=== PATIENT | female | born 1955 | race Caucasian/White ===

== ENCOUNTER 2017-12-02 00:24 | Day surgery (SDC) | payer MEDICARE, OTHER ==
[~2017-12-02 00:24] MED LIST: ALPR.5 PO; AMIT25 PO; AMIT50 PO; ASPI81CH PO; ATOR80 PO; AZIT250 PO; Acidophilus La100 GM PO; Amitriptyline H50 MG PO; Bactrim Ds Tab1 EACH PO; CEFD300 PO; CEFP200 PO; CEPH500 PO; CITA20 PO; CLOP75 PO; Cleocin HCl300 MG PO; Clindamycin HC300 MG PO; Diflucan100 MG PO; ESCI20 PO; FURO40 PO; FURO80 PO; GABA300 PO; GEMF600 PO; HYDACE5 PO; HYDR1TAB94 PO; Hydrocodone-Ap1 EA23 PO; INS70/30PN SC; INSLI100I SC; INSULANI SC; INSULANPEN; INSULANPEN SC; Keflex500 MG PO; LASIX PO; LEVAQUIN PO; LEVE500 PO; LORA.5 PO; METO2.5 PO; Mucinex600 MG PO; OMEP20ER PO; OMEPRAZOLE MAGN20 MG PO; OXYACE5T PO; Omeprazole20 M1 PO; POTCHL20ER PO; PRAV20 PO; PROM25 PO; Percocet 5-3251 EACH PO; RANI150; RANI150 PO; RANO500T PO; ROSU10TA PO; SULTRIDS PO; TRIHYD5075 PO; Ultram50 MG PO; ZESTORETIC 20-121 EA
[2017-12-05] MEDS ORDERED: LEVO750 PO (17:59)
[2018-03-14] MEDS ORDERED: ATOR40TA PO (11:02)
[2018-10-24] MEDS ORDERED: BUPR150ER PO (22:43)
[2018-10-27] MEDS ORDERED: CEPH500 PO (08:46)
[2018-10-27] MEDS ORDERED: Nystop60 GM TOP (08:49)
[2018-10-27] MEDS ORDERED: LAMISIL (08:58)
== END 2017-12-02 23:11 | disposition home or self-care (01) ==
LOC: WOUND 00:24
DX: Z48.00 Encounter for change or removal of nonsurgical wound dressing (principal); E11.21 Type 2 diabetes mellitus with diabetic nephropathy; E11.22 Type 2 diabetes mellitus with diabetic chronic kidney disease; E11.51 Type 2 diabetes mellitus with diabetic peripheral angiopathy without gangrene; I70.245 Atherosclerosis of native arteries of left leg with ulceration of other part of foot; I87.2 Venous insufficiency (chronic) (peripheral); R60.0 Localized edema; J44.9 Chronic obstructive pulmonary disease, unspecified; F17.210 Nicotine dependence, cigarettes, uncomplicated
CPT/HCPCS: 87070; 87077; 87147; 87186; 87205; G0463

== ENCOUNTER 2017-12-06 21:17 | Inpatient (IN) | payer MEDICARE, OTHER ==
[~2017-12-06] VITALS: Ht 165.1 cm; Wt 104.1 kg
[~2017-12-06 21:17] MED LIST changes: +LEVO750 PO
[2017-12-06] MEDS ORDERED: Bactrim Ds Tab1 EACH PO (22:19)
[2017-12-06 23:03] LABS: BASOPHILS ABSOLUTE AUTO 0.05 K/mm3 (0.00-0.23); BASOPHILS PERCENT AUTO 0 % (0-2); EOSINOPHILS ABSOLUTE AUTO 0.38 K/mm3 (0.00-0.68); EOSINOPHILS PERCENT AUTO 3 % (0-6); Hematocrit 39.2 % (33.0-51.0); Hemoglobin 13.1 g/dL (11.5-16.0); IMMATURE GRAN ABSOLUTE AUTO 0.12 K/mm3 (0.00-0.10); IMMATURE GRAN PERCENT AUTO 1 % (0-1); LYMPHOCYTES ABSOLUTE AUTO 3.14 K/mm3 (0.84-5.20); LYMPHOCYTES PERCENT AUTO 22 % (21-46); MONOCYTES ABSOLUTE AUTO 0.85 K/mm3 (0.16-1.47); MONOCYTES PERCENT AUTO 6 % (4-13); Mean Corpuscular HGB 30.8 pg (26.0-34.0); Mean Corpuscular HGB Conc 33.4 g/dL (31.5-36.5); Mean Corpuscular Volume 92 fL (80-100); Mean Platelet Volume 10.6 fL (9.1-12.4); NEUTROPHILS ABSOLUTE AUTO 9.95 K/mm3 (1.96-9.15); NEUTROPHILS PERCENT AUTO 69 % (41-73); Platelet Count 335 K/mm3 (150-400); RDW Coefficient Variation 14.7 % (11.7-14.2); RDW Standard Deviation 49.6 fL (35.1-46.3); Red Blood Cell Count 4.25 M/mm3 (3.80-5.20); White Blood Cell Count 14.49 K/mm3 (4.00-11.30)
[2017-12-06 23:19] LABS: Albumin, Blood 2.3 g/dL (3.4-5.0); Albumin/Globulin Ratio 0.5 (0.8-1.8); Bilirubin, Total 0.2 mg/dL (0.1-1.0); Bun/Creatinine Ratio 34.2 (12.0-20.0); Calcium, Blood 8.7 mg/dL (8.5-10.1); Creatinine, Blood 1.17 mg/dL (0.40-1.00); Globulin, Blood 4.9 g/dL (2.2-4.0); Potassium, Blood 5.1 mmol/L (3.5-5.5); Total Protein, Blood 7.2 g/dL (6.4-8.2)
[2017-12-07 06:52] LABS: BASOPHILS ABSOLUTE AUTO 0.05 K/mm3 (0.00-0.23); BASOPHILS PERCENT AUTO 0 % (0-2); EOSINOPHILS ABSOLUTE AUTO 0.38 K/mm3 (0.00-0.68); EOSINOPHILS PERCENT AUTO 3 % (0-6); Hematocrit 36.3 % (33.0-51.0); Hemoglobin 12.1 g/dL (11.5-16.0); IMMATURE GRAN ABSOLUTE AUTO 0.09 K/mm3 (0.00-0.10); IMMATURE GRAN PERCENT AUTO 1 % (0-1); LYMPHOCYTES ABSOLUTE AUTO 3.69 K/mm3 (0.84-5.20); LYMPHOCYTES PERCENT AUTO 30 % (21-46); MONOCYTES ABSOLUTE AUTO 0.66 K/mm3 (0.16-1.47); MONOCYTES PERCENT AUTO 5 % (4-13); Mean Corpuscular HGB 30.7 pg (26.0-34.0); Mean Corpuscular HGB Conc 33.3 g/dL (31.5-36.5); Mean Corpuscular Volume 92 fL (80-100); Mean Platelet Volume 10.7 fL (9.1-12.4); NEUTROPHILS ABSOLUTE AUTO 7.33 K/mm3 (1.96-9.15); NEUTROPHILS PERCENT AUTO 60 % (41-73); Platelet Count 310 K/mm3 (150-400); RDW Coefficient Variation 14.8 % (11.7-14.2); RDW Standard Deviation 50.5 fL (35.1-46.3); Red Blood Cell Count 3.94 M/mm3 (3.80-5.20)
[2017-12-07 07:07] LABS: Anion Gap 5 mmol/L (6-16); Blood Urea Nitrogen 41 mg/dL (8-24); Bun/Creatinine Ratio 32.8 (12.0-20.0); CO2, Blood 29 mmol/L (21-32); Calcium, Blood 8.3 mg/dL (8.5-10.1); Chloride, Blood 97 mmol/L (98-108); Creatinine, Blood 1.25 mg/dL (0.40-1.00); Glomerular Filtration Rate 46 (60-); Glucose, Blood 325 mg/dL (70-99); Phosphorus, Blood 4.3 mg/dL (2.5-4.9); Potassium, Blood 5.1 mmol/L (3.5-5.5); Sodium, Blood 131 mmol/L (136-145)
[2017-12-08 04:53] LABS: BASOPHILS ABSOLUTE AUTO 0.03 K/mm3 (0.00-0.23); BASOPHILS PERCENT AUTO 0 % (0-2); EOSINOPHILS ABSOLUTE AUTO 0.44 K/mm3 (0.00-0.68); EOSINOPHILS PERCENT AUTO 4 % (0-6); Hematocrit 37.8 % (33.0-51.0); Hemoglobin 12.4 g/dL (11.5-16.0); IMMATURE GRAN ABSOLUTE AUTO 0.06 K/mm3 (0.00-0.10); IMMATURE GRAN PERCENT AUTO 1 % (0-1); LYMPHOCYTES ABSOLUTE AUTO 2.53 K/mm3 (0.84-5.20); LYMPHOCYTES PERCENT AUTO 24 % (21-46); MONOCYTES ABSOLUTE AUTO 0.58 K/mm3 (0.16-1.47); MONOCYTES PERCENT AUTO 6 % (4-13); Mean Corpuscular HGB 30.5 pg (26.0-34.0); Mean Corpuscular HGB Conc 32.8 g/dL (31.5-36.5); Mean Corpuscular Volume 93 fL (80-100); Mean Platelet Volume 10.1 fL (9.1-12.4); NEUTROPHILS ABSOLUTE AUTO 6.73 K/mm3 (1.96-9.15); NEUTROPHILS PERCENT AUTO 65 % (41-73); Platelet Count 285 K/mm3 (150-400); RDW Coefficient Variation 14.6 % (11.7-14.2); RDW Standard Deviation 49.7 fL (35.1-46.3); Red Blood Cell Count 4.07 M/mm3 (3.80-5.20); White Blood Cell Count 10.37 K/mm3 (4.00-11.30)
[2017-12-08 05:13] LABS: Bun/Creatinine Ratio 31.7 (12.0-20.0); Calcium, Blood 8.6 mg/dL (8.5-10.1); Creatinine, Blood 1.01 mg/dL (0.40-1.00); Potassium, Blood 4.5 mmol/L (3.5-5.5)
[2017-12-08 10:52] LABS: Vancomycin, Trough 21.8 ug/mL (5.0-10.0)
[2017-12-09 11:48] LABS: Vancomycin, Trough 14.4 ug/mL (5.0-10.0)
[2017-12-10 05:44] LABS: BASOPHILS ABSOLUTE AUTO 0.02 K/mm3 (0.00-0.23); BASOPHILS PERCENT AUTO 0 % (0-2); EOSINOPHILS ABSOLUTE AUTO 0.41 K/mm3 (0.00-0.68); EOSINOPHILS PERCENT AUTO 5 % (0-6); Hematocrit 36.1 % (33.0-51.0); Hemoglobin 12.2 g/dL (11.5-16.0); IMMATURE GRAN ABSOLUTE AUTO 0.09 K/mm3 (0.00-0.10); IMMATURE GRAN PERCENT AUTO 1 % (0-1); LYMPHOCYTES ABSOLUTE AUTO 2.83 K/mm3 (0.84-5.20); LYMPHOCYTES PERCENT AUTO 34 % (21-46); MONOCYTES ABSOLUTE AUTO 0.66 K/mm3 (0.16-1.47); MONOCYTES PERCENT AUTO 8 % (4-13); Mean Corpuscular HGB 30.8 pg (26.0-34.0); Mean Corpuscular HGB Conc 33.8 g/dL (31.5-36.5); Mean Corpuscular Volume 91 fL (80-100); Mean Platelet Volume 10.4 fL (9.1-12.4); NEUTROPHILS ABSOLUTE AUTO 4.34 K/mm3 (1.96-9.15); NEUTROPHILS PERCENT AUTO 52 % (41-73); Platelet Count 289 K/mm3 (150-400); RDW Coefficient Variation 14.3 % (11.7-14.2); RDW Standard Deviation 48.2 fL (35.1-46.3); Red Blood Cell Count 3.96 M/mm3 (3.80-5.20); White Blood Cell Count 8.35 K/mm3 (4.00-11.30)
[2017-12-10 06:12] LABS: Anion Gap 6 mmol/L (6-16); Blood Urea Nitrogen 19 mg/dL (8-24); Bun/Creatinine Ratio 25.5 (12.0-20.0); CO2, Blood 29 mmol/L (21-32); Calcium, Blood 8.5 mg/dL (8.5-10.1); Chloride, Blood 103 mmol/L (98-108); Creatinine, Blood 0.75 mg/dL (0.40-1.00); Glomerular Filtration Rate >60 (60-); Glucose, Blood 220 mg/dL (70-99); Magnesium, Blood 2.1 mg/dL (1.6-2.4); Potassium, Blood 3.9 mmol/L (3.5-5.5); Sodium, Blood 138 mmol/L (136-145)
[2017-12-10] MEDS ORDERED: ACET325 PO (11:59)
[2017-12-10] MEDS ORDERED: LEVO750 PO (12:00)
[2017-12-10] MEDS ORDERED: ACIDOPHILUS LA1 EACH PO (12:00)
[2017-12-10] MEDS ORDERED: Silvadene20 GM TOP (12:01)
[2017-12-10] MEDS ORDERED: Vibramycin100 MG PO (12:02)
[2018-03-14] MEDS ORDERED: ATOR40TA PO (11:02)
[2018-10-24] MEDS ORDERED: BUPR150ER PO (22:43)
[2018-10-27] MEDS ORDERED: CEPH500 PO (08:46)
[2018-10-27] MEDS ORDERED: Nystop60 GM TOP (08:49)
[2018-10-27] MEDS ORDERED: LAMISIL (08:58)
== END 2017-12-10 14:49 | disposition home or self-care (01) | DRG 638 ==
LOC: ER 21:17 → ERHOLD 22:37 → MEDS 22:37
PROVIDERS: Emergency Medicine; Family Medicine; Internal Medicine
PROC: 3E0234Z Introduction of Serum, Toxoid and Vaccine into Muscle, Percutaneous Approach (ICD-10-PCS; principal; 2017-12-07)
DX: E11.621 Type 2 diabetes mellitus with foot ulcer (principal); B69.89 Cysticercosis of other sites; N17.9 Acute kidney failure, unspecified; N18.3 Chronic kidney disease, stage 3 (moderate); L03.116 Cellulitis of left lower limb; E87.1 Hypo-osmolality and hyponatremia; E11.65 Type 2 diabetes mellitus with hyperglycemia; D72.829 Elevated white blood cell count, unspecified; F17.210 Nicotine dependence, cigarettes, uncomplicated; H26.9 Unspecified cataract; I73.9 Peripheral vascular disease, unspecified; J44.9 Chronic obstructive pulmonary disease, unspecified; L53.9 Erythematous condition, unspecified; M79.605 Pain in left leg; Z23 Encounter for immunization; Z16.30 Resistance to unspecified antimicrobial drugs; Z79.4 Long term (current) use of insulin; Z79.82 Long term (current) use of aspirin; Z86.73 Personal history of transient ischemic attack (TIA), and cerebral infarction without residual deficits
CPT/HCPCS: 36415; 73590; 73620; 80048; 80053; 80069; 80202; 82947; 83605; 83735; 85025; 85651; 87040; 87070; 87075; 87077; 87147; 87186; 87205; 93922; 96365; 96366; 96367; 96372; 96375; 99283; 99285; G0008; J1170; J1650; J1815; J1956; J2405; J3010; J3370; J7030; J7050; Q2038

== ENCOUNTER 2017-12-14 14:19 | Emergency (ER) | payer MEDICARE, OTHER ==
[~2017-12-14] VITALS: Ht 165.1 cm; Wt 108.9 kg
[~2017-12-14 14:19] MED LIST changes: +ACET325 PO; +ACIDOPHILUS LA1 EACH PO; +Silvadene20 GM TOP; +Vibramycin100 MG PO
[2017-12-14 16:08] LABS: BASOPHILS ABSOLUTE AUTO 0.08 K/mm3 (0.00-0.23); BASOPHILS PERCENT AUTO 1 % (0-2); EOSINOPHILS ABSOLUTE AUTO 0.44 K/mm3 (0.00-0.68); EOSINOPHILS PERCENT AUTO 3 % (0-6); Hematocrit 43.3 % (33.0-51.0); Mean Corpuscular HGB 29.9 pg (26.0-34.0); Mean Corpuscular HGB Conc 32.3 g/dL (31.5-36.5); Mean Corpuscular Volume 93 fL (80-100); Mean Platelet Volume 10.4 fL (9.1-12.4); Platelet Count 299 K/mm3 (150-400); RDW Coefficient Variation 14.2 % (11.7-14.2); RDW Standard Deviation 47.5 fL (35.1-46.3); Red Blood Cell Count 4.68 M/mm3 (3.80-5.20); White Blood Cell Count 13.97 K/mm3 (4.00-11.30)
[2017-12-14 16:17] LABS: IMMATURE GRAN ABSOLUTE AUTO 0.14 K/mm3 (0.00-0.10); IMMATURE GRAN PERCENT AUTO 1 % (0-1); LYMPHOCYTES PERCENT AUTO 34 % (21-46); MONOCYTES PERCENT AUTO 6 % (4-13); NEUTROPHILS ABSOLUTE AUTO 7.71 K/mm3 (1.96-9.15); NEUTROPHILS PERCENT AUTO 55 % (41-73)
[2017-12-14 16:30] LABS: Alanine Aminotransfer (ALT/SGP 22 U/L (12-78); Albumin, Blood 2.5 g/dL (3.4-5.0); Albumin/Globulin Ratio 0.5 (0.8-1.8); Alk Phos 132 U/L (50-136); Anion Gap 5 mmol/L (6-16); Aspartate Aminotrans (AST/SGOT 17 U/L (12-37); Bilirubin, Total 0.3 mg/dL (0.1-1.0); Blood Urea Nitrogen 12 mg/dL (8-24); Bun/Creatinine Ratio 20.7 (12.0-20.0); CO2, Blood 26 mmol/L (21-32); Calcium, Blood 8.8 mg/dL (8.5-10.1); Chloride, Blood 105 mmol/L (98-108); Creatinine, Blood 0.58 mg/dL (0.40-1.00); Globulin, Blood 4.8 g/dL (2.2-4.0); Glomerular Filtration Rate >60 (60-); Glucose, Blood 113 mg/dL (70-99); Potassium, Blood 4.8 mmol/L (3.5-5.5); Sodium, Blood 136 mmol/L (136-145); Total Protein, Blood 7.3 g/dL (6.4-8.2)
[2018-03-14] MEDS ORDERED: ATOR40TA PO (11:02)
[2018-10-24] MEDS ORDERED: BUPR150ER PO (22:43)
[2018-10-27] MEDS ORDERED: CEPH500 PO (08:46)
[2018-10-27] MEDS ORDERED: Nystop60 GM TOP (08:49)
[2018-10-27] MEDS ORDERED: LAMISIL (08:58)
== END 2017-12-14 16:57 | disposition left against medical advice (07) ==
LOC: ER 14:19
PROVIDERS: Emergency Medicine
DX: Z53.21 Procedure and treatment not carried out due to patient leaving prior to being seen by health care provider (principal)
CPT/HCPCS: 36415; 80053; 85025; 99283

== ENCOUNTER 2017-12-15 15:23 | Emergency (ER) | payer MEDICARE, OTHER ==
[~2017-12-15] VITALS: Ht 165.1 cm; Wt 108.9 kg
[2018-03-14] MEDS ORDERED: ATOR40TA PO (11:02)
[2018-10-24] MEDS ORDERED: BUPR150ER PO (22:43)
[2018-10-27] MEDS ORDERED: CEPH500 PO (08:46)
[2018-10-27] MEDS ORDERED: Nystop60 GM TOP (08:49)
[2018-10-27] MEDS ORDERED: LAMISIL (08:58)
== END 2017-12-15 20:40 | disposition home or self-care (01) ==
LOC: ER 15:23
DX: E11.621 Type 2 diabetes mellitus with foot ulcer (principal); L97.529 Non-pressure chronic ulcer of other part of left foot with unspecified severity; L97.929 Non-pressure chronic ulcer of unspecified part of left lower leg with unspecified severity; Z88.5 Allergy status to narcotic agent; Z88.6 Allergy status to analgesic agent; Z88.0 Allergy status to penicillin; Z88.8 Allergy status to other drugs, medicaments and biological substances; Z79.899 Other long term (current) drug therapy; Z79.82 Long term (current) use of aspirin; Z79.4 Long term (current) use of insulin; Z79.2 Long term (current) use of antibiotics; J44.9 Chronic obstructive pulmonary disease, unspecified; Z86.73 Personal history of transient ischemic attack (TIA), and cerebral infarction without residual deficits; F17.200 Nicotine dependence, unspecified, uncomplicated
CPT/HCPCS: 99283

== ENCOUNTER 2017-12-16 10:20 | Day surgery (SDC) | payer MEDICARE, OTHER ==
[2018-03-14] MEDS ORDERED: ATOR40TA PO (11:02)
[2018-10-24] MEDS ORDERED: BUPR150ER PO (22:43)
[2018-10-27] MEDS ORDERED: CEPH500 PO (08:46)
[2018-10-27] MEDS ORDERED: Nystop60 GM TOP (08:49)
[2018-10-27] MEDS ORDERED: LAMISIL (08:58)
== END 2017-12-16 11:29 | disposition home or self-care (01) ==
LOC: WOUND 10:20
PROC: 0HBLXZZ Excision of Left Lower Leg Skin, External Approach (ICD-10-PCS; principal; 2017-12-16)
DX: Z48.00 Encounter for change or removal of nonsurgical wound dressing (principal); E11.21 Type 2 diabetes mellitus with diabetic nephropathy; E11.22 Type 2 diabetes mellitus with diabetic chronic kidney disease; I70.209 Unspecified atherosclerosis of native arteries of extremities, unspecified extremity; I87.2 Venous insufficiency (chronic) (peripheral); R60.0 Localized edema; E11.621 Type 2 diabetes mellitus with foot ulcer; J44.9 Chronic obstructive pulmonary disease, unspecified; F17.210 Nicotine dependence, cigarettes, uncomplicated; E11.51 Type 2 diabetes mellitus with diabetic peripheral angiopathy without gangrene
CPT/HCPCS: G0463

== ENCOUNTER 2017-12-26 09:17 | Emergency (ER) | payer MEDICARE, OTHER ==
[~2017-12-26] VITALS: Ht 165.1 cm; Wt 108.9 kg
[2017-12-26] MEDS ORDERED: BUME2 PO (09:42)
[2018-03-14] MEDS ORDERED: ATOR40TA PO (11:02)
[2018-10-24] MEDS ORDERED: BUPR150ER PO (22:43)
[2018-10-27] MEDS ORDERED: CEPH500 PO (08:46)
[2018-10-27] MEDS ORDERED: Nystop60 GM TOP (08:49)
[2018-10-27] MEDS ORDERED: LAMISIL (08:58)
== END 2017-12-26 11:05 | disposition home or self-care (01) ==
LOC: ER 09:17
DX: S01.81XA Laceration without foreign body of other part of head, initial encounter (principal); J44.9 Chronic obstructive pulmonary disease, unspecified; E11.9 Type 2 diabetes mellitus without complications; F17.210 Nicotine dependence, cigarettes, uncomplicated; Z79.82 Long term (current) use of aspirin; Z90.49 Acquired absence of other specified parts of digestive tract; Z90.710 Acquired absence of both cervix and uterus; Z86.73 Personal history of transient ischemic attack (TIA), and cerebral infarction without residual deficits; Z88.6 Allergy status to analgesic agent; Z88.0 Allergy status to penicillin; Z91.09 Other allergy status, other than to drugs and biological substances; Z88.5 Allergy status to narcotic agent; Z88.8 Allergy status to other drugs, medicaments and biological substances; Z79.899 Other long term (current) drug therapy; Z79.4 Long term (current) use of insulin; W05.0XXA Fall from non-moving wheelchair, initial encounter
CPT/HCPCS: 99283

== ENCOUNTER 2018-01-06 10:20 | Day surgery (SDC) | payer MEDICARE, OTHER ==
[~2018-01-06 10:20] MED LIST changes: +BUME2 PO
[2018-03-14] MEDS ORDERED: ATOR40TA PO (11:02)
[2018-10-24] MEDS ORDERED: BUPR150ER PO (22:43)
[2018-10-27] MEDS ORDERED: CEPH500 PO (08:46)
[2018-10-27] MEDS ORDERED: Nystop60 GM TOP (08:49)
[2018-10-27] MEDS ORDERED: LAMISIL (08:58)
== END 2018-01-06 14:20 | disposition home or self-care (01) ==
LOC: WOUND
DX: Z48.00 Encounter for change or removal of nonsurgical wound dressing (principal); E11.621 Type 2 diabetes mellitus with foot ulcer; E11.21 Type 2 diabetes mellitus with diabetic nephropathy; E11.622 Type 2 diabetes mellitus with other skin ulcer; I70.209 Unspecified atherosclerosis of native arteries of extremities, unspecified extremity; E11.22 Type 2 diabetes mellitus with diabetic chronic kidney disease; I87.2 Venous insufficiency (chronic) (peripheral); R60.0 Localized edema; J44.9 Chronic obstructive pulmonary disease, unspecified; F17.210 Nicotine dependence, cigarettes, uncomplicated
CPT/HCPCS: G0463

== ENCOUNTER 2018-02-25 19:08 | Emergency (ER) | payer MEDICARE, OTHER ==
[~2018-02-25] VITALS: Ht 165.1 cm; Wt 108.9 kg
[~2018-02-25 19:08] MED LIST changes: +BUME1; -BUME2 PO
[2018-02-25] MEDS ORDERED: Bactrim Ds Tab1 EACH PO (20:03)
[2018-02-25] MEDS ORDERED: LEVFLO500 PO (20:03)
== END 2018-02-25 20:24 | disposition home or self-care (01) ==
LOC: ER 19:08
DX: L97.529 Non-pressure chronic ulcer of other part of left foot with unspecified severity (principal); E11.9 Type 2 diabetes mellitus without complications; J44.9 Chronic obstructive pulmonary disease, unspecified; F17.210 Nicotine dependence, cigarettes, uncomplicated; Z88.5 Allergy status to narcotic agent; Z88.0 Allergy status to penicillin; Z88.8 Allergy status to other drugs, medicaments and biological substances; Z79.82 Long term (current) use of aspirin; Z79.4 Long term (current) use of insulin
CPT/HCPCS: 87070; 87077; 87205; 99283

== ENCOUNTER 2018-03-08 07:57 | Day surgery (SDC) | payer MEDICARE, OTHER ==
[~2018-03-08 07:57] MED LIST changes: -BUME1; +BUME2 PO; +LEVFLO500 PO
[2018-03-14] MEDS ORDERED: ATOR40TA PO (11:02)
== END 2018-03-08 09:31 | disposition home or self-care (01) ==
LOC: WOUND
DX: Z48.00 Encounter for change or removal of nonsurgical wound dressing (principal); E11.51 Type 2 diabetes mellitus with diabetic peripheral angiopathy without gangrene; I70.202 Unspecified atherosclerosis of native arteries of extremities, left leg; F17.210 Nicotine dependence, cigarettes, uncomplicated; Z22.322 Carrier or suspected carrier of Methicillin resistant Staphylococcus aureus; S80.829A Blister (nonthermal), unspecified lower leg, initial encounter; E66.9 Obesity, unspecified; Z79.4 Long term (current) use of insulin; L97.822 Non-pressure chronic ulcer of other part of left lower leg with fat layer exposed
CPT/HCPCS: 99406; G0463

== ENCOUNTER 2018-05-25 12:17 | Day surgery (SDC) | payer MEDICARE, OTHER ==
[~2018-05-25 12:17] MED LIST changes: +ATOR40TA PO
== END 2018-05-25 14:43 | disposition home or self-care (01) ==
LOC: WOUND
PROC: 0HBNXZZ Excision of Left Foot Skin, External Approach (ICD-10-PCS; principal; 2018-05-25)
PROC: 0HBLXZZ Excision of Left Lower Leg Skin, External Approach (ICD-10-PCS; principal; 2018-05-25)
DX: E11.621 Type 2 diabetes mellitus with foot ulcer (principal); E11.622 Type 2 diabetes mellitus with other skin ulcer; I70.249 Atherosclerosis of native arteries of left leg with ulceration of unspecified site; L97.922 Non-pressure chronic ulcer of unspecified part of left lower leg with fat layer exposed; L97.509 Non-pressure chronic ulcer of other part of unspecified foot with unspecified severity; Z79.4 Long term (current) use of insulin
CPT/HCPCS: G0463

== ENCOUNTER → 2018-07-11 | Outpatient (CLI) | payer MEDICARE, OTHER | LOC: LAB 18:10 → LAB SHORT 18:10 | DX: L08.9 Local infection of the skin and subcutaneous tissue, unspecified (principal); I87.2 Venous insufficiency (chronic) (peripheral); L97.829 Non-pressure chronic ulcer of other part of left lower leg with unspecified severity | CPT/HCPCS: 87070; 87205 ==

== ENCOUNTER 2018-08-13 22:24 | Emergency (ER) | payer MEDICARE, OTHER ==
[~2018-08-13] VITALS: Ht 165.1 cm; Wt 108.9 kg
[2018-08-13 23:13] LABS: BASOPHILS ABSOLUTE AUTO 0.04 K/mm3 (0.00-0.23); BASOPHILS PERCENT AUTO 0 % (0-2); EOSINOPHILS ABSOLUTE AUTO 0.33 K/mm3 (0.00-0.68); EOSINOPHILS PERCENT AUTO 3 % (0-6); Hematocrit 43.6 % (33.0-51.0); Hemoglobin 14.4 g/dL (11.5-16.0); IMMATURE GRAN ABSOLUTE AUTO 0.08 K/mm3 (0.00-0.10); IMMATURE GRAN PERCENT AUTO 1 % (0-1); LYMPHOCYTES ABSOLUTE AUTO 3.41 K/mm3 (0.84-5.20); LYMPHOCYTES PERCENT AUTO 27 % (21-46); MONOCYTES ABSOLUTE AUTO 0.76 K/mm3 (0.16-1.47); MONOCYTES PERCENT AUTO 6 % (4-13); Mean Corpuscular HGB 29.6 pg (26.0-34.0); Mean Corpuscular Volume 90 fL (80-100); Mean Platelet Volume 11.3 fL (9.1-12.4); NEUTROPHILS ABSOLUTE AUTO 8.26 K/mm3 (1.96-9.15); NEUTROPHILS PERCENT AUTO 64 % (41-73); Platelet Count 300 K/mm3 (150-400); RDW Coefficient Variation 14.6 % (11.7-14.2); RDW Standard Deviation 47.7 fL (35.1-46.3); Red Blood Cell Count 4.86 M/mm3 (3.80-5.20); White Blood Cell Count 12.88 K/mm3 (4.00-11.30)
[2018-08-13 23:32] LABS: Albumin, Blood 2.8 g/dL (3.4-5.0); Albumin/Globulin Ratio 0.5 (0.8-1.8); Bilirubin, Total 0.2 mg/dL (0.1-1.0); Bun/Creatinine Ratio 52.6 (12.0-20.0); Calcium, Blood 8.7 mg/dL (8.5-10.1); Creatinine, Blood 1.16 mg/dL (0.40-1.00); Globulin, Blood 5.7 g/dL (2.2-4.0); Potassium, Blood 3.9 mmol/L (3.5-5.5); Total Protein, Blood 8.5 g/dL (6.4-8.2)
[2018-08-14 02:56] LABS: Source, Urine Clean Catch
[2018-08-14 03:11] LABS: Bilirubin, Urine Neg (Neg); Blood, Urine Neg (Neg); Glucose Qualitative, Urine 2+ (Neg); Ketones, Urine Neg (Neg); Leukocyte Esterase, Urine 3+ (Neg); Nitrite, Urine Neg (Neg); Protein, Urine 3+ (Neg); Urobilinogen, Urine NORM (Normal)
[2018-08-14 03:31] LABS: Appearance, Urine Hazy (Clear); Color, Urine Yellow (P-Yellow)
[2018-08-14 03:33] LABS: Bacteria Mod /hpf; Red Blood Cells, Urine Not Seen /hpf (0-2); Squamous Epithelial Cells Many /hpf (Few)
== END 2018-08-14 03:35 | disposition home or self-care (01) ==
LOC: ER 22:24
PROVIDERS: Emergency Medicine
DX: S13.9XXA Sprain of joints and ligaments of unspecified parts of neck, initial encounter (principal); X58.XXXA Exposure to other specified factors, initial encounter; Z88.5 Allergy status to narcotic agent; Z88.8 Allergy status to other drugs, medicaments and biological substances; Z88.6 Allergy status to analgesic agent; Z88.0 Allergy status to penicillin; Z79.899 Other long term (current) drug therapy; Z79.4 Long term (current) use of insulin; Z79.82 Long term (current) use of aspirin; E11.9 Type 2 diabetes mellitus without complications; J44.9 Chronic obstructive pulmonary disease, unspecified; Z86.73 Personal history of transient ischemic attack (TIA), and cerebral infarction without residual deficits; F17.200 Nicotine dependence, unspecified, uncomplicated
CPT/HCPCS: 36415; 70450; 71046; 80053; 81001; 85025; 93005; 93010; 96360; 96361; 99285-25; J7030

== ENCOUNTER 2018-12-01 14:35 | Day surgery (SDC) | payer MEDICARE, OTHER ==
[~2018-12-01 14:35] MED LIST changes: +BUPR150ER PO; +LAMISIL; +Nystop60 GM TOP
== END 2018-12-01 22:46 | disposition home or self-care (01) ==
LOC: WOUND 14:35
DX: L97.322 Non-pressure chronic ulcer of left ankle with fat layer exposed (principal); L97.822 Non-pressure chronic ulcer of other part of left lower leg with fat layer exposed; L97.512 Non-pressure chronic ulcer of other part of right foot with fat layer exposed; L97.811 Non-pressure chronic ulcer of other part of right lower leg limited to breakdown of skin; L97.821 Non-pressure chronic ulcer of other part of left lower leg limited to breakdown of skin; I87.2 Venous insufficiency (chronic) (peripheral); I73.9 Peripheral vascular disease, unspecified; E11.65 Type 2 diabetes mellitus with hyperglycemia; E11.40 Type 2 diabetes mellitus with diabetic neuropathy, unspecified; I69.959 Hemiplegia and hemiparesis following unspecified cerebrovascular disease affecting unspecified side; I11.0 Hypertensive heart disease with heart failure; I25.10 Atherosclerotic heart disease of native coronary artery without angina pectoris; Z89.511 Acquired absence of right leg below knee

== ENCOUNTER 2018-12-13 08:45 | Day surgery (SDC) | payer MEDICARE, OTHER | END 2018-12-13 22:35 | disposition home or self-care (01) | LOC: WOUND 08:45 | DX: L97.322 Non-pressure chronic ulcer of left ankle with fat layer exposed (principal); L97.822 Non-pressure chronic ulcer of other part of left lower leg with fat layer exposed; L97.821 Non-pressure chronic ulcer of other part of left lower leg limited to breakdown of skin; L97.828 Non-pressure chronic ulcer of other part of left lower leg with other specified severity; L97.812 Non-pressure chronic ulcer of other part of right lower leg with fat layer exposed; I87.2 Venous insufficiency (chronic) (peripheral); Z89.511 Acquired absence of right leg below knee; I73.9 Peripheral vascular disease, unspecified; E11.65 Type 2 diabetes mellitus with hyperglycemia; E11.40 Type 2 diabetes mellitus with diabetic neuropathy, unspecified; I69.959 Hemiplegia and hemiparesis following unspecified cerebrovascular disease affecting unspecified side; I11.0 Hypertensive heart disease with heart failure; I25.10 Atherosclerotic heart disease of native coronary artery without angina pectoris; Z72.0 Tobacco use; E11.622 Type 2 diabetes mellitus with other skin ulcer; I50.9 Heart failure, unspecified; R60.0 Localized edema; M62.562 Muscle wasting and atrophy, not elsewhere classified, left lower leg | CPT/HCPCS: 36415; 73720; 80048; 82374; 82565; 84132; 84295; 85025; 87070; 87075; 87147; 87184; 87205; A9579 ==

== ENCOUNTER 2018-12-19 10:45 | Day surgery (SDC) | payer MEDICARE, OTHER | END 2018-12-19 22:36 | disposition home or self-care (01) | LOC: WOUND 10:45 | PROC: 0HBLXZZ Excision of Left Lower Leg Skin, External Approach (ICD-10-PCS; principal; 2018-12-19) | PROC: 0HBKXZZ Excision of Right Lower Leg Skin, External Approach (ICD-10-PCS; principal; 2018-12-19) | DX: E11.622 Type 2 diabetes mellitus with other skin ulcer (principal); L97.322 Non-pressure chronic ulcer of left ankle with fat layer exposed; L97.822 Non-pressure chronic ulcer of other part of left lower leg with fat layer exposed; L97.821 Non-pressure chronic ulcer of other part of left lower leg limited to breakdown of skin; L97.828 Non-pressure chronic ulcer of other part of left lower leg with other specified severity; L97.812 Non-pressure chronic ulcer of other part of right lower leg with fat layer exposed; I87.2 Venous insufficiency (chronic) (peripheral); Z89.511 Acquired absence of right leg below knee ==

== ENCOUNTER 2018-12-29 13:33 | Day surgery (SDC) | payer MEDICARE, OTHER ==
[2018-12-29] MEDS ORDERED: LEVFLO500 PO (18:25)
== END 2018-12-29 23:04 | disposition home or self-care (01) ==
LOC: WOUND 13:33
DX: L97.322 Non-pressure chronic ulcer of left ankle with fat layer exposed (principal); L97.822 Non-pressure chronic ulcer of other part of left lower leg with fat layer exposed; L97.821 Non-pressure chronic ulcer of other part of left lower leg limited to breakdown of skin; L97.812 Non-pressure chronic ulcer of other part of right lower leg with fat layer exposed; I87.2 Venous insufficiency (chronic) (peripheral); I73.9 Peripheral vascular disease, unspecified; E11.65 Type 2 diabetes mellitus with hyperglycemia; E11.40 Type 2 diabetes mellitus with diabetic neuropathy, unspecified; I69.959 Hemiplegia and hemiparesis following unspecified cerebrovascular disease affecting unspecified side; I11.0 Hypertensive heart disease with heart failure; I25.10 Atherosclerotic heart disease of native coronary artery without angina pectoris; Z89.511 Acquired absence of right leg below knee; Z79.4 Long term (current) use of insulin; Z79.01 Long term (current) use of anticoagulants

== ENCOUNTER 2018-12-29 17:38 | Observation (INO) | payer MEDICARE, OTHER ==
[~2018-12-29] VITALS: Ht 165.1 cm; Wt 112.4 kg
[2018-12-29] MEDS ORDERED: LEVFLO500 PO (18:25)
[2018-12-29 18:26] LABS: BASOPHILS ABSOLUTE AUTO 0.04 K/mm3 (0.00-0.23); BASOPHILS PERCENT AUTO 0 % (0-2); EOSINOPHILS ABSOLUTE AUTO 0.31 K/mm3 (0.00-0.68); EOSINOPHILS PERCENT AUTO 2 % (0-6); Hematocrit 39.3 % (33.0-51.0); Hemoglobin 12.4 g/dL (11.5-16.0); IMMATURE GRAN ABSOLUTE AUTO 0.12 K/mm3 (0.00-0.10); IMMATURE GRAN PERCENT AUTO 1 % (0-1); LYMPHOCYTES ABSOLUTE AUTO 3.69 K/mm3 (0.84-5.20); LYMPHOCYTES PERCENT AUTO 28 % (21-46); MONOCYTES ABSOLUTE AUTO 0.78 K/mm3 (0.16-1.47); MONOCYTES PERCENT AUTO 6 % (4-13); Mean Corpuscular HGB 30.2 pg (26.0-34.0); Mean Corpuscular HGB Conc 31.6 g/dL (31.5-36.5); Mean Corpuscular Volume 96 fL (80-100); Mean Platelet Volume 10.1 fL (9.1-12.4); NEUTROPHILS PERCENT AUTO 63 % (41-73); Platelet Count 337 K/mm3 (150-400); RDW Coefficient Variation 14.6 % (11.7-14.2); RDW Standard Deviation 51.3 fL (35.1-46.3); White Blood Cell Count 13.24 K/mm3 (4.00-11.30)
[2018-12-29 18:51] LABS: Albumin, Blood 2.6 g/dL (3.4-5.0); Albumin/Globulin Ratio 0.4 (0.8-1.8); Bilirubin, Total 0.2 mg/dL (0.1-1.0); Bun/Creatinine Ratio 17.2 (12.0-20.0); Calcium, Blood 8.9 mg/dL (8.5-10.1); Creatinine, Blood 1.16 mg/dL (0.40-1.00); Globulin, Blood 5.9 g/dL (2.2-4.0); Potassium, Blood 4.1 mmol/L (3.5-5.5); Total Protein, Blood 8.5 g/dL (6.4-8.2)
--- NOTE | 2018-12-30 00:10 | NUR ---
PATIENT IS A NEW ADMIT FROM THE ED. FOUR PERSON TRANSFER FROM [facility] TO BED. RIGHT BKA. W/C BOUND AT HOME. AXOX 3. NS INFUSING AT 20OO mL/HR. PATIENT ORIENTED TO ROOM AND CALL LIGHT SYSTEM. CONTACT PRECAUTIONS. PATIENT DENIES PAIN, SOB, AND N/V. CALL LIGHT IN REACH. WILL CONTINUE TO MONITOR.
--- NOTE | 2018-12-30 00:15 | NUR ---
PROVIDER CONSULT FOR PODIATRY NOT AVAILABLE UNTIL December- PER CHARGE NURSE. OFFICE [phone].
--- NOTE | 2018-12-30 02:19 | NUR ---
IV ABXS INFUSING FOLLOWED BY NORMAL SALINE. PATIENT RESTING IN BED. ON 2L O2 NC. CALL LIGHT IN REACH. WILL CONTINUE TO MONITOR.
--- NOTE | 2018-12-30 03:40 | NUR ---
SHIFT SUMMARY PATIENT IS A NEW ADMIT FROM THE ED. AXO X3 AND W/C BOUND WITH R BKA. DENIES PAIN, SOB, AND N/V. PIV REMAINS INTACT. NS INFUSING AT 200 mL/HR. IV ABXS INFUSED. CBG 125. ON 2L O2 NC BASELINE. WATCHING TV. COOPERATIVE WITH CARE. PODIATRY CONSULT NOT AVAILABLE UNTIL December-[place]. CONTACT PRECAUTIONS. CONSENT TO PHOTOGRAPH SIGNED AND WOUND PICTURES IN CHART. PATIENT REPORTS SHE CAME FROM WOUND CLINIC. CALL LIGHT IN REACH. BED IN LOWEST POSITION. WILL CONTINUE TO MONITOR UNTIL DAY SHIFT NURSE ASSUMES CARE.
[2018-12-30 04:31] LABS: Hemoglobin 10.5 g/dL (11.5-16.0); Mean Corpuscular HGB 30.9 pg (26.0-34.0); Mean Corpuscular HGB Conc 31.8 g/dL (31.5-36.5); Mean Corpuscular Volume 97 fL (80-100); Mean Platelet Volume 10.2 fL (9.1-12.4); Platelet Count 271 K/mm3 (150-400); RDW Coefficient Variation 14.6 % (11.7-14.2); RDW Standard Deviation 52.1 fL (35.1-46.3); White Blood Cell Count 12.58 K/mm3 (4.00-11.30)
[2018-12-30 04:47] LABS: Albumin, Blood 2.1 g/dL (3.4-5.0); Albumin/Globulin Ratio 0.4 (0.8-1.8); Bilirubin, Total 0.2 mg/dL (0.1-1.0); Bun/Creatinine Ratio 18.7 (12.0-20.0); Calcium, Blood 7.9 mg/dL (8.5-10.1); Creatinine, Blood 1.23 mg/dL (0.40-1.00); Globulin, Blood 4.7 g/dL (2.2-4.0); Potassium, Blood 3.9 mmol/L (3.5-5.5); Total Protein, Blood 6.8 g/dL (6.4-8.2)
--- NOTE | 2018-12-30 05:19 | NUR ---
WOUND CLINIC CONSULT CALLED IN TO ANSWERING SERIVCE FOR DR KU.
--- NOTE | 2018-12-30 06:41 | NUR ---
NS AT 200 mL/HR DC'D AND BAG ONE OF ONE NS INFUSING AT 75mL/HR. CALL LIGHT IN REACH. WILL CONTINUE TO MONITOR.
--- NOTE | 2018-12-30 16:24 | NUR ---
PATIENT DISCHARGE: PATIENT DISCHARGED TO HOME THIS SHIFT. MEDICATION RECONCILIATION COMPLETED; NO NEW MEDS TO REPORT. DISCHARGE EDUCATION COMPLETED WITH PATIENT AND FAMILY. PATIENT TRANSPORTED TO EXIT BY [facility] STAFF WITH WHEELCHAIR AT 1605. PATIENT DEPARTED [facility] VIA PRIVATE AUTO.
== END 2018-12-30 16:01 | disposition home or self-care (01) ==
LOC: ER 17:38 → MEDS 17:39 → ER 21:25 → MEDS 22:13 → ER 22:14 → MEDS 22:31
PROVIDERS: Physician Assistant; ADMIT Internal Medicine
DX: E11.621 Type 2 diabetes mellitus with foot ulcer (principal); L97.529 Non-pressure chronic ulcer of other part of left foot with unspecified severity; L97.829 Non-pressure chronic ulcer of other part of left lower leg with unspecified severity; E11.51 Type 2 diabetes mellitus with diabetic peripheral angiopathy without gangrene; E11.40 Type 2 diabetes mellitus with diabetic neuropathy, unspecified; J44.9 Chronic obstructive pulmonary disease, unspecified; R21 Rash and other nonspecific skin eruption; E66.9 Obesity, unspecified; Z86.73 Personal history of transient ischemic attack (TIA), and cerebral infarction without residual deficits; K21.9 Gastro-esophageal reflux disease without esophagitis; F17.210 Nicotine dependence, cigarettes, uncomplicated; Z79.899 Other long term (current) drug therapy; Z79.82 Long term (current) use of aspirin; Z79.4 Long term (current) use of insulin; Z88.6 Allergy status to analgesic agent; Z88.8 Allergy status to other drugs, medicaments and biological substances; Z88.5 Allergy status to narcotic agent; Z88.0 Allergy status to penicillin; Z91.09 Other allergy status, other than to drugs and biological substances; Z89.511 Acquired absence of right leg below knee; Z68.41 Body mass index [BMI] 40.0-44.9, adult
CPT/HCPCS: 36415; 73630; 80053; 82947; 83605; 85025; 85027; 87040; 96361; 96365; 96372; 96375; 96376; 99285-25; G0378; J0692; J0696; J1650; J2270; J3370; J7030; J7050

== ENCOUNTER 2019-01-05 12:35 | Day surgery (SDC) | payer MEDICARE, OTHER | END 2019-01-05 22:55 | disposition home or self-care (01) | LOC: WOUND 12:35 | DX: E11.622 Type 2 diabetes mellitus with other skin ulcer (principal); L97.322 Non-pressure chronic ulcer of left ankle with fat layer exposed; L97.822 Non-pressure chronic ulcer of other part of left lower leg with fat layer exposed; L97.821 Non-pressure chronic ulcer of other part of left lower leg limited to breakdown of skin; L97.828 Non-pressure chronic ulcer of other part of left lower leg with other specified severity; L97.812 Non-pressure chronic ulcer of other part of right lower leg with fat layer exposed; I87.2 Venous insufficiency (chronic) (peripheral); Z89.511 Acquired absence of right leg below knee; I73.9 Peripheral vascular disease, unspecified; E11.65 Type 2 diabetes mellitus with hyperglycemia; E11.40 Type 2 diabetes mellitus with diabetic neuropathy, unspecified; I69.959 Hemiplegia and hemiparesis following unspecified cerebrovascular disease affecting unspecified side; I11.0 Hypertensive heart disease with heart failure; I50.9 Heart failure, unspecified; Z79.01 Long term (current) use of anticoagulants; E11.42 Type 2 diabetes mellitus with diabetic polyneuropathy; J44.9 Chronic obstructive pulmonary disease, unspecified ==

== ENCOUNTER 2019-02-09 12:11 | Inpatient (IN) | payer MEDICARE, OTHER ==
[~2019-02-09] VITALS: Ht 162.6 cm; Wt 109.8 kg
[~2019-02-09 12:11] MED LIST changes: -AMIT50 PO; -ATOR40TA PO; +Amitriptyline100 MG PO; +Aspirin EC81 MG PO
[2019-02-09 12:40] LABS: BASOPHILS ABSOLUTE AUTO 0.06 K/mm3 (0.00-0.23); BASOPHILS PERCENT AUTO 0 % (0-2); EOSINOPHILS ABSOLUTE AUTO 0.26 K/mm3 (0.00-0.68); EOSINOPHILS PERCENT AUTO 2 % (0-6); Hemoglobin 12.4 g/dL (11.5-16.0); IMMATURE GRAN PERCENT AUTO 1 % (0-1); LYMPHOCYTES ABSOLUTE AUTO 3.36 K/mm3 (0.84-5.20); LYMPHOCYTES PERCENT AUTO 25 % (21-46); MONOCYTES ABSOLUTE AUTO 0.69 K/mm3 (0.16-1.47); MONOCYTES PERCENT AUTO 5 % (4-13); Mean Corpuscular HGB 30.2 pg (26.0-34.0); Mean Corpuscular HGB Conc 31.8 g/dL (31.5-36.5); Mean Corpuscular Volume 95 fL (80-100); Mean Platelet Volume 10.7 fL (9.1-12.4); NEUTROPHILS ABSOLUTE AUTO 9.07 K/mm3 (1.96-9.15); NEUTROPHILS PERCENT AUTO 67 % (41-73); Platelet Count 412 K/mm3 (150-400); RDW Coefficient Variation 14.5 % (11.7-14.2); RDW Standard Deviation 50.7 fL (35.1-46.3); White Blood Cell Count 13.54 K/mm3 (4.00-11.30)
[2019-02-09 13:03] LABS: Bun/Creatinine Ratio 34.4 (12.0-20.0); Calcium, Blood 9.7 mg/dL (8.5-10.1); Creatinine, Blood 1.22 mg/dL (0.40-1.00); Potassium, Blood 4.2 mmol/L (3.5-5.5)
[2019-02-09] MEDS ORDERED: LEVE500 PO (20:52)
[2019-02-09] MEDS ORDERED: SPIR25 PO (20:57)
[2019-02-09] MEDS ORDERED: CARV3.125 PO (20:57)
[2019-02-09] MEDS ORDERED: METO2.5 PO (20:58)
[2019-02-09] MEDS ORDERED: CLOP75 PO (20:58)
[2019-02-09] MEDS ORDERED: CITA20 PO (20:59)
--- NOTE | 2019-02-10 04:04 | NUR ---
NOC SHIFT SUMMARY PT ADMITTED 02/09 FOR CELLULITIS OF L FOOT AND DIABETIC FOOT ULCERS. SHE IS PLEASANT AND COOPERATIVE WITH CARE. AAOX4, RESP EVEN AND UNLABORED. CURRENLY SLEEPING. APPEARS IN NO ACUTE DISTRESS. NO CHANGES NOTED THIS SHIFT. VSS. WILL CONTINUE TO MONITOR.
[2019-02-10 04:45] LABS: BASOPHILS ABSOLUTE AUTO 0.05 K/mm3 (0.00-0.23); BASOPHILS PERCENT AUTO 0 % (0-2); EOSINOPHILS ABSOLUTE AUTO 0.31 K/mm3 (0.00-0.68); EOSINOPHILS PERCENT AUTO 3 % (0-6); Hematocrit 33.6 % (33.0-51.0); Hemoglobin 10.6 g/dL (11.5-16.0); IMMATURE GRAN ABSOLUTE AUTO 0.08 K/mm3 (0.00-0.10); IMMATURE GRAN PERCENT AUTO 1 % (0-1); LYMPHOCYTES ABSOLUTE AUTO 2.93 K/mm3 (0.84-5.20); LYMPHOCYTES PERCENT AUTO 23 % (21-46); MONOCYTES ABSOLUTE AUTO 0.97 K/mm3 (0.16-1.47); MONOCYTES PERCENT AUTO 8 % (4-13); Mean Corpuscular HGB 30.2 pg (26.0-34.0); Mean Corpuscular HGB Conc 31.5 g/dL (31.5-36.5); Mean Corpuscular Volume 96 fL (80-100); Mean Platelet Volume 10.4 fL (9.1-12.4); NEUTROPHILS ABSOLUTE AUTO 8.18 K/mm3 (1.96-9.15); NEUTROPHILS PERCENT AUTO 65 % (41-73); Platelet Count 341 K/mm3 (150-400); RDW Coefficient Variation 14.4 % (11.7-14.2); RDW Standard Deviation 50.8 fL (35.1-46.3); Red Blood Cell Count 3.51 M/mm3 (3.80-5.20); White Blood Cell Count 12.52 K/mm3 (4.00-11.30)
[2019-02-10 05:02] LABS: Bun/Creatinine Ratio 33.3 (12.0-20.0); Calcium, Blood 8.9 mg/dL (8.5-10.1); Creatinine, Blood 1.26 mg/dL (0.40-1.00); Potassium, Blood 3.7 mmol/L (3.5-5.5)
--- NOTE | 2019-02-10 18:37 | NUR ---
SHIFT SUMMARY PT OOB WITH 2 PERSON ASSIST TO BSC. RIGHT BKA, LEFT GREAT TOE ULCERATIONS. DR. BRUNNER IN TO SEE PATIENT THIS EVENING ORDERED VASCULAR SURGEON CONSULT. PLEASANT A AND OX3. MEDICATED ONCE EARLY THIS A.M. FOR PAIN. APPEARS IN NO DISTRESS; TALKED WITH FAMILY AND NAPPED TODAY. EATING AND DRINKING WELL.
[2019-02-10 18:59] LABS: Vancomycin, Trough 23.6 ug/mL (5.0-10.0)
[2019-02-11 05:14] LABS: Hematocrit 33.8 % (33.0-51.0); Mean Corpuscular HGB 30.5 pg (26.0-34.0); Mean Corpuscular HGB Conc 32.5 g/dL (31.5-36.5); Mean Corpuscular Volume 94 fL (80-100); Mean Platelet Volume 10.4 fL (9.1-12.4); Platelet Count 362 K/mm3 (150-400); RDW Coefficient Variation 14.3 % (11.7-14.2); RDW Standard Deviation 49.2 fL (35.1-46.3); Red Blood Cell Count 3.61 M/mm3 (3.80-5.20); White Blood Cell Count 10.86 K/mm3 (4.00-11.30)
[2019-02-11 05:39] LABS: Anion Gap 10 mmol/L (6-16); Blood Urea Nitrogen 32 mg/dL (8-24); Bun/Creatinine Ratio 33.3 (12.0-20.0); CO2, Blood 30 mmol/L (21-32); Calcium, Blood 8.8 mg/dL (8.5-10.1); Chloride, Blood 99 mmol/L (98-108); Creatinine, Blood 0.96 mg/dL (0.40-1.00); Glomerular Filtration Rate >60 (60-); Glucose, Blood 141 mg/dL (70-99); Potassium, Blood 4.1 mmol/L (3.5-5.5); Sodium, Blood 139 mmol/L (136-145); Vancomycin, Random 15.7 ug/mL
--- NOTE | 2019-02-11 06:17 | NUR ---
Rn summary: Patient is alert and oriented. Patient is sleepy on and off. Lungs were Clear, dim in bases. Left foot is open to air. Dr. Dumont had asked that a sponge drsg be applied. Mepiex drsg to left big toe and outer side of foot. Pt has a Rt BKA. Pt has a yeast rash under abdominal fold and groin, area cleaned and nystatin powder applied. IV is painful so restarted by Sheela RN to LAC. Pt is receiving IV ABX as ordered. Pt has rested well especially the 2nd half of shift. Pt has been using the bedpan, voids large amounts. Call light is in reach. Plan is for Dr. John to evaluate, he stated to day shift RN he would see her on Wednesday. IV antibiotics as ordered.
--- NOTE | 2019-02-11 18:14 | NUR ---
SUMMARY PT SITTING UP IN BED EATING DINNER, HAS BEEN PLEASANT AND COOPERATIVE WITH CARE, MED ONCE PER EMAR FOR PAIN, DRESSING TO HER R FOOT CHANGED, WOUND BED HAS PURULENT AND BLACK DRAINAGE, COVERED IT WITH CALCIUM ALGINATE, THEN A FOAM DRESSING, KERLIX AND THEN COBAN, PT MAYRA WELL, VSS, NO ACUTE CHANGES, WILL CONT TO MONITOR
--- NOTE | 2019-02-12 04:30 | NUR ---
SHIFT SUMMARY PT HAS DENIED NEEDS T/O THE NIGHT. SHE HAS USED THE BEDPAN A FEW TIMES THIS SHIFT. VITALS STABLE. NEW IV ESTABLISHED TO LEFT FOREARM THIS SHIFT USING ULTRASOUND. PT STILL PENDING CONSULT FROM VASCULAR SURGEON AT THIS TIME, WILL BE SEEN BY HIM ON WEDNESDAY. PT AWARE OF CURRENT POC. NO CHANGES WILL CONTINUE TO MONITOR AND REPORT TO ONCOMING RN.
--- NOTE | 2019-02-12 18:04 | NUR ---
SUMMARY PT AWAKE WATCHING TV AND EATING HER DINNER, PT HAS BEEN MED ONCE PER EMAR FOR PAIN, HAS BEEN PLEASANT AND COOPERATIVE WITH CARE, FAMILY HAS BEEN IN TO VISIT, VSS, NO ACUTE CHANGES, WILL CONT TO MONITOR
--- NOTE | 2019-02-13 05:12 | NUR ---
SHIFT SUMMARY PT HAS RESTED OFF AND ON T/O THE NIGHT. SHE HAS HAD MORE PAIN THIS SHIFT. MEDICATED PER ORDERS. IV ABX INFUSED. PT A/OX4, CALLS APPROPRIATELY. MAKES NEEDS KNOWN. USES BED [place] WITH THE HELP OF 1 PA, ABLE TO TURN AND ROLL IN BED INDEPNDENTLY. DRESSING REMAINS INTACT TO LEFT FOOT. PLAN IS FOR CONSULT WITH VASCULAR SURGEON TODAY. NO CHANGES TO REPORT. WILL CONTINUE TO MONITOR AND REPORT TO ONCOMING RN.
--- NOTE | 2019-02-13 19:14 | NUR ---
SHIFT SUMMARY: NO ACUTE CHANGES TO REPORT THIS SHIFT. PT A&O; CALM AND COOPERATIVE WITH CARE. PT HX R BKA; PVD; WHEELCHAIR BOUND AT BASELINE. ULCER TO L FOOT; DRESSING C/D/I; AWAITING CONSULT FROM DR ZEPEDA R/T POSSIBLE REVASCULARIZATION. IV ABX CONTINUING. REPORT GIVEN TO ONCOMING RN.
--- NOTE | 2019-02-14 04:39 | NUR ---
SHIFT SUMMARY NO ACUTE CHANGES TO PRESENT. PT PLEASANT AND CO-OP. ADMITTED FOR DIABETIC FOOT ULCER. IN CONTACT ISO FOR MRSA IN THE WOUND. R BKA, W/C BOUND AT BASELINE. CONSULT FOR DR ZEPEDA TO ASSESS REVASCULARIZATION OF L FOOT. IV ABX ADMIN. PT REQUESTED PAIN MED X1 ONLY FOR L KNEE PAIN. ABLE TO USE BEDPAN IN BED. CALL LT IN REACH.
--- NOTE | 2019-02-14 17:14 | NUR ---
TRANSFER NOTE;POST PERPHERAL ANGIO: Pt arrived [facility] from [facility]. Pt dozing. VSS. Pt laying flat with R groin site with Mynx closure and Chary patch. Small amount of bloody drainage on chary patch. L Pedal site with chary patch intact. Pulses palp. Other VSS. CBG 195. Will treat per orders. Call light in reach.
--- NOTE | 2019-02-14 18:38 | NUR ---
SHIFT SUMMARY: Pt arrived to room PCU 9 at around 1700. Pt was very drowsy and was dozing at the time of arrival to unit. Opened eyes and noded when told she was in PCU. Pt dozed for an hour then started to wake up. Pt very confused, trying to roll over. States she is at home, yelling for family memebers. Pt has no recollection of coming into hospital or of aggreeing to a procedure. Pt very difficult to reorient. Continues to argue and attempt to move around even after being told not to and why. RN to stay in room while pt is very confused. Pt saying that she is in a lot of pain. Medicated with percocet. VSS. Will report to night RN.
--- NOTE | 2019-02-14 19:43 | NUR ---
REPORT FROM RN . REVIEWED RT GROIN TOGETHER. BENEATH SEEP OF SEROSANGUINOUS 2X2 AT RT GROIN. OCCLUSIVE DSG INTACT AND NO DRAINAGE LEAKING OUT. A SLIGHT FIRMNESS AT MODERATE PALPATION. NO EVIDENCE OF HEMATOMA AND MADE AWARE OF TYPE OF CLOSURE.BKA COVER OVER STUMP , FOR NOW. MILD SNORE AND NO SLEEP APNEA NOTED,.SAT 95% 2L . MOAN WITH VERBAL STIMULUS. VS WNL.2X2 DSG ON LT POST TIBIAL AREA W/ SM AMT RESIDUAL DRAINAGE. NO SEEPING FRESH DRAINAGE. OCCLUSIVE DSG INTACT. FAINT PULSE NOTED THRU LIGHT DSG. FAINT DP PULSE. DSG OVER LT GREAT TOE. HOB FLAT. NO VOID IN ATTENDS. LT LEG WARM AND WNL COLOR.WIGGLES TOES AND PLANTAR FLEXION AND EXTENTION TO COMMAND.
--- NOTE | 2019-02-15 01:00 | NUR ---
AFTER BEING COMPLETELY AWAKE / ORIENTED AND FEEDING SELF/ WATCHING TV. TALING ON PHONE W/ FAMILY ALL EVENING SINCE VERY AWAKE AT 2100, SHE NOW IS VERY LETHARGIC AND DIFFICULT TO AROUSE. CIRC CHECK PER INTERVENTION SITES WNL. VOIDING INCONTINENT IN BED. NOT ASSISTING IN TURNING. YELLING AT STAFF WHEN ANNOYED AT CONSTANT AROUSAL. REFUSES TO GIVE NAME AND . AND SWINGS ARMS AT STAFF. ALL ROUTINE NOC MEDS HAVE BEEN GIVEN AT ABOUT 2200 . AND THIS IS HER PRESENTATION SINCE. NO PAIN MEDS WERE GIVEN SINCE 1744. NEURO CHECK WNL BOY 01/29.
--- NOTE | 2019-02-15 06:35 | NUR ---
JUST STARTING TO WAKE UP A LITTLE MORE NOW. HALLUCINATING AND TALKING TO PEOPLE NOT THERE. GERENAL ACHES AND PAINS REPORTED AND NOTHING SPECIFIC. DOES NOT KNOW SHE HAS HAS A PROCEDURE AND NO REPORT OF PAIN AT GROIN . TRIED TO GET OUT OF BED AND BED ALARM ALERT. ASKED FOR BED WASHINGTON BY 0400 AFTER TRYING TO GET OUT OF BED FIRST. CONT TO BE REORIENTED. AND CLEARING A LITTLE W/ MANY REMINDERS. HELD AM PO MED W/ LETHARGY. NO CHANGE IN CIRC CHECK.
[2019-02-15 08:35] LABS: BASOPHILS ABSOLUTE AUTO 0.05 K/mm3 (0.00-0.23); BASOPHILS PERCENT AUTO 0 % (0-2); EOSINOPHILS ABSOLUTE AUTO 0.22 K/mm3 (0.00-0.68); EOSINOPHILS PERCENT AUTO 2 % (0-6); Hematocrit 32.4 % (33.0-51.0); Hemoglobin 10.2 g/dL (11.5-16.0); IMMATURE GRAN ABSOLUTE AUTO 0.11 K/mm3 (0.00-0.10); IMMATURE GRAN PERCENT AUTO 1 % (0-1); LYMPHOCYTES ABSOLUTE AUTO 2.28 K/mm3 (0.84-5.20); LYMPHOCYTES PERCENT AUTO 18 % (21-46); MONOCYTES ABSOLUTE AUTO 0.87 K/mm3 (0.16-1.47); MONOCYTES PERCENT AUTO 7 % (4-13); Mean Corpuscular HGB 30.2 pg (26.0-34.0); Mean Corpuscular HGB Conc 31.5 g/dL (31.5-36.5); Mean Corpuscular Volume 96 fL (80-100); NEUTROPHILS ABSOLUTE AUTO 9.39 K/mm3 (1.96-9.15); NEUTROPHILS PERCENT AUTO 73 % (41-73); Platelet Count 306 K/mm3 (150-400); RDW Coefficient Variation 14.2 % (11.7-14.2); RDW Standard Deviation 49.9 fL (35.1-46.3); Red Blood Cell Count 3.38 M/mm3 (3.80-5.20); White Blood Cell Count 12.92 K/mm3 (4.00-11.30)
[2019-02-15 08:49] LABS: Albumin, Blood 2.2 g/dL (3.4-5.0); Anion Gap 6 mmol/L (6-16); Blood Urea Nitrogen 33 mg/dL (8-24); Bun/Creatinine Ratio 38.4 (12.0-20.0); CO2, Blood 29 mmol/L (21-32); Calcium, Blood 8.8 mg/dL (8.5-10.1); Chloride, Blood 104 mmol/L (98-108); Creatinine, Blood 0.86 mg/dL (0.40-1.00); Glomerular Filtration Rate >60 (60-); Glucose, Blood 191 mg/dL (70-99); Phosphorus, Blood 2.8 mg/dL (2.5-4.9); Potassium, Blood 4.4 mmol/L (3.5-5.5); Sodium, Blood 139 mmol/L (136-145)
--- NOTE | 2019-02-15 13:14 | NUR ---
SHIFT SUMMARY ASSUMED CARE AT 0700. AT SHIFT CHANGE, PT PRESENTED CONFUSION AND LETHARGY. AT PRESENT 1326 PT IS ORIENTED TO PERSON, PLACE, TIME, EVENT AND IS ALERT. FAMILY AT BEDSIDE. VSS THIS SHIFT. ULCER TO L FOOT; DRESSING C/D/I. L PEDAL PULSE PRESENT. R GROIN SITE SOFT AND TAGADERM DRESSING C/D/I WITH NOTED GAUZE UNDER DRESSING CONTAINING OLD BLOODY OOZE. NO HEMATOMA PRESENT. LANTUS DOSE INCREASED FROM 45 UNITS BID TO [address] WONG CONSULTED FOR FOOT ULCER EVAL. THIS RN LEFT MESSAGE ON DR. WONG CELL AT 1300 INFORMING HIM OF CONSULT. AWAITING CALL BACK. ABX CONTINUING. NO ACUTE CHANGES THIS SHIFT. PT CALM AND COOPERATIVE.
--- NOTE | 2019-02-15 18:04 | NUR ---
CLOSING NOTE: PT REMAINS ALERT AND ORIENTED THROUGHOUT THE AFTERNOON. VSS. PT COMPLAINT OF RLE PAIN AT STUMP, ULTRAM 50 MG ORDERED, AWAITING PHARM VERIFICATION. L FOOT ULCER DRESSING C/D/I, SCATTERED SCABS ON LLE REMAINED INTACT THROUGHOUT SHIFT. NO HEMATOMA PRESENT ON R GROIN SITE. DR. WONG CONSULTED FOR L FOOT ULCER EVALUATION. WILL SEE PT TONIGHT 02/15. ABX TX CONTINUED. FAMILY VISITED THIS AFTERNOON, UPDATE GIVEN. GAVE PRN DOCUSATE AT 1600 FOR BOWEL CARE. LAST DOCUMENTED BM WAS 02/07 - BOWELS ARE ACTIVE IN ALL 4 QUADRANTS, NO PT REPORT OF STOMACH PAIN, NO RIGIDITY UPON ASSESSMENT, PT PASSING GAS THROUGHOUT THE DAY.
[2019-02-16 04:05] LABS: BASOPHILS ABSOLUTE AUTO 0.05 K/mm3 (0.00-0.23); BASOPHILS PERCENT AUTO 0 % (0-2); EOSINOPHILS ABSOLUTE AUTO 0.35 K/mm3 (0.00-0.68); EOSINOPHILS PERCENT AUTO 3 % (0-6); Hematocrit 32.3 % (33.0-51.0); Hemoglobin 10.1 g/dL (11.5-16.0); IMMATURE GRAN ABSOLUTE AUTO 0.13 K/mm3 (0.00-0.10); IMMATURE GRAN PERCENT AUTO 1 % (0-1); LYMPHOCYTES ABSOLUTE AUTO 3.05 K/mm3 (0.84-5.20); LYMPHOCYTES PERCENT AUTO 22 % (21-46); MONOCYTES ABSOLUTE AUTO 1.15 K/mm3 (0.16-1.47); MONOCYTES PERCENT AUTO 8 % (4-13); Mean Corpuscular HGB 30.1 pg (26.0-34.0); Mean Corpuscular HGB Conc 31.3 g/dL (31.5-36.5); Mean Corpuscular Volume 96 fL (80-100); Mean Platelet Volume 10.3 fL (9.1-12.4); NEUTROPHILS ABSOLUTE AUTO 8.94 K/mm3 (1.96-9.15); NEUTROPHILS PERCENT AUTO 65 % (41-73); Platelet Count 280 K/mm3 (150-400); RDW Coefficient Variation 14.3 % (11.7-14.2); RDW Standard Deviation 50.4 fL (35.1-46.3); Red Blood Cell Count 3.35 M/mm3 (3.80-5.20); White Blood Cell Count 13.67 K/mm3 (4.00-11.30)
[2019-02-16 04:19] LABS: Albumin, Blood 2.2 g/dL (3.4-5.0); Anion Gap 7 mmol/L (6-16); Blood Urea Nitrogen 27 mg/dL (8-24); Bun/Creatinine Ratio 33.9 (12.0-20.0); CO2, Blood 27 mmol/L (21-32); Calcium, Blood 8.8 mg/dL (8.5-10.1); Chloride, Blood 104 mmol/L (98-108); Glomerular Filtration Rate >60 (60-); Glucose, Blood 116 mg/dL (70-99); Phosphorus, Blood 2.8 mg/dL (2.5-4.9); Potassium, Blood 4.5 mmol/L (3.5-5.5); Sodium, Blood 138 mmol/L (136-145)
--- NOTE | 2019-02-16 06:44 | NUR ---
SHIFT SUMMARY: PATIENT REMAINED ORIENTED THIS SHIFT, USING THE BEDPAN AND ABLE TO TURN HERSELF. PATEINT DRESSINGS CHANGED PER MD ORDER, DUE AGAIN IN 2-3 DAYS. PATIENT COOPERATIVE AND VSS, CALL LIGHT WITHIN REACH, BED LOW AND LOCKED WITH ALARM ON.
--- NOTE | 2019-02-16 19:19 | NUR ---
SHIFT SUMMARY PT ALERT AND ORIENTED. VS STABLE THROUGHOUT SHIFT. PT DENIES ANY PAIN. PT ABLE TO REPOSITION SELF IN BED WITH MINIMAL ASSISTANCE. PT ABLE TO USE BED W[place] TO VOID. DRESSINGS TO LLE INTACT. NO CHANGES SINCE INITIAL ASSESSMENT. REPORT GIVEN TO NICOLAS GASPAR.
[2019-02-17 06:12] LABS: BASOPHILS ABSOLUTE AUTO 0.05 K/mm3 (0.00-0.23); BASOPHILS PERCENT AUTO 0 % (0-2); EOSINOPHILS ABSOLUTE AUTO 0.43 K/mm3 (0.00-0.68); EOSINOPHILS PERCENT AUTO 3 % (0-6); Hematocrit 31.2 % (33.0-51.0); Hemoglobin 9.8 g/dL (11.5-16.0); IMMATURE GRAN ABSOLUTE AUTO 0.16 K/mm3 (0.00-0.10); IMMATURE GRAN PERCENT AUTO 1 % (0-1); LYMPHOCYTES ABSOLUTE AUTO 3.07 K/mm3 (0.84-5.20); LYMPHOCYTES PERCENT AUTO 24 % (21-46); MONOCYTES PERCENT AUTO 8 % (4-13); Mean Corpuscular HGB 29.4 pg (26.0-34.0); Mean Corpuscular HGB Conc 31.4 g/dL (31.5-36.5); Mean Corpuscular Volume 94 fL (80-100); Mean Platelet Volume 10.5 fL (9.1-12.4); NEUTROPHILS ABSOLUTE AUTO 8.28 K/mm3 (1.96-9.15); NEUTROPHILS PERCENT AUTO 64 % (41-73); Platelet Count 271 K/mm3 (150-400); RDW Coefficient Variation 14.5 % (11.7-14.2); RDW Standard Deviation 49.3 fL (35.1-46.3); Red Blood Cell Count 3.33 M/mm3 (3.80-5.20); White Blood Cell Count 12.99 K/mm3 (4.00-11.30)
[2019-02-17 06:35] LABS: Albumin, Blood 2.1 g/dL (3.4-5.0); Anion Gap 5 mmol/L (6-16); Blood Urea Nitrogen 33 mg/dL (8-24); Bun/Creatinine Ratio 28.9 (12.0-20.0); CO2, Blood 30 mmol/L (21-32); Calcium, Blood 8.7 mg/dL (8.5-10.1); Chloride, Blood 102 mmol/L (98-108); Creatinine, Blood 1.14 mg/dL (0.40-1.00); Glomerular Filtration Rate 51 (60-); Glucose, Blood 162 mg/dL (70-99); Phosphorus, Blood 3.6 mg/dL (2.5-4.9); Potassium, Blood 4.3 mmol/L (3.5-5.5); Sodium, Blood 137 mmol/L (136-145)
--- NOTE | 2019-02-17 08:00 | NUR ---
pt laying in bed a bit disoriented this am, was easy to reorient. she knew she was confused. lungs are clear in upper, dim in bases, resp even and unlabored, currently on 2 liters 02 via n/c, no cough noted, hrr, tele in place running sr per monitor, see strip, has rbka, stump has a dressing in place, left foot has dressings that were changed last night, has red rash to periarea, moves upper ext well, useing bedpan to void, call light in reach.
--- NOTE | 2019-02-17 14:03 | NUR ---
report has been given to Julian GASPAR, pt was transferedt to medical via bed with nurse in attendence. pt has all belongings.
--- NOTE | 2019-02-17 19:44 | NUR ---
PT ARRIVED TO THE MEDICAL FLOOR FROM THE PCU TODAY AROUND 1400,A/OX3 PLEASANT AND COOPERATIVE, THE PT WAS ORIENTED TO THE ROOM LAYOUT AND CALL SYSTEM , THE PTS LEFT FOOT DRESSING WAS CHANGED USEING A CLEAN TECHNIQUE, THE PT TOLERATED IT WELL, THE PT APPEARED TO BE BREATHING EASILY AT REST ON O2 @ 2L/MIN, THE CALL LIGHT IS IN REACH, WILL CONTINUE TO MONITOR AND ASSESS FOR CHANGES
--- NOTE | 2019-02-18 03:44 | NUR ---
SHIFT SUMMARY PATIENT HAD NO ACUTE CHANGES OBSERVED THIS SHIFT. AXOX 3 AND BEDFAST, W/C BOUND AT HOME PER PATIENT. RIGHT AKA. PATIENT REPORTED RLL STUMP PAIN AND RECEIVED ULTRAM 50 MG PER EMAR. VSS/AFEBRILE. ON 2L O2 NC BASELINE. CBG 298. POWERGLIDE YONY INTACT. WATCHED TV FOR HALF THE SHIFT. LEFT FOOT DRESSING C/D/I. CALL LIGHT IN REACH. BED IN LOWEST POSITION. WILL CONTINUE TO MONITOR UNTIL DAY SHIFT NURSE ASSUMES CARE.
[2019-02-18 05:49] LABS: BASOPHILS ABSOLUTE AUTO 0.06 K/mm3 (0.00-0.23); BASOPHILS PERCENT AUTO 1 % (0-2); EOSINOPHILS ABSOLUTE AUTO 0.37 K/mm3 (0.00-0.68); EOSINOPHILS PERCENT AUTO 3 % (0-6); Hematocrit 30.2 % (33.0-51.0); Hemoglobin 9.6 g/dL (11.5-16.0); IMMATURE GRAN ABSOLUTE AUTO 0.19 K/mm3 (0.00-0.10); IMMATURE GRAN PERCENT AUTO 2 % (0-1); LYMPHOCYTES ABSOLUTE AUTO 2.61 K/mm3 (0.84-5.20); LYMPHOCYTES PERCENT AUTO 21 % (21-46); MONOCYTES ABSOLUTE AUTO 0.99 K/mm3 (0.16-1.47); MONOCYTES PERCENT AUTO 8 % (4-13); Mean Corpuscular HGB 29.9 pg (26.0-34.0); Mean Corpuscular HGB Conc 31.8 g/dL (31.5-36.5); Mean Corpuscular Volume 94 fL (80-100); Mean Platelet Volume 10.7 fL (9.1-12.4); NEUTROPHILS ABSOLUTE AUTO 8.17 K/mm3 (1.96-9.15); NEUTROPHILS PERCENT AUTO 66 % (41-73); Platelet Count 263 K/mm3 (150-400); RDW Coefficient Variation 14.4 % (11.7-14.2); RDW Standard Deviation 49.6 fL (35.1-46.3); Red Blood Cell Count 3.21 M/mm3 (3.80-5.20); White Blood Cell Count 12.39 K/mm3 (4.00-11.30)
--- NOTE | 2019-02-18 19:27 | NUR ---
SHIFT SUMMARY NO ACUTE CHANGES. PATIENT DENIED PAIN, NAUSEA, AND SHORTNESS OF BREATH. FAMILY AT BEDSIDE. PATIENT BANDAGES CLEAN, DRY, AND INTACT. REPORT GIVEN TO MARIE GASPAR.
--- NOTE | 2019-02-19 03:51 | NUR ---
SHIFT SUMMARY PATIENT HAD NO ACUTE CHANGES OBSERVED THIS SHIFT. AXO X4 AND BEDFAST. R AKA. LEFT FOOT DRESSING C/D/I. W/C BOUND AT HOME PATIENT REPORTS. DENIES PAIN, SOB, AND N/V. VSS/AFEBRILE. POWERGLIDE YONY INTACT. CBG 244. ON 2L O2 NC BASELINE. IV ABX INFUSED. CALL LIGHT IN REACH. BED IN LOWEST POSITION. WILL CONITINUE TO MONITOR UNTIL DAY SHIFT NURSE ASSUMES CARE.
[2019-02-19 05:59] LABS: BASOPHILS ABSOLUTE AUTO 0.06 K/mm3 (0.00-0.23); BASOPHILS PERCENT AUTO 0 % (0-2); EOSINOPHILS ABSOLUTE AUTO 0.44 K/mm3 (0.00-0.68); EOSINOPHILS PERCENT AUTO 3 % (0-6); Hematocrit 32.6 % (33.0-51.0); Hemoglobin 10.1 g/dL (11.5-16.0); IMMATURE GRAN ABSOLUTE AUTO 0.16 K/mm3 (0.00-0.10); IMMATURE GRAN PERCENT AUTO 1 % (0-1); LYMPHOCYTES ABSOLUTE AUTO 3.24 K/mm3 (0.84-5.20); LYMPHOCYTES PERCENT AUTO 23 % (21-46); MONOCYTES ABSOLUTE AUTO 1.09 K/mm3 (0.16-1.47); MONOCYTES PERCENT AUTO 8 % (4-13); Mean Corpuscular HGB 29.7 pg (26.0-34.0); Mean Corpuscular Volume 96 fL (80-100); Mean Platelet Volume 10.8 fL (9.1-12.4); NEUTROPHILS ABSOLUTE AUTO 9.03 K/mm3 (1.96-9.15); NEUTROPHILS PERCENT AUTO 65 % (41-73); Platelet Count 267 K/mm3 (150-400); RDW Coefficient Variation 14.3 % (11.7-14.2); RDW Standard Deviation 50.2 fL (35.1-46.3); White Blood Cell Count 14.02 K/mm3 (4.00-11.30)
--- NOTE | 2019-02-19 18:32 | NUR ---
PT DISCHARGE HELD BY DR OCONNELL DUE TO ELEVATED WBC LEVEL AND TACHYCARDIA. NO ACUTE CHANGES NOTED THIS SHIFT. WILL CONTINUE TO MONITOR AND REPORT TO ONCOMING RN
--- NOTE | 2019-02-20 03:37 | NUR ---
SHIFT SUMMARY PATIENT HAD NO ACUTE CHANGES OBSERVED THIS SHIFT. AXOX 3 AND BEDFAST. W/C BOUND BASELINE. R AKA AND L FOOT DRESSING C/D/I. DENIES PAIN, SOB, AND N/V. PIV REMAINS INTACT. CBG 196. ON 2L O2 NC BASELINE. USES BARIATRIC BEDPAN. VSS/FEBRILE. IV ABX INFUSED. CALL LIGHT IN REACH. BED IN LOWEST POSITION. WILL CONTINUE TO MONITOR UNTIL DAY SHIFT NURSE ASSUMES CARE.
[2019-02-20 04:59] LABS: BASOPHILS ABSOLUTE AUTO 0.06 K/mm3 (0.00-0.23); BASOPHILS PERCENT AUTO 1 % (0-2); EOSINOPHILS ABSOLUTE AUTO 0.46 K/mm3 (0.00-0.68); EOSINOPHILS PERCENT AUTO 4 % (0-6); Hematocrit 32.3 % (33.0-51.0); Hemoglobin 10.2 g/dL (11.5-16.0); IMMATURE GRAN ABSOLUTE AUTO 0.11 K/mm3 (0.00-0.10); IMMATURE GRAN PERCENT AUTO 1 % (0-1); LYMPHOCYTES ABSOLUTE AUTO 2.68 K/mm3 (0.84-5.20); LYMPHOCYTES PERCENT AUTO 23 % (21-46); MONOCYTES PERCENT AUTO 8 % (4-13); Mean Corpuscular HGB 29.6 pg (26.0-34.0); Mean Corpuscular HGB Conc 31.6 g/dL (31.5-36.5); Mean Corpuscular Volume 94 fL (80-100); Mean Platelet Volume 10.6 fL (9.1-12.4); NEUTROPHILS ABSOLUTE AUTO 7.67 K/mm3 (1.96-9.15); NEUTROPHILS PERCENT AUTO 65 % (41-73); Platelet Count 256 K/mm3 (150-400); RDW Coefficient Variation 14.2 % (11.7-14.2); RDW Standard Deviation 48.3 fL (35.1-46.3); Red Blood Cell Count 3.45 M/mm3 (3.80-5.20); White Blood Cell Count 11.88 K/mm3 (4.00-11.30)
[2019-02-20] MEDS ORDERED: SANTYL30 GM TOP (15:34)
[2019-02-20] MEDS ORDERED: CEPH500 PO (15:35)
[2019-02-20] MEDS ORDERED: TRAM50 PO (15:35)
--- NOTE | 2019-02-20 16:16 | NUR ---
PATIENT D/C'D TO HOME WITH FAMILY. D/C INSTRUCTIONS AND EDUCATION DISCUSSED WITH PATIENT AND COPY PROVIDED. RX MEDICATIONS FAXED TO [facility] AND HARD SCRIPT FOR TRAMADOL GIVEN TO PATIENT. PATIENT DENIES ANY FURTHER QUESTIONS OR CONCERNS.
== END 2019-02-20 16:15 | disposition home or self-care (01) | DRG 628 ==
LOC: ER 12:11 → MEDS 15:18 → PCU 02-14 16:14 → MEDS 02-17 14:10
PROVIDERS: Family Medicine; Internal Medicine; Physician Assistant; ADMIT Internal Medicine
PROC: 04CL3ZZ Extirpation of Matter from Left Femoral Artery, Percutaneous Approach (ICD-10-PCS; principal; 2019-02-14)
PROC: 047N3ZZ Dilation of Left Popliteal Artery, Percutaneous Approach (ICD-10-PCS; 2019-02-14)
PROC: 047L3ZZ Dilation of Left Femoral Artery, Percutaneous Approach (ICD-10-PCS; 2019-02-14)
DX: E11.621 Type 2 diabetes mellitus with foot ulcer (principal); A41.9 Sepsis, unspecified organism; E11.52 Type 2 diabetes mellitus with diabetic peripheral angiopathy with gangrene; I96 Gangrene, not elsewhere classified; I70.262 Atherosclerosis of native arteries of extremities with gangrene, left leg; L03.116 Cellulitis of left lower limb; L97.529 Non-pressure chronic ulcer of other part of left foot with unspecified severity; E11.65 Type 2 diabetes mellitus with hyperglycemia; Z79.4 Long term (current) use of insulin; E11.43 Type 2 diabetes mellitus with diabetic autonomic (poly)neuropathy; K21.9 Gastro-esophageal reflux disease without esophagitis; E11.22 Type 2 diabetes mellitus with diabetic chronic kidney disease; I12.9 Hypertensive chronic kidney disease with stage 1 through stage 4 chronic kidney disease, or unspecified chronic kidney disease; N18.3 Chronic kidney disease, stage 3 (moderate); D63.1 Anemia in chronic kidney disease; F17.210 Nicotine dependence, cigarettes, uncomplicated; Z86.73 Personal history of transient ischemic attack (TIA), and cerebral infarction without residual deficits; Z89.511 Acquired absence of right leg below knee; E78.5 Hyperlipidemia, unspecified; I25.10 Atherosclerotic heart disease of native coronary artery without angina pectoris; J44.9 Chronic obstructive pulmonary disease, unspecified; L97.524 Non-pressure chronic ulcer of other part of left foot with necrosis of bone
CPT/HCPCS: 36415; 37184; 37185; 37186; 37224; 37228; 37232; 73620; 75625; 75716; 75774; 80048; 80069; 80202; 82947; 83605; 85025; 85027; 87040; 87070; 87077; 87205; 94762; 99152; 99153; 99284; C1725; C1751; C1757; C1760; C1769; C1887; C1894; C2623; J0692; J1200; J1644; J1650; J1720; J2250; J3010; J3370; J7030; J7050; J7120; Q9967

== ENCOUNTER 2019-03-24 22:01 | Emergency (ER) | payer MEDICARE, OTHER ==
[~2019-03-24] VITALS: Ht 165.1 cm; Wt 111.6 kg
[~2019-03-24 22:01] MED LIST changes: +CARV3.125 PO; +SANTYL30 GM TOP; +SPIR25 PO; +TRAM50 PO
== END 2019-03-25 00:45 | disposition left against medical advice (07) ==
LOC: ER 22:01
DX: Z53.21 Procedure and treatment not carried out due to patient leaving prior to being seen by health care provider (principal)
CPT/HCPCS: 73630; 99281-25

== ENCOUNTER 2019-04-05 12:00 | Day surgery (SDC) | payer MEDICARE, OTHER | END 2019-04-06 22:42 | disposition home or self-care (01) | LOC: WOUND 12:00 | DX: E11.621 Type 2 diabetes mellitus with foot ulcer (principal); E11.622 Type 2 diabetes mellitus with other skin ulcer; L97.322 Non-pressure chronic ulcer of left ankle with fat layer exposed; L97.522 Non-pressure chronic ulcer of other part of left foot with fat layer exposed; E11.51 Type 2 diabetes mellitus with diabetic peripheral angiopathy without gangrene; E11.40 Type 2 diabetes mellitus with diabetic neuropathy, unspecified; I87.2 Venous insufficiency (chronic) (peripheral); E11.22 Type 2 diabetes mellitus with diabetic chronic kidney disease; I13.2 Hypertensive heart and chronic kidney disease with heart failure and with stage 5 chronic kidney disease, or end stage renal disease; N18.6 End stage renal disease; I50.9 Heart failure, unspecified; I25.10 Atherosclerotic heart disease of native coronary artery without angina pectoris; I25.2 Old myocardial infarction; J44.9 Chronic obstructive pulmonary disease, unspecified; E78.5 Hyperlipidemia, unspecified; G47.30 Sleep apnea, unspecified; Z79.01 Long term (current) use of anticoagulants; Z86.73 Personal history of transient ischemic attack (TIA), and cerebral infarction without residual deficits | CPT/HCPCS: 87070; 87077; 87147; 87186; 87205; G0463 ==

== ENCOUNTER 2019-04-12 00:09 | Day surgery (SDC) | payer MEDICARE, OTHER | END 2019-04-12 22:41 | disposition home or self-care (01) | LOC: WOUND 00:09 | DX: E11.621 Type 2 diabetes mellitus with foot ulcer (principal); E11.622 Type 2 diabetes mellitus with other skin ulcer; L97.523 Non-pressure chronic ulcer of other part of left foot with necrosis of muscle; L97.323 Non-pressure chronic ulcer of left ankle with necrosis of muscle; L97.822 Non-pressure chronic ulcer of other part of left lower leg with fat layer exposed; I87.2 Venous insufficiency (chronic) (peripheral); E11.51 Type 2 diabetes mellitus with diabetic peripheral angiopathy without gangrene; E11.42 Type 2 diabetes mellitus with diabetic polyneuropathy; I13.2 Hypertensive heart and chronic kidney disease with heart failure and with stage 5 chronic kidney disease, or end stage renal disease; E11.22 Type 2 diabetes mellitus with diabetic chronic kidney disease; I50.9 Heart failure, unspecified; N18.6 End stage renal disease; I25.10 Atherosclerotic heart disease of native coronary artery without angina pectoris; E78.5 Hyperlipidemia, unspecified; J44.9 Chronic obstructive pulmonary disease, unspecified; G47.30 Sleep apnea, unspecified; Z86.73 Personal history of transient ischemic attack (TIA), and cerebral infarction without residual deficits ==

== ENCOUNTER 2019-04-19 13:31 | Day surgery (SDC) | payer MEDICARE, OTHER | END 2019-04-19 22:47 | disposition home or self-care (01) | LOC: WOUND 13:31 | DX: E11.622 Type 2 diabetes mellitus with other skin ulcer (principal); L97.322 Non-pressure chronic ulcer of left ankle with fat layer exposed; L97.829 Non-pressure chronic ulcer of other part of left lower leg with unspecified severity; E11.621 Type 2 diabetes mellitus with foot ulcer; L97.522 Non-pressure chronic ulcer of other part of left foot with fat layer exposed; E11.51 Type 2 diabetes mellitus with diabetic peripheral angiopathy without gangrene; E11.22 Type 2 diabetes mellitus with diabetic chronic kidney disease; I13.2 Hypertensive heart and chronic kidney disease with heart failure and with stage 5 chronic kidney disease, or end stage renal disease; I50.9 Heart failure, unspecified; N18.6 End stage renal disease; I87.2 Venous insufficiency (chronic) (peripheral); E11.42 Type 2 diabetes mellitus with diabetic polyneuropathy; E11.65 Type 2 diabetes mellitus with hyperglycemia; E78.5 Hyperlipidemia, unspecified; J44.9 Chronic obstructive pulmonary disease, unspecified ==

== ENCOUNTER 2019-04-26 13:30 | Day surgery (SDC) | payer MEDICARE, OTHER ==
[~2019-04-26 13:30] MED LIST changes: -Aspirin EC81 MG PO; +Humalog100 UNIT/1 SC; -INSLI100I SC; +LO-DOSE ASPIRIN81 MG PO
[2019-04-26] MEDS ORDERED: METO2.5 PO (17:17)
[2019-04-26] MEDS ORDERED: POTASSIUM CHLO20 MEQ PO (17:18)
[2019-04-26] MEDS ORDERED: FURO80 PO ×2 (17:19→18:37)
[2019-04-26] MEDS ORDERED: GABA600 PO (17:20)
[2019-04-26] MEDS ORDERED: KETOROLAC TROMET5 ML RIGHTEYE (18:46)
[2019-04-27] MEDS ORDERED: FURO80 PO (18:51)
[2019-05-03] MEDS ORDERED: GABA100 PO (12:47)
== END 2019-04-26 22:49 | disposition home or self-care (01) ==
LOC: WOUND 13:30
DX: E11.622 Type 2 diabetes mellitus with other skin ulcer (principal); E11.621 Type 2 diabetes mellitus with foot ulcer; L97.322 Non-pressure chronic ulcer of left ankle with fat layer exposed; L97.522 Non-pressure chronic ulcer of other part of left foot with fat layer exposed; L97.822 Non-pressure chronic ulcer of other part of left lower leg with fat layer exposed; E11.42 Type 2 diabetes mellitus with diabetic polyneuropathy; E11.51 Type 2 diabetes mellitus with diabetic peripheral angiopathy without gangrene; I87.2 Venous insufficiency (chronic) (peripheral); I13.2 Hypertensive heart and chronic kidney disease with heart failure and with stage 5 chronic kidney disease, or end stage renal disease; E11.22 Type 2 diabetes mellitus with diabetic chronic kidney disease; N18.6 End stage renal disease; I50.9 Heart failure, unspecified; I25.10 Atherosclerotic heart disease of native coronary artery without angina pectoris; I25.2 Old myocardial infarction; E78.5 Hyperlipidemia, unspecified; J44.9 Chronic obstructive pulmonary disease, unspecified; G47.30 Sleep apnea, unspecified; Z86.73 Personal history of transient ischemic attack (TIA), and cerebral infarction without residual deficits
CPT/HCPCS: G0463

== ENCOUNTER 2019-04-26 14:20 | Inpatient (IN) | payer MEDICARE, OTHER ==
[~2019-04-26] VITALS: Ht 162.6 cm; Wt 104.2 kg
[~2019-04-26 14:20] MED LIST changes: -GABA300 PO; -Humalog100 UNIT/1 SC; +Humalog100 UNIT/3 SC; -OMEPRAZOLE MAGN20 MG PO; +OMEPRAZOLE20 MG PO
[2019-04-26 15:39] LABS: BASOPHILS ABSOLUTE AUTO 0.05 K/mm3 (0.00-0.23); BASOPHILS PERCENT AUTO 0 % (0-2); EOSINOPHILS ABSOLUTE AUTO 0.19 K/mm3 (0.00-0.68); EOSINOPHILS PERCENT AUTO 1 % (0-6); Hematocrit 39.4 % (33.0-51.0); Hemoglobin 12.7 g/dL (11.5-16.0); IMMATURE GRAN ABSOLUTE AUTO 0.19 K/mm3 (0.00-0.10); IMMATURE GRAN PERCENT AUTO 1 % (0-1); LYMPHOCYTES ABSOLUTE AUTO 5.27 K/mm3 (0.84-5.20); LYMPHOCYTES PERCENT AUTO 27 % (21-46); MONOCYTES ABSOLUTE AUTO 0.99 K/mm3 (0.16-1.47); MONOCYTES PERCENT AUTO 5 % (4-13); Mean Corpuscular HGB 29.3 pg (26.0-34.0); Mean Corpuscular HGB Conc 32.2 g/dL (31.5-36.5); Mean Corpuscular Volume 91 fL (80-100); Mean Platelet Volume 10.5 fL (9.1-12.4); NEUTROPHILS ABSOLUTE AUTO 12.93 K/mm3 (1.96-9.15); NEUTROPHILS PERCENT AUTO 66 % (41-73); Platelet Count 426 K/mm3 (150-400); RDW Coefficient Variation 15.3 % (11.7-14.2); RDW Standard Deviation 50.4 fL (35.1-46.3); Red Blood Cell Count 4.34 M/mm3 (3.80-5.20); White Blood Cell Count 19.62 K/mm3 (4.00-11.30)
[2019-04-26 16:18] LABS: Alanine Aminotransfer (ALT/SGP 28 U/L (12-78); Albumin, Blood 2.4 g/dL (3.4-5.0); Albumin/Globulin Ratio 0.4 (0.8-1.8); Alk Phos 233 U/L (50-136); Anion Gap 9 mmol/L (6-16); Aspartate Aminotrans (AST/SGOT 42 U/L (12-37); Bilirubin, Total 0.4 mg/dL (0.1-1.0); Blood Urea Nitrogen 75 mg/dL (8-24); Bun/Creatinine Ratio 52.4 (12.0-20.0); CO2, Blood 35 mmol/L (21-32); Chloride, Blood 90 mmol/L (98-108); Creatinine, Blood 1.43 mg/dL (0.40-1.00); Globulin, Blood 6.6 g/dL (2.2-4.0); Glomerular Filtration Rate 40 (60-); Glucose, Blood 69 mg/dL (70-99); Potassium, Blood 3.1 mmol/L (3.5-5.5); Sodium, Blood 134 mmol/L (136-145); Troponin I <0.015 ng/mL (0.000-0.040)
[2019-04-26] MEDS ORDERED: METO2.5 PO (17:17)
[2019-04-26] MEDS ORDERED: POTASSIUM CHLO20 MEQ PO (17:18)
[2019-04-26] MEDS ORDERED: FURO80 PO (18:37)
[2019-04-26] MEDS ORDERED: KETOROLAC TROMET5 ML RIGHTEYE (18:46)
[2019-04-26 18:58] LABS: C-REACTIVE PROTEIN, EXT RANGE 8.73 mg/dL (0.000-0.300)
[2019-04-27 04:27] LABS: BASOPHILS ABSOLUTE AUTO 0.06 K/mm3 (0.00-0.23); BASOPHILS PERCENT AUTO 0 % (0-2); EOSINOPHILS ABSOLUTE AUTO 0.14 K/mm3 (0.00-0.68); EOSINOPHILS PERCENT AUTO 1 % (0-6); Hematocrit 34.3 % (33.0-51.0); Hemoglobin 10.9 g/dL (11.5-16.0); IMMATURE GRAN ABSOLUTE AUTO 0.13 K/mm3 (0.00-0.10); IMMATURE GRAN PERCENT AUTO 1 % (0-1); LYMPHOCYTES ABSOLUTE AUTO 3.95 K/mm3 (0.84-5.20); LYMPHOCYTES PERCENT AUTO 22 % (21-46); MONOCYTES ABSOLUTE AUTO 1.15 K/mm3 (0.16-1.47); MONOCYTES PERCENT AUTO 7 % (4-13); Mean Corpuscular HGB 29.3 pg (26.0-34.0); Mean Corpuscular HGB Conc 31.8 g/dL (31.5-36.5); Mean Corpuscular Volume 92 fL (80-100); Mean Platelet Volume 10.4 fL (9.1-12.4); NEUTROPHILS ABSOLUTE AUTO 12.31 K/mm3 (1.96-9.15); NEUTROPHILS PERCENT AUTO 69 % (41-73); Platelet Count 367 K/mm3 (150-400); RDW Coefficient Variation 15.3 % (11.7-14.2); RDW Standard Deviation 52.2 fL (35.1-46.3); Red Blood Cell Count 3.72 M/mm3 (3.80-5.20); White Blood Cell Count 17.74 K/mm3 (4.00-11.30)
--- NOTE | 2019-04-27 04:38 | NUR ---
SHIFT SUMMARY: PATIENT ARRIVED TO [facility] AT APPROX 2030 VIA GURNEY FROM ED, ALERT AND ORIENTED BUT UNABLE TO AMBULATE. PATIENT HAS R BKA AND ULCERATIONS OF LEFT LEG. PATIENT ADMITTED, ORIENTED TO ROOM, CALL LIGHT AND HOSPITAL POLICIES. WOUND CARE REECORDED AND COMPLETED, NEURO CHECKS REMAIN UNCHANGED (SEE CHART)...LEFT EYE PUPIL LARGER THAN LEFT AND APPEARS TO BE FIXED, WEAKNESS APPEARS TO BE EQUAL ON BOTH SIDES AT THIS TIME. VSS, CALL LIGHT WITHIN REACH, BED LOW AND LOCKED WITH EXIT ALARM ON.
[2019-04-27 04:48] LABS: Alanine Aminotransfer (ALT/SGP 20 U/L (12-78); Albumin, Blood 1.9 g/dL (3.4-5.0); Albumin/Globulin Ratio 0.4 (0.8-1.8); Alk Phos 200 U/L (50-136); Anion Gap 7 mmol/L (6-16); Aspartate Aminotrans (AST/SGOT 31 U/L (12-37); Bilirubin, Direct <0.1 mg/dL (0.0-0.3); Bilirubin, Indirect Unable to Calculate mg/dL (0.1-0.7); Bilirubin, Total 0.3 mg/dL (0.1-1.0); Blood Urea Nitrogen 71 mg/dL (8-24); Bun/Creatinine Ratio 54.6 (12.0-20.0); CO2, Blood 35 mmol/L (21-32); Calcium, Blood 8.8 mg/dL (8.5-10.1); Chloride, Blood 97 mmol/L (98-108); Globulin, Blood 5.2 g/dL (2.2-4.0); Glomerular Filtration Rate 44 (60-); Glucose, Blood 51 mg/dL (70-99); Potassium, Blood 3.4 mmol/L (3.5-5.5); Sodium, Blood 139 mmol/L (136-145); Total Protein, Blood 7.1 g/dL (6.4-8.2)
--- NOTE | 2019-04-27 07:44 | NUR ---
DAY SHIFT NOTE: PT SITTING ON THE SIDE OF THE BED. RT IN ROOM EDUCATING PT ON RESPIRATORY CARE AT HOME. PT ALERT AND ORIENTED. PT HAS SHALLOW, RAPID BREATHING W/O DYSPNEA, LUNG SOUNDS CRACKLES THROUGHOUT, PT RECEIVING BREATHING TREATMENT PER RT. HEART SOUNDS REGULAR, SR BBB, BP ELEVATED; PT STATES THEY ARE ANXIOUS. LOWER PERIPHERAL PULSES WEAK, R LOWER EXTREMITY COOL, BANDAGE ON SECOND TOE. BOWEL TONES HYPERACTIVE. PT STATES READINESS FOR DISCHARGE. WILL CONTINUE TO MONITOR, CALL LIGHT IN REACH, BED IN LOWEST POSITION.
--- NOTE | 2019-04-27 10:49 | NUR ---
DAYSHIFT NOTE: ASSUMED CARE OF PT AT 0700. PT LYING IN BED AWAKE. PT ALERT AND ORIENTED, COMPLAINS OF FEELING HYPOGLYCEMIC, BS EVALUATED AND BREAKFAST GIVEN. PT STATES FEELING BETTER. LUNG SOUNDS CRACKLES AT BASES, ON 3L O2, DENIES DYSPNEA/SOB. HEART SOUNDS REGULAR, NSR W/ OCCASIONAL PVC PER CONCRETE MIXER, PERIPHERAL PULSES WEAK. NS AND ABX INFUSING IN L ARM. R BKA. L LEG COVERED IN WOUNDS, OPEN TO AIR, PT DENIES FEELING IN L FOOT AND PAIN BELOW THE KNEE, L FOOT AND STUMP DISCOLORED AND WARM TO TOUCH. PT WORKED WITH THERAPY ON STANDING AND TRANSFERING. SEEN BY PMD. WILL CONTINUE TO MONITOR, CALL LIGHT IN REACH, BED IN LOWEST POSTION.
--- NOTE | 2019-04-27 17:57 | NUR ---
END OF DAYSHIFT NOTE: NO ACUTE CHANGES NOTED THOUGHOUT THE SHIFT. PT RECEIVED LAST DOSE OF ABX. BLOOD CULTURES CAME BACK POSTIVE. WILL NEED TO STAY FOR FURTHER ASSESSMENT AND ABX PER PMD. WOUNDS DRESSED WITH CALCUIM ALGINATE, AND NON STICK PADS PER WOUND CLINIC. NEW OPEN AREA ON FOOT WOUND.SEEN BY POLICE SERVICE TECHNICIAN ABOUT FUTURE ANGIO 05/02. WILL CONTINUE TO MONITOR UNTIL NEXT SHIFT. CALL LIGHT IN REACH, BED IN LOWEST POSTION,
[2019-04-27] MEDS ORDERED: FURO80 PO (18:51)
[2019-04-28 04:20] LABS: BASOPHILS ABSOLUTE AUTO 0.06 K/mm3 (0.00-0.23); BASOPHILS PERCENT AUTO 0 % (0-2); EOSINOPHILS ABSOLUTE AUTO 0.27 K/mm3 (0.00-0.68); EOSINOPHILS PERCENT AUTO 2 % (0-6); Hematocrit 35.5 % (33.0-51.0); Hemoglobin 11.3 g/dL (11.5-16.0); IMMATURE GRAN ABSOLUTE AUTO 0.14 K/mm3 (0.00-0.10); IMMATURE GRAN PERCENT AUTO 1 % (0-1); LYMPHOCYTES ABSOLUTE AUTO 3.78 K/mm3 (0.84-5.20); LYMPHOCYTES PERCENT AUTO 25 % (21-46); MONOCYTES ABSOLUTE AUTO 0.82 K/mm3 (0.16-1.47); MONOCYTES PERCENT AUTO 6 % (4-13); Mean Corpuscular HGB 29.1 pg (26.0-34.0); Mean Corpuscular HGB Conc 31.8 g/dL (31.5-36.5); Mean Corpuscular Volume 92 fL (80-100); Mean Platelet Volume 10.3 fL (9.1-12.4); NEUTROPHILS ABSOLUTE AUTO 9.94 K/mm3 (1.96-9.15); NEUTROPHILS PERCENT AUTO 66 % (41-73); Platelet Count 365 K/mm3 (150-400); RDW Coefficient Variation 15.1 % (11.7-14.2); RDW Standard Deviation 50.4 fL (35.1-46.3); Red Blood Cell Count 3.88 M/mm3 (3.80-5.20); White Blood Cell Count 15.01 K/mm3 (4.00-11.30)
[2019-04-28 04:42] LABS: Anion Gap 7 mmol/L (6-16); Blood Urea Nitrogen 69 mg/dL (8-24); Bun/Creatinine Ratio 53.5 (12.0-20.0); CO2, Blood 35 mmol/L (21-32); Calcium, Blood 9.2 mg/dL (8.5-10.1); Chloride, Blood 95 mmol/L (98-108); Creatinine, Blood 1.29 mg/dL (0.40-1.00); Glomerular Filtration Rate 45 (60-); Glucose, Blood 73 mg/dL (70-99); Phosphorus, Blood 3.5 mg/dL (2.5-4.9); Potassium, Blood 3.3 mmol/L (3.5-5.5); Sodium, Blood 137 mmol/L (136-145)
--- NOTE | 2019-04-28 05:17 | NUR ---
SHIFT SUMMARY: PATIENT DRESSING CHANGED 04/27/19, NEXT DUE 04/29/19 PER MD/WOUND CARE ORDERS. PATIENT REMAINS ALERT AND ORIENTED, ABLE TO ASSIST WITH TURNS, VSS, NO OTHER ISSUES NOTED. CALL LIGHT WITHIN REACH, BED LOW AND LOCKED.
--- NOTE | 2019-04-28 18:34 | NUR ---
PATIENT HAD ORTHO CONSULT THIS SHIFT. DRESSING CHANGES QDAY NOW. DRESSING WAS CHANGED PER EMAR, PATIENT TOLERATED WELL. NO ACUTE CHAGNES TODAY.
[2019-04-28 21:20] LABS: Vancomycin, Trough 20.2 ug/mL (5.0-10.0)
[2019-04-29 04:51] LABS: BASOPHILS ABSOLUTE AUTO 0.05 K/mm3 (0.00-0.23); BASOPHILS PERCENT AUTO 0 % (0-2); EOSINOPHILS ABSOLUTE AUTO 0.27 K/mm3 (0.00-0.68); EOSINOPHILS PERCENT AUTO 2 % (0-6); Hematocrit 34.3 % (33.0-51.0); Hemoglobin 11.1 g/dL (11.5-16.0); IMMATURE GRAN ABSOLUTE AUTO 0.13 K/mm3 (0.00-0.10); IMMATURE GRAN PERCENT AUTO 1 % (0-1); LYMPHOCYTES ABSOLUTE AUTO 3.29 K/mm3 (0.84-5.20); LYMPHOCYTES PERCENT AUTO 28 % (21-46); MONOCYTES ABSOLUTE AUTO 0.88 K/mm3 (0.16-1.47); MONOCYTES PERCENT AUTO 8 % (4-13); Mean Corpuscular HGB 29.1 pg (26.0-34.0); Mean Corpuscular HGB Conc 32.4 g/dL (31.5-36.5); Mean Corpuscular Volume 90 fL (80-100); NEUTROPHILS ABSOLUTE AUTO 7.05 K/mm3 (1.96-9.15); NEUTROPHILS PERCENT AUTO 61 % (41-73); Platelet Count 348 K/mm3 (150-400); RDW Coefficient Variation 15.2 % (11.7-14.2); RDW Standard Deviation 49.7 fL (35.1-46.3); Red Blood Cell Count 3.81 M/mm3 (3.80-5.20); White Blood Cell Count 11.67 K/mm3 (4.00-11.30)
[2019-04-29 05:14] LABS: Anion Gap 5 mmol/L (6-16); Blood Urea Nitrogen 73 mg/dL (8-24); CO2, Blood 37 mmol/L (21-32); Calcium, Blood 9.1 mg/dL (8.5-10.1); Chloride, Blood 93 mmol/L (98-108); Creatinine, Blood 1.43 mg/dL (0.40-1.00); Glomerular Filtration Rate 40 (60-); Glucose, Blood 220 mg/dL (70-99); Phosphorus, Blood 3.9 mg/dL (2.5-4.9); Potassium, Blood 3.4 mmol/L (3.5-5.5); Sodium, Blood 135 mmol/L (136-145)
--- NOTE | 2019-04-29 07:30 | NUR ---
ASSUMED CARE: PT RESTING QUIETLY IN BED. DENIES NEEDS OR CONCERNS AT THIS TIME.
--- NOTE | 2019-04-29 07:31 | NUR ---
SHIFT SUMMARY PATIENT PLEASENT AND COOPERATIVE THROUGHOUT THE NIGHT. PATIENT APPEARED TO SLEEP WELL THROUGHOUT MOST OF THE NIGHT. PATIENT TURNED Q2H. PATIENT RECEIVED IV ABX PER ORDERS. VITAL SIGNS CHARTED. PATIENT CURRENTLY RESTING IN BED WATCHING TV AND DENIES ANY NEEDS. REPORT GIVEN TO ONCOMING RN.
--- NOTE | 2019-04-29 18:25 | NUR ---
SHIFT SUMMARY: PT RECEIVED DRESSING CHANGE THIS SHIFT PER ORDERS. PLAN IS FOR ORTHO AND PODIATRY TO HAVE MEETING WITH FAMILY TO DETERMINE PLAN. PT MOVES SELF IN BED WELL. DENIES FURTHER NEEDS OR CONCERNS AT THIS TIME.
--- NOTE | 2019-04-30 06:54 | NUR ---
SHIFT SUMMARY PATIENT PLEASENT AND COOPERATIVE THROUGHOUT THE NIGHT. PATIENT APPEARED TO SLEEP WELL LAST NIGHT. IV ABX GIVEN PER ORDERS. PATIENT APPEARED TO BE ABLE TO MOVE SELF ABOUT IN BED MUCH BETTER TONIGHT THAN LAST NIGHT, ASSISTANCE PROVIDED NEEDED. VITAL SIGNS CHARTED. WILL CONTINUE TO MONITOR PATIENT AND REPORT TO ONCOMING RN.
--- NOTE | 2019-04-30 10:25 | NUR ---
AMPUTATION LEFT LE PT STATED, DURING WOUND CARE, THAT SHE WANTS THE LEFT LE REMOVED. SHE HAS TALKED WITH HER FAMILY YESTERDAY AND THEY SUPPORT HER CHOICE. CONTINUE POT.
--- NOTE | 2019-04-30 11:36 | NUR ---
LEFT BKA MESSAGE LEFT ON SURGICAL WITH CHARGE FOR DR GARCIA WHO IS IN SURGERY CURRENTLY. CONTINUE POT.
[2019-04-30 11:37] LABS: BASOPHILS ABSOLUTE AUTO 0.04 K/mm3 (0.00-0.23); BASOPHILS PERCENT AUTO 0 % (0-2); EOSINOPHILS PERCENT AUTO 2 % (0-6); Hematocrit 34.7 % (33.0-51.0); IMMATURE GRAN ABSOLUTE AUTO 0.15 K/mm3 (0.00-0.10); IMMATURE GRAN PERCENT AUTO 1 % (0-1); LYMPHOCYTES ABSOLUTE AUTO 2.88 K/mm3 (0.84-5.20); LYMPHOCYTES PERCENT AUTO 22 % (21-46); MONOCYTES ABSOLUTE AUTO 0.76 K/mm3 (0.16-1.47); MONOCYTES PERCENT AUTO 6 % (4-13); Mean Corpuscular HGB 28.4 pg (26.0-34.0); Mean Corpuscular HGB Conc 31.7 g/dL (31.5-36.5); Mean Corpuscular Volume 90 fL (80-100); Mean Platelet Volume 10.4 fL (9.1-12.4); NEUTROPHILS ABSOLUTE AUTO 9.16 K/mm3 (1.96-9.15); NEUTROPHILS PERCENT AUTO 70 % (41-73); Platelet Count 338 K/mm3 (150-400); RDW Standard Deviation 49.1 fL (35.1-46.3); Red Blood Cell Count 3.87 M/mm3 (3.80-5.20); White Blood Cell Count 13.19 K/mm3 (4.00-11.30)
[2019-04-30 11:51] LABS: Albumin, Blood 2.1 g/dL (3.4-5.0); Anion Gap 6 mmol/L (6-16); Blood Urea Nitrogen 76 mg/dL (8-24); Bun/Creatinine Ratio 46.1 (12.0-20.0); CO2, Blood 35 mmol/L (21-32); Chloride, Blood 90 mmol/L (98-108); Creatinine, Blood 1.65 mg/dL (0.40-1.00); Glomerular Filtration Rate 34 (60-); Glucose, Blood 457 mg/dL (70-99); Potassium, Blood 3.9 mmol/L (3.5-5.5); Sodium, Blood 131 mmol/L (136-145)
--- NOTE | 2019-04-30 11:57 | NUR ---
CBG 445 PT EELVATED CBG CALLED TO DR STEPHENSON PER PROTOCOL. NO NEW ORDERS. DR STEPHENSON HAD JUST INCREASED PT TO HIGH SLIDING SCALE AND INCREASED HER LANTUS COVERAGE. CONTINUE POT.
--- NOTE | 2019-04-30 14:28 | NUR ---
TED GARCIA CALLED AND LEFT A MESSAGE AT ANSWERING SERVICE FOR DR GORDON. CONTINUE POT.
[2019-04-30 21:00] LABS: Creatinine, Blood 1.79 mg/dL (0.40-1.00); Vancomycin, Trough 26.9 ug/mL (5.0-10.0)
[2019-05-01 04:05] LABS: BASOPHILS ABSOLUTE AUTO 0.05 K/mm3 (0.00-0.23); BASOPHILS PERCENT AUTO 0 % (0-2); EOSINOPHILS ABSOLUTE AUTO 0.32 K/mm3 (0.00-0.68); EOSINOPHILS PERCENT AUTO 3 % (0-6); Hematocrit 34.9 % (33.0-51.0); Hemoglobin 11.2 g/dL (11.5-16.0); IMMATURE GRAN ABSOLUTE AUTO 0.12 K/mm3 (0.00-0.10); IMMATURE GRAN PERCENT AUTO 1 % (0-1); LYMPHOCYTES ABSOLUTE AUTO 3.71 K/mm3 (0.84-5.20); LYMPHOCYTES PERCENT AUTO 29 % (21-46); MONOCYTES ABSOLUTE AUTO 0.82 K/mm3 (0.16-1.47); MONOCYTES PERCENT AUTO 6 % (4-13); Mean Corpuscular HGB 28.9 pg (26.0-34.0); Mean Corpuscular HGB Conc 32.1 g/dL (31.5-36.5); Mean Corpuscular Volume 90 fL (80-100); Mean Platelet Volume 9.7 fL (9.1-12.4); NEUTROPHILS PERCENT AUTO 61 % (41-73); Platelet Count 321 K/mm3 (150-400); RDW Coefficient Variation 14.8 % (11.7-14.2); RDW Standard Deviation 49.1 fL (35.1-46.3); Red Blood Cell Count 3.87 M/mm3 (3.80-5.20); White Blood Cell Count 12.92 K/mm3 (4.00-11.30)
[2019-05-01 04:23] LABS: Albumin, Blood 2.2 g/dL (3.4-5.0); Anion Gap 6 mmol/L (6-16); Blood Urea Nitrogen 79 mg/dL (8-24); Bun/Creatinine Ratio 47.3 (12.0-20.0); CO2, Blood 38 mmol/L (21-32); Calcium, Blood 9.4 mg/dL (8.5-10.1); Chloride, Blood 91 mmol/L (98-108); Creatinine, Blood 1.67 mg/dL (0.40-1.00); Glomerular Filtration Rate 33 (60-); Glucose, Blood 250 mg/dL (70-99); Phosphorus, Blood 3.5 mg/dL (2.5-4.9); Potassium, Blood 3.5 mmol/L (3.5-5.5); Sodium, Blood 135 mmol/L (136-145); Vancomycin, Random 22.7 ug/mL
--- NOTE | 2019-05-01 07:25 | NUR ---
SHIFT SUMMARY PATIENT PLEASENT AND COOPERATIVE THROUGHOUT THE NIGHT. PATIENT APPEARED TO SLEEP WELL LAST NIGHT. PATIENT APPEARED TO BE ABLE TO MOVE SELF ABOUT IN BED, ASSISTANCE PROVIDED NEEDED. PATIENT NPO SINCE MIDNIGHT FOR PROCEDURE TODAY. VITAL SIGNS CHARTED. PATIENT CURRENTLY APPEARS TO BE ASLEEP. REPORT GIVEN TO ONCOMING RN.
--- NOTE | 2019-05-01 08:56 | NUR ---
DR. SIMPSON AT BEDSIDE TO SEE PATIENT. UPON READING NOTES, HE HAS DECIDED IT WOULD BE BEST TO HOLD OFF ON LBKA AND HAVE DR. ZEPEDA PROCEED WITH REVASCULARIZATION. CALLED OG IN CLINIC TO DISCUSS THE ISSUE AND FIND OUT POC, LEFT VM. WILL CALL BACK IF NO RESPONSE BY 10. WILL CONTINUE TO MONITOR PATIENT.
--- NOTE | 2019-05-01 15:49 | NUR ---
PT HAS HAD A GOOD DAY, SHE WORKED WITH PT/OT AND WAS ABLE TO GET UP TO CHAIR FOR BREAKFAST AND LUNCH. PT BACK IN BED AND RESTING AT THIS TIME. AWAITING CALL FROM OG IN HEART CENTER TO CONFIRM DR. ZEPEDA SCHEDULE FOR PATIENT REVASCULARIZATION. ORDER TO TRANSFER PATIENT TO MEDICAL FLOOR, WILL GIVE REPORT TO CHASITY Burroughs
--- NOTE | 2019-05-01 18:06 | NUR ---
SHE ARRIVED TO ROOM 359 FROM U 11 ABOUT 1720. ORIENTED TO THE ROOM. VS TAKEN. WOUND CARE DONE TO L FOOT/ANKLE/LEG ORDERED. SHE TOLERATED IT WELL. SHE SAYS IT HAS BEEN GOING ON FOR ABOUT 2 YEARS. SM AMT SS DRAINAGE ON OLD DRESSINGS. SHE HAS A SOCK ON HER R LEG STUMP AND SAYS SHE HAS NO SKIN PROBLEMS THERE. CALL LIGHT IN REACH. DINNER MEDS GIVEN INCLUDING SS INSULIN FOR CBG OF 400. SHE IS EATING WELL. SHE HAS JUST REMOVED HER DENTURES AND PUT IN A CUP FOR CLEANING OVERNIGHT. EACH LEG ELEVATED ON 1 PILLOW.
[2019-05-02 05:30] LABS: Vancomycin, Random 15.9 ug/mL
[2019-05-02 06:08] LABS: BASOPHILS ABSOLUTE AUTO 0.04 K/mm3 (0.00-0.23); BASOPHILS PERCENT AUTO 0 % (0-2); EOSINOPHILS PERCENT AUTO 3 % (0-6); Hematocrit 34.9 % (33.0-51.0); Hemoglobin 11.3 g/dL (11.5-16.0); IMMATURE GRAN ABSOLUTE AUTO 0.15 K/mm3 (0.00-0.10); IMMATURE GRAN PERCENT AUTO 1 % (0-1); LYMPHOCYTES ABSOLUTE AUTO 3.56 K/mm3 (0.84-5.20); LYMPHOCYTES PERCENT AUTO 25 % (21-46); MONOCYTES ABSOLUTE AUTO 0.83 K/mm3 (0.16-1.47); MONOCYTES PERCENT AUTO 6 % (4-13); Mean Corpuscular HGB 28.8 pg (26.0-34.0); Mean Corpuscular HGB Conc 32.4 g/dL (31.5-36.5); Mean Corpuscular Volume 89 fL (80-100); Mean Platelet Volume 10.1 fL (9.1-12.4); NEUTROPHILS ABSOLUTE AUTO 9.51 K/mm3 (1.96-9.15); NEUTROPHILS PERCENT AUTO 66 % (41-73); Platelet Count 314 K/mm3 (150-400); RDW Coefficient Variation 14.8 % (11.7-14.2); RDW Standard Deviation 48.5 fL (35.1-46.3); Red Blood Cell Count 3.93 M/mm3 (3.80-5.20); White Blood Cell Count 14.49 K/mm3 (4.00-11.30)
[2019-05-02 06:25] LABS: Albumin, Blood 2.2 g/dL (3.4-5.0); Anion Gap 5 mmol/L (6-16); Blood Urea Nitrogen 86 mg/dL (8-24); Bun/Creatinine Ratio 50.9 (12.0-20.0); CO2, Blood 33 mmol/L (21-32); Calcium, Blood 8.9 mg/dL (8.5-10.1); Chloride, Blood 92 mmol/L (98-108); Creatinine, Blood 1.69 mg/dL (0.40-1.00); Glomerular Filtration Rate 33 (60-); Glucose, Blood 313 mg/dL (70-99); Phosphorus, Blood 3.5 mg/dL (2.5-4.9); Potassium, Blood 3.9 mmol/L (3.5-5.5); Sodium, Blood 130 mmol/L (136-145)
--- NOTE | 2019-05-02 13:46 | NUR ---
SHE REMAINS NPO FOR ANGIOGRAM LATER TODAY. SHE HAS SLEPT A LOT. SHE VOIDED WELL ON THE BEDPAN THIS LAST TIME. NO INCONTINENCE.
--- NOTE | 2019-05-02 16:53 | NUR ---
TO [facility] FOR REVASCULARIZATION PROCEDURE AT 1620. SHE WENT IN HER BED. SHE WILL GO TO ICU 2 POST PROCEDURE. HER FAMILY TOOK HER PERSONAL BELONGINGS. I TOOK HER HOSPITAL SUPPLIES AND HER PERSONAL W/C WITH CUSHION TO ICU 2. LEFT A MESSAGE FOR JOSE RN TO CALL ME FOR REPORT WHEN HE IS READY. CAME TO [facility] BEFORE LEAVING THE ROOM FOR CONSENT FOR PROCEDURE. SHE HAS HAD A COMFORTABLE DAY. WAS NOTIFIED OF THE 335 CBG MID-AFTERNOON. NO COVERAGE TO PREVENT POSSIBLE HYPOGLYCEMIA DURING PROCEDURE.
--- NOTE | 2019-05-02 19:20 | NUR ---
ASSUMED CARE BEDSIDE REPORT RECIEVED. PT ARRIVED FROM HEART CENTER DURING SHIFT CHANGE. PT IS AWAKE, ALERT, AND ORIENTED. PT DENIES PAIN OR DISCOMFORT AT THIS TIME. PT WITH FAMILY MEMBERS AT BEDSIDE. PT ON 2L O2 NC, VITAL SIGNS STABLE. PT S/P PERIPHERAL TO LEFT LOWER EXTREMITY. ARTERIAL SHEATH IN PLACE TO LEFT GROIN, NO SUTURES IN, DRESSING INTACT. PULSES PRESENT TO LLE AND GOOD SPO2 WAVEFORM. WOUNDS TO LLE OPEN TO AIR AT THIS TIME. WILL DRESS WOUNDS PER ORDERS. PT WITH RIGHT BKA. PT WITH ATTENDS IN PLACE AND VOIDING LARGE AMOUNTS. WILL CONTINUE TO MONITOR.
[2019-05-03 03:31] LABS: BASOPHILS ABSOLUTE AUTO 0.03 K/mm3 (0.00-0.23); BASOPHILS PERCENT AUTO 0 % (0-2); EOSINOPHILS ABSOLUTE AUTO 0.03 K/mm3 (0.00-0.68); EOSINOPHILS PERCENT AUTO 0 % (0-6); Hematocrit 35.1 % (33.0-51.0); Hemoglobin 11.1 g/dL (11.5-16.0); IMMATURE GRAN ABSOLUTE AUTO 0.16 K/mm3 (0.00-0.10); IMMATURE GRAN PERCENT AUTO 1 % (0-1); LYMPHOCYTES ABSOLUTE AUTO 2.31 K/mm3 (0.84-5.20); LYMPHOCYTES PERCENT AUTO 17 % (21-46); MONOCYTES ABSOLUTE AUTO 0.56 K/mm3 (0.16-1.47); MONOCYTES PERCENT AUTO 4 % (4-13); Mean Corpuscular HGB 28.9 pg (26.0-34.0); Mean Corpuscular HGB Conc 31.6 g/dL (31.5-36.5); Mean Corpuscular Volume 91 fL (80-100); Mean Platelet Volume 10.4 fL (9.1-12.4); NEUTROPHILS ABSOLUTE AUTO 10.57 K/mm3 (1.96-9.15); NEUTROPHILS PERCENT AUTO 77 % (41-73); Platelet Count 311 K/mm3 (150-400); RDW Coefficient Variation 14.7 % (11.7-14.2); RDW Standard Deviation 49.4 fL (35.1-46.3); Red Blood Cell Count 3.84 M/mm3 (3.80-5.20); White Blood Cell Count 13.66 K/mm3 (4.00-11.30)
[2019-05-03 03:52] LABS: Albumin, Blood 2.3 g/dL (3.4-5.0); Anion Gap 7 mmol/L (6-16); Blood Urea Nitrogen 86 mg/dL (8-24); Bun/Creatinine Ratio 47.3 (12.0-20.0); CO2, Blood 33 mmol/L (21-32); Calcium, Blood 8.9 mg/dL (8.5-10.1); Chloride, Blood 94 mmol/L (98-108); Creatinine, Blood 1.82 mg/dL (0.40-1.00); Glomerular Filtration Rate 30 (60-); Glucose, Blood 254 mg/dL (70-99); Phosphorus, Blood 4.5 mg/dL (2.5-4.9); Potassium, Blood 3.9 mmol/L (3.5-5.5); Sodium, Blood 134 mmol/L (136-145)
--- NOTE | 2019-05-03 05:58 | NUR ---
SHIFT SUMMARY NO ACUTE CHANGES THIS SHIFT. PT HAS SLEPT THROUGHOUT MOST OF THE NIGHT POST SHEATH REMOVAL. SEE HC ASSESSMENTS FOR MORE INFO ABOUT SHEATH REMOVAL. SITE IS SOFT, NON TENDER, AND NO HEMATOMA PRESENT. BRUNO AND OPSITE IN PLACE. PT IS ALERT AND ORIENTED WHEN AWAKE. PT HAS DENIED PAIN OR DISCOMFORT. VITAL SIGNS STABLE WITH PT ON 2L O2 NC. IV SALINE LOCKED. ATTENDS IN PLACE. DRESSINGS TO LEFT FOOT C/D/I. WILL CONTINUE TO MONITOR AND REPORT OFF TO ONCOMING RN.
--- NOTE | 2019-05-03 07:39 | NUR ---
Recieved report from Balbir GASPAR. Patient supine tilted to left side. She is awake and oriented and able to communicate her needs. She is on two lites O2 and sats low 90%'s, Here CBG was 209 and will cover per order. Her left groin site C/D/I and chary and clear op site dressing, no oozing, swelling or hematoma. NOC shift cleaned and dressed LE, currently C/D/I. Patient is R BKA. She is starting to tolerate breakfast now and tolerates liquids well.
--- NOTE | 2019-05-03 09:30 | NUR ---
Patient ate 100% of breakfast, then am meds, and then bath. Left groin dressing rolled up and removed and cleaned place new dressing. Patient currently on bed nguyen to try again. She was asking about going home and will talk with . She remains on 2L O2 and sats low to mid 90%'s.
--- NOTE | 2019-05-03 11:25 | NUR ---
Patient was on bed nguyen for about 30 minutes and the assisted to disimpact with large amount of had formed round stools. No other changes and awaiting Dr John to round and Dr Ma has been by and will await his visit. She remains on RA and sats low to mid 90%'s. She is asking for bed pain again.
[2019-05-03] MEDS ORDERED: Vsl#3 Capsule1 EACH PO (12:52)
[2019-05-03] MEDS ORDERED: LEVO750 PO (12:53)
[2019-05-03] MEDS ORDERED: Pedi-Dri 100,0060 GM TOP (12:56)
[2019-05-03] MEDS ORDERED: ABAT250V (12:56)
--- NOTE | 2019-05-03 13:37 | NUR ---
DISCHARGE INSTRUCTIONS GIVEN TO PT BY COLTON GASPAR. PT. IV REMOVED PRIOR TO DISCHARGE. PT ASSISTED WITH GETTING DRESSED, NEW ATTENDS IN PLACE. PT ASSSITED TO STAND AND PIVOT INTO HOME WHEEL CHAIR. PT. DAUGHTER AT BEDSIDE TO TAKE PT HOME. PT VSS UPON DISCHARGE.
--- NOTE | 2019-05-03 14:00 | NUR ---
Patient discharged home. Meds called in to [facility]. Reviewed appts., written discharge instructions, new meds and meds to stop or changed dose. She returned understanding of all this information. She was a two person transfer to chair and with no help from family she transfered. PCT, cleaned her up and got her dressed and Clara GASPAR removed IV's intact and she was wheeled to [facility] and went home. internet media planner came by earlier and patient stated she had state payed workers taking care of her needs and refused home health.
== END 2019-05-03 13:51 | disposition home or self-care (01) | DRG 854 ==
LOC: ER 14:20 → MEDS 18:16 → PCU 18:16 → MEDS 05-01 17:04 → ICUE 05-02 16:19
PROVIDERS: Internal Medicine; Physician Assistant; ADMIT Internal Medicine
PROC: 047S3ZZ Dilation of Left Posterior Tibial Artery, Percutaneous Approach (ICD-10-PCS; principal; 2019-05-03)
PROC: 047U3ZZ Dilation of Left Peroneal Artery, Percutaneous Approach (ICD-10-PCS; 2019-05-03)
PROC: 047N3ZZ Dilation of Left Popliteal Artery, Percutaneous Approach (ICD-10-PCS; 2019-05-03)
DX: A41.9 Sepsis, unspecified organism (principal); E87.1 Hypo-osmolality and hyponatremia; J96.11 Chronic respiratory failure with hypoxia; J44.9 Chronic obstructive pulmonary disease, unspecified; F17.210 Nicotine dependence, cigarettes, uncomplicated; Z79.4 Long term (current) use of insulin; E11.51 Type 2 diabetes mellitus with diabetic peripheral angiopathy without gangrene; N18.3 Chronic kidney disease, stage 3 (moderate); E11.42 Type 2 diabetes mellitus with diabetic polyneuropathy; E78.5 Hyperlipidemia, unspecified; Z89.511 Acquired absence of right leg below knee; E66.9 Obesity, unspecified; Z86.73 Personal history of transient ischemic attack (TIA), and cerebral infarction without residual deficits; K21.9 Gastro-esophageal reflux disease without esophagitis; E87.6 Hypokalemia; E11.65 Type 2 diabetes mellitus with hyperglycemia; Z99.81 Dependence on supplemental oxygen; E11.622 Type 2 diabetes mellitus with other skin ulcer; L97.522 Non-pressure chronic ulcer of other part of left foot with fat layer exposed; I12.9 Hypertensive chronic kidney disease with stage 1 through stage 4 chronic kidney disease, or unspecified chronic kidney disease; E11.22 Type 2 diabetes mellitus with diabetic chronic kidney disease; Z68.34 Body mass index [BMI] 34.0-34.9, adult
CPT/HCPCS: 36415; 37228; 37232; 70450; 73720; 73723; 75710; 80048; 80053; 80069; 80076; 80202; 82550; 82565; 82947; 83605; 84484; 85025; 85347; 85651; 85730; 86140; 87040; 93005; 93010; 96361; 96365; 96375; 97110; 97162; 97166; 97530; 97535; 99152; 99153; 99285-25; A9577; C1725; C1769; C1887; C1894; G0463; J0744; J1200; J1644; J1650; J1720; J1815; J1956; J2250; J3010; J3370; J3480; J7030; J7040; J7050; J7799; Q9967

== ENCOUNTER 2019-05-10 18:21 | Observation (INO) | payer MEDICARE, OTHER ==
[~2019-05-10] VITALS: Ht 165.1 cm; Wt 111.5 kg
[~2019-05-10 18:21] MED LIST changes: +ABAT250V; +KETOROLAC TROMET5 ML RIGHTEYE; +POTASSIUM CHLO20 MEQ PO; +Pedi-Dri 100,0060 GM TOP; +Vsl#3 Capsule1 EACH PO
[2019-05-10 19:19] LABS: BASOPHILS ABSOLUTE AUTO 0.06 K/mm3 (0.00-0.23); BASOPHILS PERCENT AUTO 0 % (0-2); EOSINOPHILS PERCENT AUTO 2 % (0-6); Hematocrit 31.4 % (33.0-51.0); Hemoglobin 10.1 g/dL (11.5-16.0); IMMATURE GRAN ABSOLUTE AUTO 0.16 K/mm3 (0.00-0.10); IMMATURE GRAN PERCENT AUTO 1 % (0-1); LYMPHOCYTES ABSOLUTE AUTO 3.03 K/mm3 (0.84-5.20); LYMPHOCYTES PERCENT AUTO 18 % (21-46); MONOCYTES ABSOLUTE AUTO 0.99 K/mm3 (0.16-1.47); MONOCYTES PERCENT AUTO 6 % (4-13); Mean Corpuscular HGB 28.9 pg (26.0-34.0); Mean Corpuscular HGB Conc 32.2 g/dL (31.5-36.5); Mean Corpuscular Volume 90 fL (80-100); Mean Platelet Volume 9.9 fL (9.1-12.4); NEUTROPHILS ABSOLUTE AUTO 12.77 K/mm3 (1.96-9.15); NEUTROPHILS PERCENT AUTO 74 % (41-73); Platelet Count 363 K/mm3 (150-400); RDW Coefficient Variation 15.7 % (11.7-14.2); RDW Standard Deviation 51.2 fL (35.1-46.3); Red Blood Cell Count 3.49 M/mm3 (3.80-5.20); White Blood Cell Count 17.31 K/mm3 (4.00-11.30)
[2019-05-10 19:54] LABS: Albumin, Blood 2.4 g/dL (3.4-5.0); Albumin/Globulin Ratio 0.4 (0.8-1.8); Bilirubin, Total 0.3 mg/dL (0.1-1.0); Calcium, Blood 8.8 mg/dL (8.5-10.1); Creatinine, Blood 1.89 mg/dL (0.40-1.00); Globulin, Blood 5.4 g/dL (2.2-4.0); Potassium, Blood 3.1 mmol/L (3.5-5.5); Total Protein, Blood 7.8 g/dL (6.4-8.2)
[2019-05-10] MEDS ORDERED: GABA100 PO (21:00)
[2019-05-10] MEDS ORDERED: GABA600 PO (21:04)
[2019-05-10] MEDS ORDERED: GABA300 PO (21:04)
[2019-05-10] MEDS ORDERED: FURO80 PO ×2 (21:08→21:51)
[2019-05-10 21:33] LABS: C-REACTIVE PROTEIN, EXT RANGE 7.67 mg/dL (0.000-0.300); Magnesium, Blood 1.8 mg/dL (1.6-2.4)
[2019-05-11] MEDS ORDERED: CARV3.125 PO (00:50)
[2019-05-11 04:23] LABS: BASOPHILS ABSOLUTE AUTO 0.04 K/mm3 (0.00-0.23); BASOPHILS PERCENT AUTO 0 % (0-2); EOSINOPHILS ABSOLUTE AUTO 0.31 K/mm3 (0.00-0.68); EOSINOPHILS PERCENT AUTO 2 % (0-6); Hematocrit 28.4 % (33.0-51.0); IMMATURE GRAN PERCENT AUTO 1 % (0-1); LYMPHOCYTES ABSOLUTE AUTO 3.33 K/mm3 (0.84-5.20); LYMPHOCYTES PERCENT AUTO 24 % (21-46); MONOCYTES ABSOLUTE AUTO 0.69 K/mm3 (0.16-1.47); MONOCYTES PERCENT AUTO 5 % (4-13); Mean Corpuscular HGB 29.1 pg (26.0-34.0); Mean Corpuscular HGB Conc 31.7 g/dL (31.5-36.5); Mean Corpuscular Volume 92 fL (80-100); Mean Platelet Volume 9.7 fL (9.1-12.4); NEUTROPHILS ABSOLUTE AUTO 9.39 K/mm3 (1.96-9.15); NEUTROPHILS PERCENT AUTO 67 % (41-73); Platelet Count 329 K/mm3 (150-400); RDW Coefficient Variation 15.5 % (11.7-14.2); RDW Standard Deviation 51.7 fL (35.1-46.3); Red Blood Cell Count 3.09 M/mm3 (3.80-5.20); White Blood Cell Count 13.96 K/mm3 (4.00-11.30)
[2019-05-11 04:39] LABS: International Normalized Ratio 1.03; Prothrombin Time Results 10.9 Sec (9.7-11.5)
[2019-05-11 04:43] LABS: Alanine Aminotransfer (ALT/SGP 18 U/L (12-78); Albumin, Blood 1.9 g/dL (3.4-5.0); Albumin/Globulin Ratio 0.4 (0.8-1.8); Alk Phos 117 U/L (50-136); Anion Gap 4 mmol/L (6-16); Aspartate Aminotrans (AST/SGOT 18 U/L (12-37); Bilirubin, Total 0.2 mg/dL (0.1-1.0); Blood Urea Nitrogen 28 mg/dL (8-24); Bun/Creatinine Ratio 20.4 (12.0-20.0); CO2, Blood 32 mmol/L (21-32); Calcium, Blood 8.4 mg/dL (8.5-10.1); Chloride, Blood 101 mmol/L (98-108); Creatinine, Blood 1.37 mg/dL (0.40-1.00); Globulin, Blood 4.7 g/dL (2.2-4.0); Glomerular Filtration Rate 42 (60-); Glucose, Blood 118 mg/dL (70-99); Potassium, Blood 3.3 mmol/L (3.5-5.5); Sodium, Blood 137 mmol/L (136-145); Total Protein, Blood 6.6 g/dL (6.4-8.2); Vancomycin, Random 23.8 ug/mL
[2019-05-11 06:18] LABS: Source, Urine Clean Catch
[2019-05-11 06:22] LABS: Appearance, Urine Clear (Clear); Bilirubin, Urine Neg (Neg); Blood, Urine Neg (Neg); Color, Urine Yellow (P-Yellow); Glucose Qualitative, Urine Neg (Neg); Ketones, Urine Neg (Neg); Leukocyte Esterase, Urine 2+ (Neg); Nitrite, Urine Neg (Neg); Protein, Urine Neg (Neg); Specific Gravity, Urine 1.005 (1.003-1.022); Urobilinogen, Urine NORM (Normal)
[2019-05-11 06:30] LABS: Red Blood Cells, Urine Not Seen /hpf (0-2); Squamous Epithelial Cells Few /hpf (Few)
[2019-05-11 06:31] LABS: Bacteria Few /hpf; Other Crystals Few /hpf
--- NOTE | 2019-05-11 08:04 | NUR ---
END OF SHIFT SUMMARY ASSUMED CARE OF PT FROM ED. UPON ARRIVAL, PT ALERT AND ORIENTED TALKING WITH STAFF APPROPRIATELY. PT TO ROOM WITH NS IV WIDE OPEN, THIS BAG FINISHED, MAINTENANCE RATE STARTED @75MLS/HR. PT RECEIVED 2 BAGS KCL IV PER EMAR. IV ABX INFUSED. PHOTOS OF WOUNDS PLACED IN CHART. PT PRESENTS WITH DIABETIC NON HEALING FOOT ULCERS ON L FOOT/LEG. LARGE WIDESPREAD SCALIN/PEELING. NUMBNESS IN THAT EXTREMITY. PT HAS R BKA. PT ON 3L NC, SPO2 >92%. PT HAS REQUIRED ASSISTANCE WITH BEDPAN MULTIPLE TIMES THIS SHIFT. HAS REQUIRED LITTLE FROM STAFF THIS SHIFT. PT HAS RESTED FOR MOST OF SHIFT AFTER ADMISSION ASSESMENT COMPLETED. CALL LIGHT WITHIN REACH. BED IN LOWEST POSITION. REPORT GIVEN TO ONCOMING NURSE BRAD.
--- NOTE | 2019-05-11 15:15 | NUR ---
PT HAS HAD A GOOD DAY, EVALUATED BY DR. HOLLOWAY AND DR. PAUL TODAY. DR. HOLLOWAY BELIEVES PATIENT COULD BE DISCHARGED HOME TODAY WITH CONTINUED FOLLOW UP WITH THE WOUND CLINIC. THIS RN PROVIDED WOUND CARE WITH CALCIUM ALGENATE, FOAM DRESSINGS AND WRAPPED IN KERLEX. FAMILY VOICED CONCERNS ABOUT PT NEEDING IV ABX TO GET OVER INFECTION. DR. PAUL CONSULTED AND UPON HIS ASSESSMENT HE BELIEVE 24-HOURS OF VANCYO THEN DC HOME IS APPROPRIATE. PT TRANSFER ORDER RECEIVED, GAVE REPORT TO CHASITY Boyd AND TRANSFERRED PATIENT TO MEDICAL FLOOR ROOM 354.
--- NOTE | 2019-05-11 17:10 | NUR ---
PCU 5 TRANSFER TO 354 APPROX 1530 THIS AFTERNOON. REPORT RECIVED FROM BRAD RECORDAK OPERATOR. PT IS A/O X4, PLEASANT AFFECT. STATE NO PAIN/DISCOMFORT @ THIS TIME. ORIENTED TO ROOM, FALL PRECAUTIONS, ROUNDING & CALL SYSTEM. RBKA, SHE STATE ABLE TO STAND/PIVOT TO CHAIR 1 ASSIST FWW. LLE ELSA CHANGED IN PCU TODAY, DR PALU IN TO ASSESS WOUNDS EARLIER IN PCU JUST PRIOR TO TRANSFER. RITAG RE-ENFORCED ON ARRIVAL TO . VSS. CONTACT [facility] PRECAUTIONS R/T HX MRSA WOUNDS.
--- NOTE | 2019-05-12 05:49 | NUR ---
SHIFT SUMMARY PT SLEPT WELL T/O NIGHT, BRIEF CHANGED X1 OF INCONTINENT URINE. PT DIFFICULT TO AROUSE WITH CHANGING. PT HAS OXYGEN ON PER NC AT 2L. WILL CONTINUE TO MONITOR.
[2019-05-12] MEDS ORDERED: Sulfamethoxazo1 EAC4 PO (11:28)
--- NOTE | 2019-05-12 11:49 | NUR ---
SUMMARY/DISCHARGE PT DISCHARGED TO HOME WITH HOME HEALTH, PT AGREEABLE TO [facility], PT VERBALIZED UNDERSTANDING OF DISCHARGE INSTRUCTIONS REGARDING FOLLOW UP, WOUND CARE, AND MEDICATIONS, MEDS CALLED TO [facility], PT'S FAMILY ON THE WAY IN, PT WAITING
--- NOTE | 2019-05-12 12:50 | NUR ---
SUMMARY/DISCHARGE PT DISCHARGED TO HOME, PT TAKEN OUT SAFELY VIA WHEELCHAIR WITH THE FAMILY
== END 2019-05-12 12:35 | disposition home or self-care (01) ==
LOC: ER 18:21 → MEDS 18:22 → PCU 18:22 → ER 21:29 → PCU 21:29 → MEDS 05-11 15:36
PROVIDERS: Nurse Practitioner Acute Care; Physician Assistant; ADMIT Internal Medicine
DX: E11.621 Type 2 diabetes mellitus with foot ulcer (principal); L97.529 Non-pressure chronic ulcer of other part of left foot with unspecified severity; L03.116 Cellulitis of left lower limb; R65.10 Systemic inflammatory response syndrome (SIRS) of non-infectious origin without acute organ dysfunction; E11.51 Type 2 diabetes mellitus with diabetic peripheral angiopathy without gangrene; G40.909 Epilepsy, unspecified, not intractable, without status epilepticus; N18.3 Chronic kidney disease, stage 3 (moderate); J44.9 Chronic obstructive pulmonary disease, unspecified; F17.210 Nicotine dependence, cigarettes, uncomplicated; Z79.899 Other long term (current) drug therapy; Z99.81 Dependence on supplemental oxygen; Z91.14 Patient's other noncompliance with medication regimen; Z79.4 Long term (current) use of insulin; Z79.82 Long term (current) use of aspirin; Z79.02 Long term (current) use of antithrombotics/antiplatelets; E78.5 Hyperlipidemia, unspecified; Z88.6 Allergy status to analgesic agent; Z88.5 Allergy status to narcotic agent; Z88.8 Allergy status to other drugs, medicaments and biological substances
CPT/HCPCS: 36415; 51701; 71045; 80053; 80202; 81001; 82947; 83605; 83735; 84145; 85025; 85610; 85651; 86140; 87040; 87086; 96361-59; 96365-59; 96366; 96367-59; 96372; 96375; 96375-59; 96376; 99284-25; G0378; J1170; J1650; J1956; J2405; J3370; J3480; J7030; J7050; J7120

== ENCOUNTER 2019-05-17 13:30 | Day surgery (SDC) | payer MEDICARE, OTHER ==
[~2019-05-17 13:30] MED LIST changes: +GABA100 PO; +GABA300 PO; +GABA600 PO; +Sulfamethoxazo1 EAC4 PO
== END 2019-05-17 22:44 | disposition home or self-care (01) ==
LOC: WOUND 13:30
DX: E11.621 Type 2 diabetes mellitus with foot ulcer (principal); E11.622 Type 2 diabetes mellitus with other skin ulcer; L97.321 Non-pressure chronic ulcer of left ankle limited to breakdown of skin; L97.521 Non-pressure chronic ulcer of other part of left foot limited to breakdown of skin; L97.821 Non-pressure chronic ulcer of other part of left lower leg limited to breakdown of skin; E11.51 Type 2 diabetes mellitus with diabetic peripheral angiopathy without gangrene; I73.9 Peripheral vascular disease, unspecified; I87.2 Venous insufficiency (chronic) (peripheral); E11.40 Type 2 diabetes mellitus with diabetic neuropathy, unspecified; E11.69 Type 2 diabetes mellitus with other specified complication; M86.9 Osteomyelitis, unspecified; I13.2 Hypertensive heart and chronic kidney disease with heart failure and with stage 5 chronic kidney disease, or end stage renal disease; E11.22 Type 2 diabetes mellitus with diabetic chronic kidney disease; N18.6 End stage renal disease; I50.9 Heart failure, unspecified; J44.9 Chronic obstructive pulmonary disease, unspecified; I25.10 Atherosclerotic heart disease of native coronary artery without angina pectoris; G40.909 Epilepsy, unspecified, not intractable, without status epilepticus; I25.2 Old myocardial infarction; G47.30 Sleep apnea, unspecified

== ENCOUNTER 2019-05-24 13:45 | Day surgery (SDC) | payer MEDICARE, OTHER | END 2019-05-24 23:03 | disposition home or self-care (01) | LOC: WOUND 13:45 | DX: E11.621 Type 2 diabetes mellitus with foot ulcer (principal); E11.622 Type 2 diabetes mellitus with other skin ulcer; L97.322 Non-pressure chronic ulcer of left ankle with fat layer exposed; L97.521 Non-pressure chronic ulcer of other part of left foot limited to breakdown of skin; E11.51 Type 2 diabetes mellitus with diabetic peripheral angiopathy without gangrene; I73.9 Peripheral vascular disease, unspecified; E11.40 Type 2 diabetes mellitus with diabetic neuropathy, unspecified; I13.2 Hypertensive heart and chronic kidney disease with heart failure and with stage 5 chronic kidney disease, or end stage renal disease; E11.22 Type 2 diabetes mellitus with diabetic chronic kidney disease; I50.9 Heart failure, unspecified; N18.6 End stage renal disease; I25.10 Atherosclerotic heart disease of native coronary artery without angina pectoris; I25.2 Old myocardial infarction; J44.9 Chronic obstructive pulmonary disease, unspecified; I87.2 Venous insufficiency (chronic) (peripheral); G47.30 Sleep apnea, unspecified | CPT/HCPCS: 73630 ==

== ENCOUNTER 2019-06-07 13:30 | Day surgery (SDC) | payer MEDICARE, OTHER | END 2019-06-07 22:40 | disposition home or self-care (01) | LOC: WOUND 13:30 | DX: E11.622 Type 2 diabetes mellitus with other skin ulcer (principal); L97.321 Non-pressure chronic ulcer of left ankle limited to breakdown of skin; L97.821 Non-pressure chronic ulcer of other part of left lower leg limited to breakdown of skin; E11.621 Type 2 diabetes mellitus with foot ulcer; L97.522 Non-pressure chronic ulcer of other part of left foot with fat layer exposed; E11.51 Type 2 diabetes mellitus with diabetic peripheral angiopathy without gangrene; E11.65 Type 2 diabetes mellitus with hyperglycemia; I11.0 Hypertensive heart disease with heart failure; I50.9 Heart failure, unspecified; J44.9 Chronic obstructive pulmonary disease, unspecified; E78.5 Hyperlipidemia, unspecified; I69.351 Hemiplegia and hemiparesis following cerebral infarction affecting right dominant side; E11.42 Type 2 diabetes mellitus with diabetic polyneuropathy; L97.322 Non-pressure chronic ulcer of left ankle with fat layer exposed; I87.2 Venous insufficiency (chronic) (peripheral) ==

== ENCOUNTER 2019-07-03 00:36 | Day surgery (SDC) | payer MEDICARE, OTHER | END 2019-07-03 23:09 | disposition home or self-care (01) | LOC: WOUND 00:36 | DX: E11.621 Type 2 diabetes mellitus with foot ulcer (principal); E11.622 Type 2 diabetes mellitus with other skin ulcer; L97.525 Non-pressure chronic ulcer of other part of left foot with muscle involvement without evidence of necrosis; L97.322 Non-pressure chronic ulcer of left ankle with fat layer exposed; L97.821 Non-pressure chronic ulcer of other part of left lower leg limited to breakdown of skin; E11.51 Type 2 diabetes mellitus with diabetic peripheral angiopathy without gangrene; I73.9 Peripheral vascular disease, unspecified; I87.2 Venous insufficiency (chronic) (peripheral); E11.42 Type 2 diabetes mellitus with diabetic polyneuropathy; I11.0 Hypertensive heart disease with heart failure; I50.9 Heart failure, unspecified; Z86.73 Personal history of transient ischemic attack (TIA), and cerebral infarction without residual deficits; Z79.01 Long term (current) use of anticoagulants | CPT/HCPCS: 87071; 87075; 87077; 87186; 87205 ==

== ENCOUNTER 2019-07-25 21:18 | Observation (INO) | payer MEDICARE, OTHER ==
[~2019-07-25] VITALS: Ht 162.6 cm; Wt 109.8 kg
[2019-07-25 21:58] LABS: BASOPHILS ABSOLUTE AUTO 0.07 K/mm3 (0.00-0.23); BASOPHILS PERCENT AUTO 0 % (0-2); EOSINOPHILS ABSOLUTE AUTO 0.53 K/mm3 (0.00-0.68); EOSINOPHILS PERCENT AUTO 3 % (0-6); Hematocrit 33.3 % (33.0-51.0); Hemoglobin 11.1 g/dL (11.5-16.0); IMMATURE GRAN ABSOLUTE AUTO 0.25 K/mm3 (0.00-0.10); IMMATURE GRAN PERCENT AUTO 2 % (0-1); LYMPHOCYTES ABSOLUTE AUTO 2.94 K/mm3 (0.84-5.20); LYMPHOCYTES PERCENT AUTO 17 % (21-46); MONOCYTES ABSOLUTE AUTO 0.87 K/mm3 (0.16-1.47); MONOCYTES PERCENT AUTO 5 % (4-13); Mean Corpuscular HGB 29.1 pg (26.0-34.0); Mean Corpuscular HGB Conc 33.3 g/dL (31.5-36.5); Mean Corpuscular Volume 87 fL (80-100); Mean Platelet Volume 9.9 fL (9.1-12.4); NEUTROPHILS ABSOLUTE AUTO 12.26 K/mm3 (1.96-9.15); NEUTROPHILS PERCENT AUTO 73 % (41-73); Platelet Count 357 K/mm3 (150-400); RDW Coefficient Variation 15.9 % (11.7-14.2); RDW Standard Deviation 51.4 fL (35.1-46.3); Red Blood Cell Count 3.81 M/mm3 (3.80-5.20); White Blood Cell Count 16.92 K/mm3 (4.00-11.30)
[2019-07-25 22:14] LABS: Albumin, Blood 2.3 g/dL (3.4-5.0); Albumin/Globulin Ratio 0.4 (0.8-1.8); Bilirubin, Total 0.2 mg/dL (0.1-1.0); Bun/Creatinine Ratio 38.1 (12.0-20.0); Calcium, Blood 8.4 mg/dL (8.5-10.1); Creatinine, Blood 1.13 mg/dL (0.40-1.00); Globulin, Blood 5.4 g/dL (2.2-4.0); Potassium, Blood 3.8 mmol/L (3.5-5.5); Total Protein, Blood 7.7 g/dL (6.4-8.2)
[2019-07-26 01:45] LABS: Source, Urine Clean Catch
[2019-07-26 01:47] LABS: Appearance, Urine Cloudy (Clear); Bilirubin, Urine Neg (Neg); Blood, Urine 2+ (Neg); Color, Urine Yellow (P-Yellow); Glucose Qualitative, Urine 2+ (Neg); Ketones, Urine Neg (Neg); Leukocyte Esterase, Urine 3+ (Neg); Nitrite, Urine Neg (Neg); Protein, Urine 1+ (Neg); Urobilinogen, Urine NORM (Normal)
[2019-07-26 01:55] LABS: Bacteria Many /hpf; Red Blood Cells, Urine 0-2 /hpf (0-2); Squamous Epithelial Cells Mod /hpf (Few); White Blood Cells, Urine TNTC /hpf (0-5)
[2019-07-26] MEDS ORDERED: Bumetanide1 MG PO ×2 (03:16→03:17)
[2019-07-26 05:12] LABS: BASOPHILS ABSOLUTE AUTO 0.05 K/mm3 (0.00-0.23); BASOPHILS PERCENT AUTO 0 % (0-2); EOSINOPHILS ABSOLUTE AUTO 0.52 K/mm3 (0.00-0.68); EOSINOPHILS PERCENT AUTO 3 % (0-6); Hematocrit 29.2 % (33.0-51.0); Hemoglobin 9.6 g/dL (11.5-16.0); IMMATURE GRAN ABSOLUTE AUTO 0.27 K/mm3 (0.00-0.10); IMMATURE GRAN PERCENT AUTO 2 % (0-1); LYMPHOCYTES ABSOLUTE AUTO 2.76 K/mm3 (0.84-5.20); LYMPHOCYTES PERCENT AUTO 18 % (21-46); MONOCYTES ABSOLUTE AUTO 0.86 K/mm3 (0.16-1.47); MONOCYTES PERCENT AUTO 6 % (4-13); Mean Corpuscular HGB 28.3 pg (26.0-34.0); Mean Corpuscular HGB Conc 32.9 g/dL (31.5-36.5); Mean Corpuscular Volume 86 fL (80-100); Mean Platelet Volume 9.8 fL (9.1-12.4); NEUTROPHILS ABSOLUTE AUTO 10.91 K/mm3 (1.96-9.15); NEUTROPHILS PERCENT AUTO 71 % (41-73); Platelet Count 308 K/mm3 (150-400); RDW Coefficient Variation 15.9 % (11.7-14.2); RDW Standard Deviation 50.2 fL (35.1-46.3); Red Blood Cell Count 3.39 M/mm3 (3.80-5.20); White Blood Cell Count 15.37 K/mm3 (4.00-11.30)
[2019-07-26 05:48] LABS: Anion Gap 4 mmol/L (6-16); Blood Urea Nitrogen 38 mg/dL (8-24); Bun/Creatinine Ratio 38.6 (12.0-20.0); CO2, Blood 32 mmol/L (21-32); Calcium, Blood 8.1 mg/dL (8.5-10.1); Chloride, Blood 92 mmol/L (98-108); Creatinine, Blood 0.98 mg/dL (0.40-1.00); Glomerular Filtration Rate >60 (60-); Glucose, Blood 254 mg/dL (70-99); Potassium, Blood 3.5 mmol/L (3.5-5.5); Sodium, Blood 128 mmol/L (136-145)
--- NOTE | 2019-07-26 06:20 | NUR ---
SHIFT SUMMARY PT WAS A NEW ADMIT DURING THE NIGHT, ARRIVING ON THE FLOOR AT 0226. SHE WAS ADMITTED FOR HYPONATREMIA AND TX OF CHRONIC L FOOT ULCERS. PT IS A&O X 3, AND ON BEDREST. SHE DENIED ANY COMPLAINTS OF PAIN, NAUSEA OR SOB, THOUGH DOES HAVE CHRONIC NEUROPATHY IN HER BLE. VITALS WERE STABLE. PT RECEIVED NS @ 200 ML/HR DURING THE NIGHT. NO OTHER ACUTE CHANGES IN PT CONDITION NOTED. WILL CONTINUE TO MONITOR AND TREAT PER EMAR UNTIL HAND OFF TO DAY SHIFT RN.
--- NOTE | 2019-07-26 20:02 | NUR ---
SHIFT SUMMARY PATIENT A&O X4, SOMEWHAT SLOW TO ANSWER IN MORNING. PT SEEMED MORE AWAKE AND HAD A QUICKER RESPONSE TIME TOWARDS THE END OF THE SHIFT. ORDERS FOR WOUND CARE OBTAINED FROM THE WOUND CLINIC. 3X LLE WOUNDS CLEANED WITH NS. CALCIUM ALGINATE PAD APPLIED TO EACH WOUND BED AND MEPILEX WITH BORDER APPLIED. PICTURE OF L FOOT AND L ANKLE WOUNDS PRINTED, PLACED ON WOUND FORM, SIGNED, AND PLACED IN CHART. PT/OT EVALUATED PATIENT. PT PIVOTS TO COMMODE/CHAIR WITH GAIT BELT AND RLE PROSTHESIS APPLIED. PT DENIES PAIN, DISCOMFORT, SOB, OR NAUSEA.
--- NOTE | 2019-07-27 04:41 | NUR ---
SHIFT SUMMARY A/O, ABLE TO MAKE NEEDS KNOWN. COOPERATIVE WITH CARE. CALLS AND ANSWERS QUESTIONS APPROPRIATELY. NO C/O PAIN/DISCOMFORT. DIFFICULT TO AROUSE FOR MEDICATION ADMINISTRATION. ONCE PATIENT CAME AROUND, STATED THAT AFTER SHE GOES TO SLEEP IT IS REALLY DIFFICULT TO WAKE HER. VOIDED USING BEDPAN. ABLE TO PULL SELF UP AND HAS GOOD BED MOBILITY. VSS. NO ACUTE CHANGES NOTED OVERNIGHT. BED REMAINS IN LOWEST POSITION. CALL LIGHT AND BELONGINGS WITHIN REACH. WCTM. REPORT TO ONCOMING RN.
[2019-07-27 05:00] LABS: BASOPHILS ABSOLUTE AUTO 0.04 K/mm3 (0.00-0.23); BASOPHILS PERCENT AUTO 0 % (0-2); EOSINOPHILS ABSOLUTE AUTO 0.37 K/mm3 (0.00-0.68); EOSINOPHILS PERCENT AUTO 2 % (0-6); Hematocrit 29.9 % (33.0-51.0); Hemoglobin 9.7 g/dL (11.5-16.0); IMMATURE GRAN ABSOLUTE AUTO 0.16 K/mm3 (0.00-0.10); IMMATURE GRAN PERCENT AUTO 1 % (0-1); LYMPHOCYTES ABSOLUTE AUTO 3.18 K/mm3 (0.84-5.20); LYMPHOCYTES PERCENT AUTO 21 % (21-46); MONOCYTES ABSOLUTE AUTO 0.97 K/mm3 (0.16-1.47); MONOCYTES PERCENT AUTO 6 % (4-13); Mean Corpuscular HGB 28.5 pg (26.0-34.0); Mean Corpuscular HGB Conc 32.4 g/dL (31.5-36.5); Mean Corpuscular Volume 88 fL (80-100); Mean Platelet Volume 9.6 fL (9.1-12.4); NEUTROPHILS ABSOLUTE AUTO 10.55 K/mm3 (1.96-9.15); NEUTROPHILS PERCENT AUTO 69 % (41-73); Platelet Count 323 K/mm3 (150-400); RDW Coefficient Variation 15.7 % (11.7-14.2); RDW Standard Deviation 50.4 fL (35.1-46.3); White Blood Cell Count 15.27 K/mm3 (4.00-11.30)
[2019-07-27 05:20] LABS: Albumin, Blood 2.1 g/dL (3.4-5.0); Albumin/Globulin Ratio 0.4 (0.8-1.8); Bilirubin, Total 0.2 mg/dL (0.1-1.0); Bun/Creatinine Ratio 29.2 (12.0-20.0); Calcium, Blood 8.7 mg/dL (8.5-10.1); Creatinine, Blood 1.06 mg/dL (0.40-1.00); Globulin, Blood 4.8 g/dL (2.2-4.0); Potassium, Blood 3.4 mmol/L (3.5-5.5); Total Protein, Blood 6.9 g/dL (6.4-8.2)
[2019-07-27] MEDS ORDERED: LEVFLO500 PO (11:24)
--- NOTE | 2019-07-27 11:37 | NUR ---
PATIENT TO DISCHARGE . IV REMOVED. NO SS OF INFECTION NOTED. NURSE WENT OVER DISCHARGE INSTRUCTIONS WITH PATIENT . MEDS FAXED TO [facility] PER PATIENT. DOCTOR TO CALLED TO SCHEDULE FOLLOW UP WITH PATIENT.
== END 2019-07-27 11:51 | disposition home health service (06) ==
LOC: ER 21:18 → MEDS 21:19 → ENPENDDIS 07-27 10:47 → MEDS 07-27 11:51
PROVIDERS: Emergency Medicine; Internal Medicine; Physician Assistant; ADMIT Hospitalist
DX: A41.9 Sepsis, unspecified organism (principal); G92 Toxic encephalopathy; E87.1 Hypo-osmolality and hyponatremia; D72.829 Elevated white blood cell count, unspecified; S81.802A Unspecified open wound, left lower leg, initial encounter; I50.30 Unspecified diastolic (congestive) heart failure; J44.9 Chronic obstructive pulmonary disease, unspecified; E11.22 Type 2 diabetes mellitus with diabetic chronic kidney disease; N18.3 Chronic kidney disease, stage 3 (moderate); E11.51 Type 2 diabetes mellitus with diabetic peripheral angiopathy without gangrene; I73.9 Peripheral vascular disease, unspecified; G40.909 Epilepsy, unspecified, not intractable, without status epilepticus; K21.9 Gastro-esophageal reflux disease without esophagitis; F32.9 Major depressive disorder, single episode, unspecified; Z86.73 Personal history of transient ischemic attack (TIA), and cerebral infarction without residual deficits; Z99.81 Dependence on supplemental oxygen; Z87.891 Personal history of nicotine dependence; Z79.4 Long term (current) use of insulin; Z79.82 Long term (current) use of aspirin; Z79.02 Long term (current) use of antithrombotics/antiplatelets; Z79.899 Other long term (current) drug therapy; Z88.6 Allergy status to analgesic agent; Z88.8 Allergy status to other drugs, medicaments and biological substances; Z88.5 Allergy status to narcotic agent; Z88.0 Allergy status to penicillin; Z89.511 Acquired absence of right leg below knee
CPT/HCPCS: 36415; 71045; 73620; 80048; 80053; 81001; 82947; 83605; 84145; 85025; 87040; 87086; 93005; 93010; 96361; 96365; 96366; 96367; 96372; 96375; 97116; 97162; 97166; 97530; 97535; 99285-25; G0378; J1650; J1956; J2405; J3370; J7030; J7050; P9612

== ENCOUNTER 2019-08-04 02:25 | Day surgery (SDC) | payer MEDICARE, OTHER ==
[~2019-08-04 02:25] MED LIST changes: +Bumetanide1 MG PO
== END 2019-08-04 22:38 | disposition home or self-care (01) ==
LOC: WOUND
DX: T87.89 Other complications of amputation stump (principal); E11.621 Type 2 diabetes mellitus with foot ulcer; E11.622 Type 2 diabetes mellitus with other skin ulcer; L97.522 Non-pressure chronic ulcer of other part of left foot with fat layer exposed; L97.322 Non-pressure chronic ulcer of left ankle with fat layer exposed; L97.822 Non-pressure chronic ulcer of other part of left lower leg with fat layer exposed; E11.51 Type 2 diabetes mellitus with diabetic peripheral angiopathy without gangrene; I73.9 Peripheral vascular disease, unspecified; E11.42 Type 2 diabetes mellitus with diabetic polyneuropathy; I11.0 Hypertensive heart disease with heart failure; I50.9 Heart failure, unspecified; I87.2 Venous insufficiency (chronic) (peripheral); Z86.73 Personal history of transient ischemic attack (TIA), and cerebral infarction without residual deficits; Z89.412 Acquired absence of left great toe; Z89.422 Acquired absence of other left toe(s)

== ENCOUNTER 2019-08-08 09:47 | Inpatient (IN) | payer MEDICARE, OTHER ==
[~2019-08-08] VITALS: Ht 165 cm; Wt 107.1 kg
[2019-08-08 10:31] LABS: BASOPHILS ABSOLUTE AUTO 0.06 K/mm3 (0.00-0.23); BASOPHILS PERCENT AUTO 0 % (0-2); EOSINOPHILS ABSOLUTE AUTO 0.46 K/mm3 (0.00-0.68); EOSINOPHILS PERCENT AUTO 3 % (0-6); Hematocrit 33.9 % (33.0-51.0); IMMATURE GRAN ABSOLUTE AUTO 0.17 K/mm3 (0.00-0.10); IMMATURE GRAN PERCENT AUTO 1 % (0-1); LYMPHOCYTES ABSOLUTE AUTO 3.14 K/mm3 (0.84-5.20); LYMPHOCYTES PERCENT AUTO 18 % (21-46); MONOCYTES ABSOLUTE AUTO 1.07 K/mm3 (0.16-1.47); MONOCYTES PERCENT AUTO 6 % (4-13); Mean Corpuscular HGB 28.4 pg (26.0-34.0); Mean Corpuscular HGB Conc 32.4 g/dL (31.5-36.5); Mean Corpuscular Volume 87 fL (80-100); Mean Platelet Volume 9.4 fL (9.1-12.4); NEUTROPHILS ABSOLUTE AUTO 12.67 K/mm3 (1.96-9.15); NEUTROPHILS PERCENT AUTO 72 % (41-73); Platelet Count 416 K/mm3 (150-400); RDW Coefficient Variation 15.9 % (11.7-14.2); RDW Standard Deviation 50.4 fL (35.1-46.3); Red Blood Cell Count 3.88 M/mm3 (3.80-5.20); White Blood Cell Count 17.57 K/mm3 (4.00-11.30)
[2019-08-08 10:47] LABS: Albumin, Blood 2.4 g/dL (3.4-5.0); Albumin/Globulin Ratio 0.4 (0.8-1.8); Bilirubin, Total 0.3 mg/dL (0.1-1.0); Bun/Creatinine Ratio 32.7 (12.0-20.0); Calcium, Blood 9.2 mg/dL (8.5-10.1); Creatinine, Blood 1.5 mg/dL (0.40-1.00); Globulin, Blood 5.6 g/dL (2.2-4.0); Potassium, Blood 3.9 mmol/L (3.5-5.5)
[2019-08-08] MEDS ORDERED: LEVE500 PO (13:00)
[2019-08-08] MEDS ORDERED: TRAM50 PO (13:01)
[2019-08-08 14:30] LABS: Source, Urine Clean Catch
[2019-08-08 14:43] LABS: Appearance, Urine Hazy (Clear); Bilirubin, Urine Neg (Neg); Blood, Urine 2+ (Neg); Color, Urine Yellow (P-Yellow); Glucose Qualitative, Urine Neg (Neg); Ketones, Urine Neg (Neg); Leukocyte Esterase, Urine 3+ (Neg); Nitrite, Urine Neg (Neg); Protein, Urine 2+ (Neg); Specific Gravity, Urine 1.015 (1.003-1.022); Urobilinogen, Urine NORM (Normal)
[2019-08-08 14:57] LABS: U Amphetamine Screen Not Detected; U Barbituate Screen Not Detected; U Benzodiazapine Screen Not Detected; U Buprenorphine Screen Not Detected; U Cannabinoids Screen Not Detected; U Cocaine Screen Not Detected; U Methadone Screen Not Detected; U Methamphetamine Screen Not Detected; U Opiates Screen Not Detected; U Oxycodone Screen Not Detected; U Phencyclidine Screen Not Detected
[2019-08-08 14:58] LABS: U Propoxyphene Screen Not Detected
[2019-08-08 15:03] LABS: White Blood Cells, Urine 50-100 /hpf (0-5)
[2019-08-08 15:04] LABS: Bacteria Many /hpf; Red Blood Cells, Urine 0-2 /hpf (0-2); Squamous Epithelial Cells Mod /hpf (Few)
--- NOTE | 2019-08-08 18:23 | NUR ---
ARRIVES FROM E.R. ABOUT 163. BLOOD SUGAR TAKEN 1641 AND WAS 66. GIVEN O.J AND PEANUT BUTTER AND CRACKERS. ALERT. ORIENTED. ON 2 LPM OXYGEN VIA N/C. LUNGS COARSE IN BASES. 3 WOUNDS TO LEFT LEG DRESSINGS TAKEN OFF AND PICTURES TAKEN AND REDRESSED. BLOOD PRESSURE IN 90'S WITH HX OF HYPOTENSION. DOES NOT KNOW WHAT MEDS SHE TAKES. DRILLING ENGINEERING MANAGER TO RETAKE BLD PRESS AND CBG. DINNER TRAY ORDERED. TELE JUST ARRIVED AND WILL PLACE. WCTM
--- NOTE | 2019-08-09 04:19 | NUR ---
SHIFT SUMMARY PT HAS RESTED T/O THE SHIFT. SHE HAS HAD A BM THIS SHIFT AND USES THE BED [place] WITH ONE PERSON ASSIST. PLAN IS FOR UPPER ENDOSCOPY TODAY. DIET ORDERED. PT AWARE OF POC. SHE HAS HAD NO COMPLAINTS T/O THE SHIFT AND DENIES PAIN. DRESSING INTACT TO LLE WOUNDS. VITALS STABLE. WILL CONTINUE TO MONITOR AND REPORT TO ONCOMING RN.
[2019-08-09 04:50] LABS: Hematocrit 31.1 % (33.0-51.0); Hemoglobin 9.9 g/dL (11.5-16.0); Mean Corpuscular HGB Conc 31.8 g/dL (31.5-36.5); Mean Corpuscular Volume 88 fL (80-100); Mean Platelet Volume 9.5 fL (9.1-12.4); Platelet Count 382 K/mm3 (150-400); RDW Coefficient Variation 15.8 % (11.7-14.2); Red Blood Cell Count 3.53 M/mm3 (3.80-5.20); White Blood Cell Count 15.48 K/mm3 (4.00-11.30)
[2019-08-09 04:53] LABS: PO2 Arterial 61.6 mmHg (80-100); pH Blood Arterial 7.45 (7.35-7.45)
[2019-08-09 05:14] LABS: Bun/Creatinine Ratio 35.3 (12.0-20.0); Calcium, Blood 8.8 mg/dL (8.5-10.1); Creatinine, Blood 1.19 mg/dL (0.40-1.00); Potassium, Blood 3.8 mmol/L (3.5-5.5)
--- NOTE | 2019-08-09 12:48 | NUR ---
TO DAY SURGERY PER KANWAL, ACCOMPANIED BY FAMILY
--- NOTE | 2019-08-09 13:00 | NUR ---
INTO SDS VIA [employer]. PT A&OX3. DENIES PAIN OR NAUSEA. HISTORY AND ALLERGIES REVIEWED. NPO STATUS CONFIRMED. PT O2 DEPENDENT. MOIST COUGH NOTED-NONPRODUCTIVE AT THIS TIME. LUNGS DIMINISHED AND TIGHT LEFT>RIGHT. DUO NEB GIVEN. PT IS CURRENT EVERY DAY SMOKER. CBG 70.
--- NOTE | 2019-08-09 13:34 | NUR ---
08/09/19 1334 Sushant Temple See Anesthesia record. 3-LEAD EKG REVIEWED WITH PHYSICIAN PRIOR TO START OF PROCEDURE.Patient to ENDO 1History, Chart, Medications and Allergies reviewed before start of procedure.MONITOR INTACT WITH CONTINUOUS PULSE OXIMETRY AND INTERMITTENT BP.O2 VIA N/C INTACT THROUGHOUT SEDATION/PROCEDURE.
--- NOTE | 2019-08-09 14:14 | NUR ---
PATIENT ASKED DAUGHTER TO TAKE HOME TEETH. DAUGHTER TOOK HOME IN A DENTURE CUP
--- NOTE | 2019-08-09 14:28 | NUR ---
1420 return to room patient states feels sleepy and hungry, denies any pain
--- NOTE | 2019-08-09 17:29 | NUR ---
Spiritual Care initial note: Justin was alone in room and welcoming of companionship. She is non-catholic, but responded well to theraputic listening and emotional affirmation. She admits she is wooried about her dx. The most worrisome part of this, she says, is "I have lost so much weight so fast." She does appear quite weak. I provided asurance of care and attention and helped her explore some of her innate coping skills. I will remain available.
--- NOTE | 2019-08-09 17:40 | NUR ---
SUMMARY PATIENT DENIES ABD PAIN OR NAUSEA. PATIENT STATES NO FEELING IN LEFT LEG DUE TO NEUROPATHY. LEFT FOOT DRESSING CLEAN, DRY AND INTACT. PATIENT USING IS INDEPENDENTLY WITH GOOD EFFORT.
--- NOTE | 2019-08-09 18:21 | NUR ---
PATIENT WITH REDNESS UNDER BILATERAL BREASTS AND PANNUS OF ABDOMEN. SMALL 1 CM OPEN AREA UNDER LEFT ABD PANNUS- SPOKE WITH DR CERRATO AND ORDERS OBTAINED
--- NOTE | 2019-08-10 04:07 | NUR ---
SHIFT SUMMARY: 64 Y/O OBESE FEMALE RESTED COMFORTABLY ALL SHIFT, DENIES PAIN OR NAUSEA, LEFT FOOT ERLIN WRAP DRESSING DRY AND INTACT, REDNESS AND EXORICATED SKIN NOTED UNDER RIGHT BREAST AND LEFT PANNUS WITH NYSTATIN POWDER APPLIED TO SITE, HAPPY AND COOPERATIVE, TELEMETRY REFLECTS NSR WITH HEART RATE 76 PER STEVEN (CALL CENTER SUPPORT REPRESENTATIVE), HAPPY AND COOPERATIVE, CONTACT ISOLATION MAINTAINED FOR LEFT FOOT MRSA, BED LOW POSITION, CALL LIGHT AT SIDE.
[2019-08-10 05:08] LABS: BASOPHILS ABSOLUTE AUTO 0.03 K/mm3 (0.00-0.23); BASOPHILS PERCENT AUTO 0 % (0-2); EOSINOPHILS ABSOLUTE AUTO 0.41 K/mm3 (0.00-0.68); EOSINOPHILS PERCENT AUTO 3 % (0-6); Hematocrit 30.4 % (33.0-51.0); Hemoglobin 9.7 g/dL (11.5-16.0); IMMATURE GRAN PERCENT AUTO 1 % (0-1); LYMPHOCYTES ABSOLUTE AUTO 2.43 K/mm3 (0.84-5.20); LYMPHOCYTES PERCENT AUTO 20 % (21-46); MONOCYTES ABSOLUTE AUTO 0.84 K/mm3 (0.16-1.47); MONOCYTES PERCENT AUTO 7 % (4-13); Mean Corpuscular HGB 28.3 pg (26.0-34.0); Mean Corpuscular HGB Conc 31.9 g/dL (31.5-36.5); Mean Corpuscular Volume 89 fL (80-100); Mean Platelet Volume 9.3 fL (9.1-12.4); NEUTROPHILS ABSOLUTE AUTO 8.24 K/mm3 (1.96-9.15); NEUTROPHILS PERCENT AUTO 68 % (41-73); Platelet Count 386 K/mm3 (150-400); RDW Coefficient Variation 15.6 % (11.7-14.2); RDW Standard Deviation 50.5 fL (35.1-46.3); Red Blood Cell Count 3.43 M/mm3 (3.80-5.20); White Blood Cell Count 12.05 K/mm3 (4.00-11.30)
[2019-08-10 06:10] LABS: Bun/Creatinine Ratio 27.6 (12.0-20.0); Calcium, Blood 8.8 mg/dL (8.5-10.1); Creatinine, Blood 1.16 mg/dL (0.40-1.00); Potassium, Blood 3.8 mmol/L (3.5-5.5)
--- NOTE | 2019-08-10 10:15 | NUR ---
Physician notified Received phone orders for DVT prophylaxis.
--- NOTE | 2019-08-10 17:59 | NUR ---
Shift Summary A/O, pleasant and cooperative with care. Able to make needs known. Pt has been up in chair and dangling for meals. No c/o pain, N/V/D. L foot dressing C/D/I. No other acute changes this shift. VSS, afebrile.
[2019-08-10 18:29] LABS: Vancomycin, Trough 15.9 ug/mL (5.0-10.0)
--- NOTE | 2019-08-11 04:22 | NUR ---
SHIFT SUMMARY: 64 Y/O OBESE FEMALE RESTED COMFORTABLY IN BED ALL SHIFT, DENIES PAIN OR NAUSEA, LEFT FOOT DRESSING DRY AND INTACT, UTILIZING BED [place] ALL SHIFT, DECREASED REDNESS UNDER RIGHT BREAST AND LEFT ABD PANNUS NOTED AFTER NYSTATIN CREAM APPLIED, HAPPY AND COOPERATIVE, TELEMETRY REFLECTS NSR, BED LOW POSITION, CALL LIGHT AT SIDE.
[2019-08-11 04:54] LABS: BASOPHILS ABSOLUTE AUTO 0.04 K/mm3 (0.00-0.23); BASOPHILS PERCENT AUTO 0 % (0-2); EOSINOPHILS ABSOLUTE AUTO 0.37 K/mm3 (0.00-0.68); EOSINOPHILS PERCENT AUTO 3 % (0-6); Hematocrit 31.4 % (33.0-51.0); Hemoglobin 9.8 g/dL (11.5-16.0); IMMATURE GRAN ABSOLUTE AUTO 0.13 K/mm3 (0.00-0.10); IMMATURE GRAN PERCENT AUTO 1 % (0-1); LYMPHOCYTES ABSOLUTE AUTO 2.74 K/mm3 (0.84-5.20); LYMPHOCYTES PERCENT AUTO 24 % (21-46); MONOCYTES ABSOLUTE AUTO 0.86 K/mm3 (0.16-1.47); MONOCYTES PERCENT AUTO 8 % (4-13); Mean Corpuscular HGB Conc 31.2 g/dL (31.5-36.5); Mean Corpuscular Volume 90 fL (80-100); Mean Platelet Volume 9.2 fL (9.1-12.4); NEUTROPHILS ABSOLUTE AUTO 7.32 K/mm3 (1.96-9.15); NEUTROPHILS PERCENT AUTO 64 % (41-73); Platelet Count 394 K/mm3 (150-400); RDW Coefficient Variation 15.5 % (11.7-14.2); RDW Standard Deviation 51.6 fL (35.1-46.3); White Blood Cell Count 11.46 K/mm3 (4.00-11.30)
[2019-08-11 05:14] LABS: Bun/Creatinine Ratio 26.4 (12.0-20.0); Creatinine, Blood 1.1 mg/dL (0.40-1.00); Potassium, Blood 3.8 mmol/L (3.5-5.5)
[2019-08-11] MEDS ORDERED: ACET325 PO (12:40)
[2019-08-11] MEDS ORDERED: Aspir 8181 MG PO (12:41)
[2019-08-11] MEDS ORDERED: Bumetanide2 MG PO (12:42)
[2019-08-11] MEDS ORDERED: CARV3.125 PO (12:42)
[2019-08-11] MEDS ORDERED: CLOP75 PO (12:43)
[2019-08-11] MEDS ORDERED: POTA20PAC PO (12:45)
[2019-08-11] MEDS ORDERED: Pedi-Dri 100,0060 GM TOP (12:47)
[2019-08-11] MEDS ORDERED: SANTYL30 GM TOP (12:48)
[2019-08-11] MEDS ORDERED: SPIR25 PO (12:49)
[2019-08-11] MEDS ORDERED: ACULAR5 ML BOTHEYES (13:50)
[2019-08-11] MEDS ORDERED: NITR100CA PO (13:52)
--- NOTE | 2019-08-11 15:23 | NUR ---
DISCHARGE SUMMARY PATIENT DISCHARGED WITH HER SON TO THEIR VEHICLE. THIS RN ESCORTED PATIENT OUT VIA W/C TO THE VEHICLE. DRESSING OF WOUND CHANGED, PICTURES TAKEN. IV REMOVED. APPOINTMENTS WITH HER PCP AND WOUND CLINIC SCHEDULED. FOLLOW UP APPOINTMENTS SCHEDULED AND REVIEWED WITH PATIENT.
== END 2019-08-11 14:07 | disposition home health service (06) | DRG 871 ==
LOC: ER 09:47 → MEDS 15:09 → ENPENDDIS 08-11 11:30 → MEDS 08-11 14:07
PROVIDERS: Emergency Medicine; Internal Medicine; Internal Medicine Gastroenterology; ADMIT Internal Medicine
PROC: 0DB68ZX Excision of Stomach, Via Natural or Artificial Opening Endoscopic, Diagnostic (ICD-10-PCS; principal; 2019-08-09 13:00)
DX: A41.02 Sepsis due to Methicillin resistant Staphylococcus aureus (principal); J96.21 Acute and chronic respiratory failure with hypoxia; G92 Toxic encephalopathy; J96.22 Acute and chronic respiratory failure with hypercapnia; N17.9 Acute kidney failure, unspecified; E87.1 Hypo-osmolality and hyponatremia; J98.11 Atelectasis; N39.0 Urinary tract infection, site not specified; E66.2 Morbid (severe) obesity with alveolar hypoventilation; L97.422 Non-pressure chronic ulcer of left heel and midfoot with fat layer exposed; L97.821 Non-pressure chronic ulcer of other part of left lower leg limited to breakdown of skin; Z79.02 Long term (current) use of antithrombotics/antiplatelets; Z79.82 Long term (current) use of aspirin; Z79.4 Long term (current) use of insulin; J44.9 Chronic obstructive pulmonary disease, unspecified; E11.22 Type 2 diabetes mellitus with diabetic chronic kidney disease; N18.3 Chronic kidney disease, stage 3 (moderate); G40.909 Epilepsy, unspecified, not intractable, without status epilepticus; F32.9 Major depressive disorder, single episode, unspecified; E11.51 Type 2 diabetes mellitus with diabetic peripheral angiopathy without gangrene; Z86.73 Personal history of transient ischemic attack (TIA), and cerebral infarction without residual deficits; F17.210 Nicotine dependence, cigarettes, uncomplicated; Z99.81 Dependence on supplemental oxygen; Z68.39 Body mass index [BMI] 39.0-39.9, adult; E86.0 Dehydration; Z89.511 Acquired absence of right leg below knee; K21.0 Gastro-esophageal reflux disease with esophagitis; E11.622 Type 2 diabetes mellitus with other skin ulcer; E11.621 Type 2 diabetes mellitus with foot ulcer; L97.522 Non-pressure chronic ulcer of other part of left foot with fat layer exposed
CPT/HCPCS: 36415; 36600; 70450; 71046; 80048; 80053; 80202; 81001; 82140; 82803; 82947; 83605; 83690; 83880; 84145; 85025; 85027; 86850; 86900; 86901; 87040; 87077; 87086; 87147; 87186; 88305; 88342; 93005; 93010; 96365; 96366; 96368; 96375; 97161; 97166; 97530; 97535; 99285-25; C9113; J1650; J1815; J1956; J2250; J2310; J2704; J3370; J7030; J7050; J7120; J7799

== ENCOUNTER 2019-08-18 00:46 | Day surgery (SDC) | payer MEDICARE, OTHER ==
[~2019-08-18 00:46] MED LIST changes: +ACULAR5 ML BOTHEYES; +Aspir 8181 MG PO; +Bumetanide2 MG PO; +NITR100CA PO; +POTA20PAC PO
== END 2019-08-18 23:24 | disposition home or self-care (01) ==
LOC: WOUND
DX: E11.621 Type 2 diabetes mellitus with foot ulcer (principal); E11.622 Type 2 diabetes mellitus with other skin ulcer; L97.522 Non-pressure chronic ulcer of other part of left foot with fat layer exposed; L97.322 Non-pressure chronic ulcer of left ankle with fat layer exposed; L97.822 Non-pressure chronic ulcer of other part of left lower leg with fat layer exposed; E11.51 Type 2 diabetes mellitus with diabetic peripheral angiopathy without gangrene; I73.9 Peripheral vascular disease, unspecified; I87.2 Venous insufficiency (chronic) (peripheral); I13.2 Hypertensive heart and chronic kidney disease with heart failure and with stage 5 chronic kidney disease, or end stage renal disease; E11.22 Type 2 diabetes mellitus with diabetic chronic kidney disease; N18.6 End stage renal disease; I50.9 Heart failure, unspecified

== ENCOUNTER 2019-08-21 05:43 | Emergency (ER) | payer MEDICARE, OTHER ==
[~2019-08-21] VITALS: Ht 165.1 cm; Wt 108.9 kg
[2019-08-21] MEDS ORDERED: Colace250 MG PO (09:22)
== END 2019-08-21 10:10 | disposition home or self-care (01) ==
LOC: ER 05:43
DX: K59.00 Constipation, unspecified (principal); E11.22 Type 2 diabetes mellitus with diabetic chronic kidney disease; N18.3 Chronic kidney disease, stage 3 (moderate); F32.9 Major depressive disorder, single episode, unspecified; J44.9 Chronic obstructive pulmonary disease, unspecified; K21.9 Gastro-esophageal reflux disease without esophagitis; Z86.73 Personal history of transient ischemic attack (TIA), and cerebral infarction without residual deficits; Z88.5 Allergy status to narcotic agent; Z88.8 Allergy status to other drugs, medicaments and biological substances; Z88.6 Allergy status to analgesic agent; Z88.0 Allergy status to penicillin; Z79.899 Other long term (current) drug therapy; Z79.4 Long term (current) use of insulin; Z79.82 Long term (current) use of aspirin; Z79.02 Long term (current) use of antithrombotics/antiplatelets
CPT/HCPCS: 74022; 99283-25

== ENCOUNTER 2019-09-27 15:24 | Inpatient (IN) | payer MEDICARE, OTHER ==
[~2019-09-27] VITALS: Ht 165.1 cm; Wt 105.6 kg
[~2019-09-27 15:24] MED LIST changes: +Colace250 MG PO; -OMEPRAZOLE20 MG PO; +PANT40 PO
[2019-09-27 16:23] LABS: BASOPHILS ABSOLUTE AUTO 0.05 K/mm3 (0.00-0.23); BASOPHILS PERCENT AUTO 0 % (0-2); EOSINOPHILS ABSOLUTE AUTO 0.51 K/mm3 (0.00-0.68); EOSINOPHILS PERCENT AUTO 3 % (0-6); Hematocrit 37.7 % (33.0-51.0); Hemoglobin 11.8 g/dL (11.5-16.0); IMMATURE GRAN ABSOLUTE AUTO 0.13 K/mm3 (0.00-0.10); IMMATURE GRAN PERCENT AUTO 1 % (0-1); LYMPHOCYTES ABSOLUTE AUTO 3.46 K/mm3 (0.84-5.20); LYMPHOCYTES PERCENT AUTO 23 % (21-46); MONOCYTES ABSOLUTE AUTO 0.81 K/mm3 (0.16-1.47); MONOCYTES PERCENT AUTO 5 % (4-13); Mean Corpuscular HGB 27.8 pg (26.0-34.0); Mean Corpuscular HGB Conc 31.3 g/dL (31.5-36.5); Mean Corpuscular Volume 89 fL (80-100); Mean Platelet Volume 9.8 fL (9.1-12.4); NEUTROPHILS ABSOLUTE AUTO 10.33 K/mm3 (1.96-9.15); NEUTROPHILS PERCENT AUTO 68 % (41-73); Platelet Count 420 K/mm3 (150-400); RDW Coefficient Variation 16.9 % (11.7-14.2); RDW Standard Deviation 54.4 fL (35.1-46.3); Red Blood Cell Count 4.24 M/mm3 (3.80-5.20); White Blood Cell Count 15.29 K/mm3 (4.00-11.30)
[2019-09-27 16:37] LABS: Albumin, Blood 2.3 g/dL (3.4-5.0); Albumin/Globulin Ratio 0.4 (0.8-1.8); Bilirubin, Total 0.2 mg/dL (0.1-1.0); Bun/Creatinine Ratio 29.5 (12.0-20.0); Creatinine, Blood 1.29 mg/dL (0.40-1.00); Globulin, Blood 5.9 g/dL (2.2-4.0); Potassium, Blood 3.2 mmol/L (3.5-5.5); Total Protein, Blood 8.2 g/dL (6.4-8.2)
[2019-09-27 17:04] LABS: Source, Urine Catheter
[2019-09-27 17:50] LABS: Bilirubin, Urine Neg (Neg); Blood, Urine 1+ (Neg); Glucose Qualitative, Urine 2+ (Neg); Ketones, Urine Neg (Neg); Leukocyte Esterase, Urine 3+ (Neg); Nitrite, Urine Neg (Neg); Protein, Urine Neg (Neg); Urobilinogen, Urine NORM (Normal)
[2019-09-27 18:00] LABS: Appearance, Urine Hazy (Clear); Color, Urine Pale Yellow (P-Yellow)
[2019-09-27 18:01] LABS: Squamous Epithelial Cells Rare /hpf (Few); White Blood Cells, Urine TNTC /hpf (0-5)
[2019-09-27 18:02] LABS: Bacteria Mod /hpf
[2019-09-27] MEDS ORDERED: METO2.5 PO (18:19)
--- NOTE | 2019-09-27 22:00 | NUR ---
ADMISSION/ASSUMPTION OF CARE PATIENT ARRIVED TO UNIT AT 2100. ARRIVED VIA ED BED ACCOMPANIED BY ED NURSE. PT DENIES PAIN AND DISCOMFORT. ALERT AND ORIENTED X 4. VITALS STABLE. 4L O2 NC, O2 94-97%. DENIES DYSPNEA OR SOB. TWO OPEN WOUNDS NOTED TO LEFT FOOT. WOUNDS CLEANSED WITH SOAP AND WATER. FOAM DRESSING APPLIED, C/D/I. SLIGHT REDNESS TO LEFT LEG/WHEELER, TENDER TO TOUCH. PATIENT STATES TENDERNESS/REDNESS TO LEG HAS BEEN CHRONIC PROBLEM. WOUND/LEGS PHOTOGRAPHED, PICTURES IN CHART. BILATERAL PERIPHERAL IVS PATENT AND INTACT. FLUIDS, ANTIBIOTICS, ELECTROLYTE REPLACEMENT INFUSING WITHOUT DIFFICULTY. CHAN PATENT AND INTACT. DRAINAGE LIGHT YELLOW, CLOUDY URINE. BED IN LOWEST POSITION, CALL LIGHT IN REACH, MAKES NEEDS KNOWN. WILL CONTINUE TO MONITOR FOR PAIN, SAFETY, COMFORT. PRANAV SOTO SN
[2019-09-28 00:27] LABS: Adenovirus Not Detected (NOT DETECT); Bordetella pertussis Not Detected (NOT DETECT); Chlamydophila pneumoniae Not Detected (NOT DETECT); Coronavirus 229E Not Detected (NOT DETECT); Coronavirus HKU1 Not Detected (NOT DETECT); Coronavirus NL63 Not Detected (NOT DETECT); Coronavirus OC43 Not Detected (NOT DETECT); Human Metapneumovirus Not Detected (NOT DETECT); Human Rhinovirus/Enterovirus Not Detected (NOT DETECT); Influenza A Not Detected (NOT DETECT); Influenza A/2009-H1 Not Detected (NOT DETECT); Influenza A/H1 Not Detected (NOT DETECT); Influenza A/H3 Not Detected (NOT DETECT); Influenza B Not Detected (NOT DETECT); Mycoplasma pneumoniae Not Detected (NOT DETECT); Parainfluenza Virus 1 Not Detected (NOT DETECT); Parainfluenza Virus 2 Not Detected (NOT DETECT); Parainfluenza Virus 3 Not Detected (NOT DETECT); Parainfluenza Virus 4 Not Detected (NOT DETECT); Respiratory Syncytial Virus Not Detected (NOT DETECT)
[2019-09-28 03:23] LABS: BASOPHILS ABSOLUTE AUTO 0.06 K/mm3 (0.00-0.23); BASOPHILS PERCENT AUTO 0 % (0-2); EOSINOPHILS ABSOLUTE AUTO 0.44 K/mm3 (0.00-0.68); EOSINOPHILS PERCENT AUTO 3 % (0-6); Hematocrit 31.3 % (33.0-51.0); Hemoglobin 9.7 g/dL (11.5-16.0); IMMATURE GRAN ABSOLUTE AUTO 0.09 K/mm3 (0.00-0.10); IMMATURE GRAN PERCENT AUTO 1 % (0-1); LYMPHOCYTES PERCENT AUTO 24 % (21-46); MONOCYTES ABSOLUTE AUTO 0.96 K/mm3 (0.16-1.47); MONOCYTES PERCENT AUTO 6 % (4-13); Mean Corpuscular HGB 27.8 pg (26.0-34.0); Mean Corpuscular Volume 90 fL (80-100); Mean Platelet Volume 9.7 fL (9.1-12.4); NEUTROPHILS ABSOLUTE AUTO 9.85 K/mm3 (1.96-9.15); NEUTROPHILS PERCENT AUTO 66 % (41-73); Platelet Count 338 K/mm3 (150-400); RDW Coefficient Variation 17.1 % (11.7-14.2); RDW Standard Deviation 55.9 fL (35.1-46.3); Red Blood Cell Count 3.49 M/mm3 (3.80-5.20)
[2019-09-28 03:38] LABS: Bun/Creatinine Ratio 26.7 (12.0-20.0); Calcium, Blood 8.1 mg/dL (8.5-10.1); Creatinine, Blood 1.05 mg/dL (0.40-1.00); Potassium, Blood 3.8 mmol/L (3.5-5.5)
--- NOTE | 2019-09-28 06:02 | NUR ---
RECEIVED PATIENT FROM ED AT 2100 WITH A DX OF SEVERE SEPSIS. ALERT AND ORIENTED X4. PATIENT HAS SLEPT WELL THROUGHOUT THE NIGHT WITHOUT COMPLAINTS OF PAIN OR DISCOMFORT. VITALS STABLE. ON 4L O2 NC. SATTING BETWEEN 92-96% THROUGHOUT SHIFT. BP 100-120/50-60 THROUGHOUT SHIFT. 16F CHAN AND IT IS PATENT. DRAINAGE IS YELLOW AND CLOUDY. 20G IV LFA AND 18G RFA, BOTH PATENT WITH DRESSINDG C/D/I. HAS RIGHT BKA. LEFT FOOT HAS TWO ULCERS - ONE BY THE MEDIAL HEEL, THE OTHER MEDIALLY BY BIG TOE, WITH NON-ADHERENT PAD AND GAUZE C/D/I. LEFT WHEELER IS REDDENED WITH A REPORTED PAIN LEVEL 3/10 WHEN TOUCHED. PRANAV MI
--- NOTE | 2019-09-28 07:30 | NUR ---
START OF THE SHIFT NOTE: RECEIVED REPORT FROM ANMOL, CERTIFIED MEDICATION AIDE/ROOPA RN, ASSUMED CARE, PATIENT IS AWAKE, ALERT AND ORIENTED, DENIES PAIN, AFEBRILE, LUNG SOUNDS DIMINISHED, SLIGHTLY COARSE IN BASES, PATIENT IS IN NSR WITH HR 70'S, SBP'S IN 120'S, BOWEL TONES PRESENT IN ALL FOUR QUADRANTS, CHAN CATHETER IN PLACE, DRAINING CLEAR YELLOW URINE, PATIENT HAS A RIGHT BKA AND LEFT FOOT IS WRAPPED WITH KERLEX D/T WOUND ON LATERAL OF BIG TOE AND HEEL WOUND, SEE PICTURES IN CHART, PATIENT IS A DIABETIC AND BLOOD GLUCOSE WAS 99, NO COVERAGE REQUIRED, PATIENT TOOK ALL HER AM MEDS WELL WITHOUT ANY PROBLEM SWALLOWING, DR. HOLLOWAY IN TO SEE PATIENT, NEW ORDERS RECEIVED, PATIENT IS NOW MEDICAL FLOOR STATUS WITHOUT ANY TELEMETRY, WILL DISCONTINUE CHAN CATHETER ORDERED, RT IN TO GIVE BREATHING TREATMENT, CALL LIGHT IN REACH, WILL CONTINUE TO MONITOR.
--- NOTE | 2019-09-28 09:45 | NUR ---
ATTEMPTED TO CALL REPORT TO CHASITY WILKINSON, ON MEDICAL FLOOR, WILL CALL BACK AFTER LOOKING THROUGH PATIENT'S CHART.
--- NOTE | 2019-09-28 10:49 | NUR ---
REPORT WAS CALLED TO CHASITY WILKINSON, ON MEDICAL FLOOR, PATIENT TRANSFERRED TO ROOM 331 VIA BED.
--- NOTE | 2019-09-28 11:38 | NUR ---
RECEIVED TO RM 331 FROM ICU VIA BED AT 1050. SHE IS ORIENTED TO THE ROOM AND HAS NO COMPLAINTS AT THIS TIME. WHEN REVIEWING HER CHART I NOTED HER LAST SET OF VS IN ICU WERE CHANGED. BP AND PULSE CHECKED HERE AND IMPROVED. WILL CHECK RESPIRATIONS AND TEMP. SHE VOIDED IN ICU POST CHAN CATHETER. SHE SAYS SHE USES THE BEDPAN WHEN IN THE HOSPITAL BUT AT HOME SHE USES HER W/C AND A COMMODE WITH THE HELP OF HER CHILDREN. IVF'S CONTINUE AT 100/HR. SHE IS SLEEPY.
--- NOTE | 2019-09-28 15:12 | NUR ---
SHE IS ON 3L 95% WHEN LAST CHECKED. SHE HAS NO COMPLAINTS. SHE HOPES TO NOT BE IN THE HOSPITAL TOO LONG. SHE HAS VOIDED ON THE BEDPAN SINCE ARRIVAL TO THIS UNIT.NONADHERANT AND GAUZE DRESSING INTACT ON L FOOT. I SEE A LITTLE YELLOW DRAINAGE ON THE GAUZE AT THE LATERAL BIG TOE AND MEDIAL ANKLE. I TOOK THE STUMP SOCK OFF THEN REAPPLIED IT. HER STUMP IS WNL. CONTACT ISOLATION IN PLACE FOR MRSA IN URINE AND IN WOUNDS. NO COMPLAINTS. SHE HAS BEEN RECEIVING HER SCHEDULED NEB TREATMENTS.
--- NOTE | 2019-09-28 18:01 | NUR ---
SHE HAS FAMILY VISITING HER NOW. THEY BROUGHT HER IN A SMALL PORTION OF [facility]. 3 CHICKEN STRIPS AND MASHED POTATOES. PATIENT HAS HAD NO COMPLAINTS. L FOOT DRESSING INTACT. SEE PREVIOUS NURSES NOTES.
--- NOTE | 2019-09-29 01:44 | NUR ---
Intermittent restlessness noted this shift. Incont of urine, changed a few times - see doc flow sheets for details. Contact precautions continue. Alert and oriented. Warm blankets applied for comfort and calming effect. Call light in reach.
[2019-09-29 05:24] LABS: BASOPHILS ABSOLUTE AUTO 0.05 K/mm3 (0.00-0.23); BASOPHILS PERCENT AUTO 0 % (0-2); EOSINOPHILS ABSOLUTE AUTO 0.31 K/mm3 (0.00-0.68); EOSINOPHILS PERCENT AUTO 3 % (0-6); Hemoglobin 10.5 g/dL (11.5-16.0); IMMATURE GRAN PERCENT AUTO 1 % (0-1); LYMPHOCYTES ABSOLUTE AUTO 2.99 K/mm3 (0.84-5.20); LYMPHOCYTES PERCENT AUTO 24 % (21-46); MONOCYTES ABSOLUTE AUTO 0.86 K/mm3 (0.16-1.47); MONOCYTES PERCENT AUTO 7 % (4-13); Mean Corpuscular HGB 27.6 pg (26.0-34.0); Mean Corpuscular HGB Conc 30.9 g/dL (31.5-36.5); Mean Corpuscular Volume 90 fL (80-100); Mean Platelet Volume 9.5 fL (9.1-12.4); NEUTROPHILS ABSOLUTE AUTO 8.18 K/mm3 (1.96-9.15); NEUTROPHILS PERCENT AUTO 66 % (41-73); Platelet Count 347 K/mm3 (150-400); RDW Coefficient Variation 16.5 % (11.7-14.2); RDW Standard Deviation 54.6 fL (35.1-46.3); White Blood Cell Count 12.49 K/mm3 (4.00-11.30)
[2019-09-29 05:48] LABS: Anion Gap 6 mmol/L (6-16); Blood Urea Nitrogen 14 mg/dL (8-24); Bun/Creatinine Ratio 15.1 (12.0-20.0); CO2, Blood 32 mmol/L (21-32); Calcium, Blood 8.7 mg/dL (8.5-10.1); Chloride, Blood 103 mmol/L (98-108); Creatinine, Blood 0.93 mg/dL (0.40-1.00); Glomerular Filtration Rate >60 (60-); Glucose, Blood 108 mg/dL (70-99); Potassium, Blood 3.6 mmol/L (3.5-5.5); Sodium, Blood 141 mmol/L (136-145)
[2019-09-29 08:56] LABS: Vancomycin, Random 16.4 ug/mL
--- NOTE | 2019-09-29 18:51 | NUR ---
SHIFT SUMMARY PATIENT A&O X4, ROLLS IN BED WELL AND CAN PULL SELF TO SIT AT EOB. USES BEDPAN WITH 1 ASST, NO INCONTINENCE. NEEDS 2 ASST TO PULL UP IN BED. PATIENT DENIES PAIN, NAUSEA, DIZZINESS, UTI S/S, STATES SHE FEELS A LOT BETTER. SHE DOESN'T REMEMBER MANY DETAILS OF COMING TO THE HOSPITAL. SHE WAS UPSET THAT SHE WASN'T ABLE TO BE DISCHARGED TODAY. ИРИНА THE CHROME PLATER CONSOLED PT. DR HOLLOWAY STATED SHE IS TO BE IN CONTACT [facility] (NOT DROPLET IF IT STATES THAT IN CHART). SHE REFUSED STOOL SOFTENER, STATES SHE HAD A BM YESTERDAY. O2 DECREASED TO 2L, STAFF NEEDS TO KEEP TRYING TO WEAN HER OFF O2. NO COUGH, PT STARTED I.S. TONIGHT PER ORDERS.
--- NOTE | 2019-09-30 05:17 | NUR ---
SHIFT SUMMARY PATIENT LETHARGIC DURING CASTING TRUCKER. THIS NURSE ASKED PATIENT WHY SHE WAS SO TIRED AND PATIENT STATED SHE HADNT SLEPT "IN DAYS". VSS. PATIENT USES CALL LIGHT APPROPRIATELY. USES BEDPAN. TURNS SELF IN BED. WILL CONTINUE TO MONITOR.
--- NOTE | 2019-09-30 08:29 | NUR ---
PT STATED SHE FELT HER BLOOD SUGAR WAS LOW. WHEN CHECK IT WAS 41. GAVE PT YOGURT, ORANGE JUICE WELL SOME GRAM CRACKERS.
[2019-09-30 09:40] LABS: Vancomycin, Trough 27.5 ug/mL (5.0-10.0)
[2019-09-30] MEDS ORDERED: LINE600 PO (12:45)
--- NOTE | 2019-09-30 14:34 | NUR ---
PT DISCHARGE AT 1330 VIA WHEEL CHAIR, FAMILY TO TRANSPORT. ALL PAPERWORK REVIEWED AND EDUCATIONAL MATERIAL SENT WITH PT. MEDCIATION FAXED TO [facility]. NO DISTRESS NOTED. THIS CARDIOLOGY SPECIALIST ESCORTED PT VIA WHEEL CHAIR.
== END 2019-09-30 13:39 | disposition home or self-care (01) | DRG 872 ==
LOC: ER 15:24 → ICUW 18:53 → MEDS 09-28 10:49
PROVIDERS: Hospitalist; Internal Medicine; Nurse Practitioner Acute Care; Pharmacist; ADMIT Internal Medicine
DX: A41.81 Sepsis due to Enterococcus (principal); N30.00 Acute cystitis without hematuria; N17.9 Acute kidney failure, unspecified; L03.116 Cellulitis of left lower limb; J98.11 Atelectasis; Z16.21 Resistance to vancomycin; R65.20 Severe sepsis without septic shock; R31.9 Hematuria, unspecified; E87.6 Hypokalemia; J44.9 Chronic obstructive pulmonary disease, unspecified; E66.01 Morbid (severe) obesity due to excess calories; G40.909 Epilepsy, unspecified, not intractable, without status epilepticus; Z99.81 Dependence on supplemental oxygen; Z23 Encounter for immunization; Z79.4 Long term (current) use of insulin; Z79.01 Long term (current) use of anticoagulants; Z86.73 Personal history of transient ischemic attack (TIA), and cerebral infarction without residual deficits; N18.3 Chronic kidney disease, stage 3 (moderate); E11.22 Type 2 diabetes mellitus with diabetic chronic kidney disease; Z99.3 Dependence on wheelchair; K21.0 Gastro-esophageal reflux disease with esophagitis; F32.9 Major depressive disorder, single episode, unspecified; Z89.511 Acquired absence of right leg below knee; F17.210 Nicotine dependence, cigarettes, uncomplicated; I25.10 Atherosclerotic heart disease of native coronary artery without angina pectoris; E86.0 Dehydration; E11.51 Type 2 diabetes mellitus with diabetic peripheral angiopathy without gangrene
CPT/HCPCS: 0099U; 36415; 51702; 71045; 80048; 80053; 80202; 81001; 82947; 83605; 83880; 84145; 85025; 87040; 87077; 87086; 87106; 87186; 90686; 93005; 93010; 94640; 94760; 96361-59; 96365-59; 96366-59; 96367-59; 96368; 96372-59; 99285-25; G0008; J0696; J1644; J1956; J3370; J3475; J3480; J7030; J7050; J7120

== ENCOUNTER → 2019-10-10 | Outpatient (CLI) | payer MEDICARE, OTHER ==
[~2019-10-10] MED LIST changes: +LINE600 PO; +OMEPRAZOLE20 MG PO; -PANT40 PO
[2019-10-10 15:37] LABS: Creatinine, Urine Random 44.1 mg/dL (27.00-270.00)
[2019-10-10 15:40] LABS: Microalb/Creat Ratio UR, Rand 448.98 mg/g (0.000-30.000)
== END ==
LOC: LAB SHORT 11:30 → LAB UCHC 11:30 → LAB FUT 10-04 10:05
PROVIDERS: Family Medicine
DX: Z11.59 Encounter for screening for other viral diseases (principal); E13.621 Other specified diabetes mellitus with foot ulcer
CPT/HCPCS: 82043; 82570

== ENCOUNTER → 2019-10-24 | Outpatient (CLI) | payer MEDICARE, OTHER | LOC: LAB 19:26 → LAB SHORT 19:26 | DX: R30.0 Dysuria (principal); B95.2 Enterococcus as the cause of diseases classified elsewhere; Z16.21 Resistance to vancomycin | CPT/HCPCS: 87077; 87086; 87147; 87186 ==

== ENCOUNTER → 2019-10-30 | Outpatient (CLI) | payer MEDICARE, OTHER ==
[~2019-10-30] MED LIST changes: +CYAN500 PO; +Ferus150 MG PO; +Florastor250 MG PO; -OMEPRAZOLE20 MG PO; +PANT40 PO; +POTA10T PO; +PREMARIN VAGINAL CRE VAG
[2019-10-30 19:29] LABS: Source, Urine Catheter
[2019-10-30 20:22] LABS: Bilirubin, Urine Neg (Neg); Blood, Urine 2+ (Neg); Glucose Qualitative, Urine Neg (Neg); Ketones, Urine Neg (Neg); Leukocyte Esterase, Urine 3+ (Neg); Nitrite, Urine Pos (Neg); Protein, Urine 2+ (Neg); Urobilinogen, Urine NORM (Normal); pH, Urine 6.5 (5.0-8.0)
[2019-10-30 20:31] LABS: Appearance, Urine Cloudy (Clear); Color, Urine Yellow (P-Yellow); Red Blood Cells, Urine 0-2 /hpf (0-2); White Blood Cells, Urine TNTC /hpf (0-5)
[2019-10-30 20:32] LABS: Bacteria Many /hpf; Squamous Epithelial Cells Not Seen /hpf (Few)
== END ==
LOC: LAB SHORT 19:27 → LAB 19:27
PROVIDERS: Family Medicine
DX: N39.0 Urinary tract infection, site not specified (principal)
CPT/HCPCS: 81001; 87077; 87086; 87186

== ENCOUNTER 2019-11-03 15:30 | Inpatient (IN) | payer MEDICARE, OTHER ==
[~2019-11-03] VITALS: Ht 165.1 cm; Wt 104.5 kg
[~2019-11-03 15:30] MED LIST changes: -CYAN500 PO; -Ferus150 MG PO; -Florastor250 MG PO; -POTA10T PO; -PREMARIN VAGINAL CRE VAG
[2019-11-03 16:42] LABS: Source, Urine Catheter
[2019-11-03 16:47] LABS: Bilirubin, Urine Neg (Neg); Blood, Urine 2+ (Neg); Glucose Qualitative, Urine 1+ (Neg); Ketones, Urine Neg (Neg); Leukocyte Esterase, Urine 3+ (Neg); Nitrite, Urine Pos (Neg); Protein, Urine 2+ (Neg); Urobilinogen, Urine NORM (Normal)
[2019-11-03 16:50] LABS: Albumin, Blood 2.2 g/dL (3.4-5.0); Albumin/Globulin Ratio 0.4 (0.8-1.8); Bilirubin, Total 0.3 mg/dL (0.1-1.0); Bun/Creatinine Ratio 29.8 (12.0-20.0); Calcium, Blood 8.7 mg/dL (8.5-10.1); Creatinine, Blood 1.41 mg/dL (0.40-1.00); Globulin, Blood 6.1 g/dL (2.2-4.0); Potassium, Blood 3.8 mmol/L (3.5-5.5); Total Protein, Blood 8.3 g/dL (6.4-8.2)
[2019-11-03 16:53] LABS: Appearance, Urine Cloudy (Clear); Color, Urine Yellow (P-Yellow)
[2019-11-03 16:54] LABS: Bacteria Many /hpf; Squamous Epithelial Cells Few /hpf (Few); White Blood Cells, Urine TNTC /hpf (0-5)
[2019-11-03] MEDS ORDERED: GABA300 PO (17:16)
[2019-11-03] MEDS ORDERED: CYAN500 PO (17:20)
[2019-11-03] MEDS ORDERED: POTA10T PO (17:23)
[2019-11-03 17:41] LABS: BASOPHILS ABSOLUTE AUTO 0.06 K/mm3 (0.00-0.23); BASOPHILS PERCENT AUTO 0 % (0-2); EOSINOPHILS PERCENT AUTO 5 % (0-6); Hematocrit 31.9 % (33.0-51.0); Hemoglobin 9.9 g/dL (11.5-16.0); IMMATURE GRAN ABSOLUTE AUTO 0.13 K/mm3 (0.00-0.10); IMMATURE GRAN PERCENT AUTO 1 % (0-1); LYMPHOCYTES PERCENT AUTO 22 % (21-46); MONOCYTES ABSOLUTE AUTO 0.82 K/mm3 (0.16-1.47); MONOCYTES PERCENT AUTO 5 % (4-13); Mean Corpuscular HGB 28.3 pg (26.0-34.0); Mean Corpuscular Volume 91 fL (80-100); Mean Platelet Volume 10.2 fL (9.1-12.4); NEUTROPHILS ABSOLUTE AUTO 10.31 K/mm3 (1.96-9.15); NEUTROPHILS PERCENT AUTO 66 % (41-73); Platelet Count 383 K/mm3 (150-400); RDW Coefficient Variation 17.7 % (11.7-14.2); RDW Standard Deviation 59.1 fL (35.1-46.3); White Blood Cell Count 15.52 K/mm3 (4.00-11.30)
[2019-11-03 17:58] LABS: International Normalized Ratio 0.95; Prothrombin Time Results 10.1 Sec (9.7-11.5)
[2019-11-03] MEDS ORDERED: PREMARIN VAGINAL CRE VAG (18:33)
[2019-11-03] MEDS ORDERED: TRAM50 PO (18:34)
[2019-11-03] MEDS ORDERED: Bumetanide2 MG PO ×2 (20:52)
[2019-11-03] MEDS ORDERED: Ferus150 MG PO (20:54)
[2019-11-04 05:07] LABS: Hematocrit 28.7 % (33.0-51.0); Mean Corpuscular HGB 28.4 pg (26.0-34.0); Mean Corpuscular HGB Conc 31.4 g/dL (31.5-36.5); Mean Corpuscular Volume 91 fL (80-100); Mean Platelet Volume 10.3 fL (9.1-12.4); Platelet Count 365 K/mm3 (150-400); RDW Coefficient Variation 17.5 % (11.7-14.2); RDW Standard Deviation 58.2 fL (35.1-46.3); Red Blood Cell Count 3.17 M/mm3 (3.80-5.20); White Blood Cell Count 14.11 K/mm3 (4.00-11.30)
[2019-11-04 05:55] LABS: Albumin, Blood 1.8 g/dL (3.4-5.0); Albumin/Globulin Ratio 0.4 (0.8-1.8); Bilirubin, Total 0.3 mg/dL (0.1-1.0); Bun/Creatinine Ratio 29.7 (12.0-20.0); Calcium, Blood 8.5 mg/dL (8.5-10.1); Creatinine, Blood 1.11 mg/dL (0.40-1.00); Globulin, Blood 5.1 g/dL (2.2-4.0); Potassium, Blood 3.6 mmol/L (3.5-5.5); Total Protein, Blood 6.9 g/dL (6.4-8.2)
--- NOTE | 2019-11-04 06:26 | NUR ---
SHIFT SUMMARY: A/OX3. GOOD HISTORIAN BUT STATES SHE IS UNABLE TO LIST MEDS SHE TAKES HER CAREGIVER PREPARES HER MEDS FOR HER. PLEASANT AND COOPERATIVE. ABLE TO MAKE NEEDS KNOWN. CONTINENT- VOIDED 2X TONIGHT IN BED [place]. URINE MALODOROUS. 02 91-93% ON 2L VIA NC. OCCASIONAL CONGESTED COUGHING. STATES COUGH IS PRODUCTIVE, BUT SPUTUM DOES NOT ENTER MOUTH. SPUTUM UNOBSERVED. LS, BASES DIM. SOB WITH EXERTION. DRESSING IN PLACE OVER CHRONIC WOUND ON LLE. PT STATES DRESSING WAS CHANGE ON 11/03 IN THE AM AND IS NOT DUE TO BE CHANGED AGAIN UNTIL 11/07. DENIES PAIN. CALL BUTTON EXPLAINED AND PLACED WITHIN REACH.
--- NOTE | 2019-11-04 16:44 | NUR ---
PATIENT CONTINUES ON IV ABX WITHOUT S/SX OF ADVERSE REACTIONS NOTED OR REPORTED. VITALS STABLE. DENIES PAIN AND DISCOMFORT. CALLS FOR STAFF ASSIST APPROPRIATELY. NO ACUTE CHANGES NOTED OR REPORTED ON THIS SHIFT. WILL CONTINUE TO MONITOR AND PROVIDE CARE NEEDED.
[2019-11-05 05:01] LABS: BASOPHILS ABSOLUTE AUTO 0.05 K/mm3 (0.00-0.23); BASOPHILS PERCENT AUTO 0 % (0-2); EOSINOPHILS PERCENT AUTO 4 % (0-6); Hematocrit 31.1 % (33.0-51.0); Hemoglobin 9.5 g/dL (11.5-16.0); IMMATURE GRAN ABSOLUTE AUTO 0.07 K/mm3 (0.00-0.10); IMMATURE GRAN PERCENT AUTO 1 % (0-1); LYMPHOCYTES ABSOLUTE AUTO 3.54 K/mm3 (0.84-5.20); LYMPHOCYTES PERCENT AUTO 31 % (21-46); MONOCYTES ABSOLUTE AUTO 0.96 K/mm3 (0.16-1.47); MONOCYTES PERCENT AUTO 8 % (4-13); Mean Corpuscular HGB 27.9 pg (26.0-34.0); Mean Corpuscular HGB Conc 30.5 g/dL (31.5-36.5); Mean Corpuscular Volume 91 fL (80-100); Mean Platelet Volume 9.9 fL (9.1-12.4); NEUTROPHILS ABSOLUTE AUTO 6.34 K/mm3 (1.96-9.15); NEUTROPHILS PERCENT AUTO 55 % (41-73); Platelet Count 378 K/mm3 (150-400); RDW Coefficient Variation 17.4 % (11.7-14.2); RDW Standard Deviation 58.8 fL (35.1-46.3); Red Blood Cell Count 3.41 M/mm3 (3.80-5.20); White Blood Cell Count 11.46 K/mm3 (4.00-11.30)
[2019-11-05 05:35] LABS: Anion Gap 4 mmol/L (6-16); Blood Urea Nitrogen 25 mg/dL (8-24); Bun/Creatinine Ratio 29.4 (12.0-20.0); CO2, Blood 33 mmol/L (21-32); Calcium, Blood 9.1 mg/dL (8.5-10.1); Chloride, Blood 102 mmol/L (98-108); Creatinine, Blood 0.85 mg/dL (0.40-1.00); Glomerular Filtration Rate >60 (60-); Glucose, Blood 95 mg/dL (70-99); Potassium, Blood 3.5 mmol/L (3.5-5.5); Sodium, Blood 139 mmol/L (136-145)
--- NOTE | 2019-11-05 06:23 | NUR ---
SHIFT SUMMARY: NO ACUTE CHANGES OVER NIGHT. A/OX3. VSS. AFEB. COMMUNICATES NEEDS. DENIES DYSURIA. SLEEPING HEAVILY AND TALKING IN HER SLEEP AT ONE POINT IN THE NIGHT. VERY RESTLESS AND REPORTING N/T IN EXTREMITIES, ALL RESOLVED WITH HS NEURONTIN DOSE. RESTING QUIETLY AND STATES COMFORTABLY AT THIS TIME. BED LOW, CALL BUTTON IN REACH.
--- NOTE | 2019-11-05 07:15 | NUR ---
ASSUMED CARE OF PATIENT. SHE IS CURRENTLY SLEEPING THIS MORNING AND WILL POST SHIFT ASSESSMENT SOON.
--- NOTE | 2019-11-05 16:37 | NUR ---
SHIFT SUMMARY PATIENT IS PLEASANT, ALERT AND ORIENTED. SHE HAS BEEN MOVING AROUND IN THE BED. SHE HAD TWO EXTRA LARGE BOWEL MOVEMENTS TODAY AND SHE STATES THAT SHE IS FEELING A BIT BETTER ALTHOUGH SHE FELT THAT SHE WAS STOPPED UP. SHE STILL DENIES DYSURIA AT THIS TIME, AND THE FREQUENCY HAS BEEN BETTER TODAY.
[2019-11-05 20:28] LABS: Vancomycin, Trough 19.8 ug/mL (5.0-10.0)
[2019-11-06 05:58] LABS: BASOPHILS ABSOLUTE AUTO 0.06 K/mm3 (0.00-0.23); BASOPHILS PERCENT AUTO 1 % (0-2); EOSINOPHILS ABSOLUTE AUTO 0.44 K/mm3 (0.00-0.68); EOSINOPHILS PERCENT AUTO 4 % (0-6); Hematocrit 31.6 % (33.0-51.0); Hemoglobin 10.1 g/dL (11.5-16.0); IMMATURE GRAN ABSOLUTE AUTO 0.11 K/mm3 (0.00-0.10); IMMATURE GRAN PERCENT AUTO 1 % (0-1); LYMPHOCYTES ABSOLUTE AUTO 3.27 K/mm3 (0.84-5.20); LYMPHOCYTES PERCENT AUTO 28 % (21-46); MONOCYTES ABSOLUTE AUTO 0.76 K/mm3 (0.16-1.47); MONOCYTES PERCENT AUTO 7 % (4-13); Mean Corpuscular HGB 28.1 pg (26.0-34.0); Mean Platelet Volume 9.9 fL (9.1-12.4); NEUTROPHILS ABSOLUTE AUTO 7.03 K/mm3 (1.96-9.15); NEUTROPHILS PERCENT AUTO 60 % (41-73); Platelet Count 409 K/mm3 (150-400); RDW Coefficient Variation 17.5 % (11.7-14.2); RDW Standard Deviation 56.4 fL (35.1-46.3); Red Blood Cell Count 3.59 M/mm3 (3.80-5.20); White Blood Cell Count 11.67 K/mm3 (4.00-11.30)
--- NOTE | 2019-11-06 05:59 | NUR ---
SHIFT SUMMARY: NO ACUTE CHAGES OVER NIGHT. SLEPT MUCH OF THE NIGHT. VSS. AFEB. DENIES DYSURIA AND FREQUENCY. URINE MALODOROUS. BED LOW, CALL BUTTON IN REACH.
[2019-11-06 06:01] LABS: Mean Corpuscular Volume 88 fL (80-100)
[2019-11-06 06:24] LABS: Bun/Creatinine Ratio 29.1 (12.0-20.0); Calcium, Blood 9.3 mg/dL (8.5-10.1); Potassium, Blood 3.9 mmol/L (3.5-5.5)
[2019-11-06] MEDS ORDERED: Florastor250 MG PO (17:40)
[2019-11-06] MEDS ORDERED: LEVO750 PO (17:40)
--- NOTE | 2019-11-06 18:42 | NUR ---
PATIENT DISCHARGE: PATIENT DISCHARGED TO HOME THIS SHIFT. MEDICATION RECONCILIATION COMPLETED; MED LIST FAXED TO [facility]. DISCHARGE EDUCATION COMPLETED WITH PATIENT AND FAMILY. PATIENT TRANSPORTED TO EXIT BY [facility] STAFF WITH WHEELCHAIR AT 1820. PATIENT DEPARTED [facility] VIA PRIVATE AUTO.
== END 2019-11-06 18:18 | disposition home or self-care (01) | DRG 872 ==
LOC: ER 15:30 → MEDS 19:26
PROVIDERS: Family Medicine; Physician Assistant; ADMIT Internal Medicine
DX: A41.52 Sepsis due to Pseudomonas (principal); Z79.82 Long term (current) use of aspirin; Z79.4 Long term (current) use of insulin; J44.9 Chronic obstructive pulmonary disease, unspecified; E11.51 Type 2 diabetes mellitus with diabetic peripheral angiopathy without gangrene; K21.9 Gastro-esophageal reflux disease without esophagitis; E11.22 Type 2 diabetes mellitus with diabetic chronic kidney disease; F32.9 Major depressive disorder, single episode, unspecified; E66.01 Morbid (severe) obesity due to excess calories; G40.909 Epilepsy, unspecified, not intractable, without status epilepticus; Z86.73 Personal history of transient ischemic attack (TIA), and cerebral infarction without residual deficits; N18.3 Chronic kidney disease, stage 3 (moderate); F17.210 Nicotine dependence, cigarettes, uncomplicated; Z68.38 Body mass index [BMI] 38.0-38.9, adult; B37.2 Candidiasis of skin and nail; Z89.611 Acquired absence of right leg above knee
CPT/HCPCS: 36415; 51701; 51798; 80048; 80053; 80202; 81001; 82947; 83605; 85025; 85027; 85610; 85730; 87040; 87077; 87086; 87186; 93005; 93010; 96361-59; 96365-59; 99285-25; J0713; J1650; J2543; J3370; J7030; J7050; P9046

== ENCOUNTER → 2019-11-16 | Outpatient (CLI) | payer MEDICARE, OTHER ==
[~2019-11-16] MED LIST changes: +CYAN500 PO; +Ferus150 MG PO; +Florastor250 MG PO; +POTA10T PO; +PREMARIN VAGINAL CRE VAG
== END ==
LOC: LAB 07:53 → LAB SHORT 07:53
DX: N39.0 Urinary tract infection, site not specified (principal)
CPT/HCPCS: 87077; 87086; 87147; 87186

== ENCOUNTER 2019-11-30 00:19 | Day surgery (SDC) | payer MEDICARE, OTHER | END 2019-11-30 14:33 | disposition home or self-care (01) | LOC: ATC 00:19 | DX: N39.0 Urinary tract infection, site not specified (principal); I12.9 Hypertensive chronic kidney disease with stage 1 through stage 4 chronic kidney disease, or unspecified chronic kidney disease; E11.22 Type 2 diabetes mellitus with diabetic chronic kidney disease; N18.3 Chronic kidney disease, stage 3 (moderate); N25.81 Secondary hyperparathyroidism of renal origin; D63.1 Anemia in chronic kidney disease; F17.210 Nicotine dependence, cigarettes, uncomplicated; E11.21 Type 2 diabetes mellitus with diabetic nephropathy; D50.9 Iron deficiency anemia, unspecified; E53.8 Deficiency of other specified B group vitamins; Z79.2 Long term (current) use of antibiotics; Z79.4 Long term (current) use of insulin; Z79.02 Long term (current) use of antithrombotics/antiplatelets; Z79.899 Other long term (current) drug therapy; Z88.0 Allergy status to penicillin; Z88.5 Allergy status to narcotic agent; Z88.6 Allergy status to analgesic agent; Z88.8 Allergy status to other drugs, medicaments and biological substances; Z91.041 Radiographic dye allergy status | CPT/HCPCS: 96365; J0713 ==

== ENCOUNTER 2019-12-01 08:33 | Day surgery (SDC) | payer MEDICARE, OTHER | END 2019-12-01 15:20 | disposition home or self-care (01) | LOC: ATC 08:33 | DX: N39.0 Urinary tract infection, site not specified (principal); I12.9 Hypertensive chronic kidney disease with stage 1 through stage 4 chronic kidney disease, or unspecified chronic kidney disease; E11.22 Type 2 diabetes mellitus with diabetic chronic kidney disease; N18.3 Chronic kidney disease, stage 3 (moderate); N25.81 Secondary hyperparathyroidism of renal origin; D63.1 Anemia in chronic kidney disease; E11.21 Type 2 diabetes mellitus with diabetic nephropathy; D50.9 Iron deficiency anemia, unspecified; F17.210 Nicotine dependence, cigarettes, uncomplicated; Z79.2 Long term (current) use of antibiotics; Z79.4 Long term (current) use of insulin; Z79.82 Long term (current) use of aspirin; Z79.02 Long term (current) use of antithrombotics/antiplatelets; Z79.899 Other long term (current) drug therapy; Z88.0 Allergy status to penicillin; Z88.6 Allergy status to analgesic agent; Z88.5 Allergy status to narcotic agent; Z88.8 Allergy status to other drugs, medicaments and biological substances; Z91.041 Radiographic dye allergy status | CPT/HCPCS: 96365; J0713 ==

== ENCOUNTER 2019-12-02 14:52 | Day surgery (SDC) | payer MEDICARE, OTHER | END 2019-12-02 15:30 | disposition home or self-care (01) | LOC: ATC 14:52 | DX: N39.0 Urinary tract infection, site not specified (principal); I12.9 Hypertensive chronic kidney disease with stage 1 through stage 4 chronic kidney disease, or unspecified chronic kidney disease; E11.22 Type 2 diabetes mellitus with diabetic chronic kidney disease; N18.3 Chronic kidney disease, stage 3 (moderate); N25.81 Secondary hyperparathyroidism of renal origin; D63.1 Anemia in chronic kidney disease; E11.21 Type 2 diabetes mellitus with diabetic nephropathy; D50.9 Iron deficiency anemia, unspecified; F17.210 Nicotine dependence, cigarettes, uncomplicated; E53.8 Deficiency of other specified B group vitamins; Z79.2 Long term (current) use of antibiotics; Z79.4 Long term (current) use of insulin; Z79.82 Long term (current) use of aspirin; Z79.02 Long term (current) use of antithrombotics/antiplatelets; Z79.899 Other long term (current) drug therapy; Z88.0 Allergy status to penicillin; Z88.6 Allergy status to analgesic agent; Z88.5 Allergy status to narcotic agent; Z88.8 Allergy status to other drugs, medicaments and biological substances; Z91.041 Radiographic dye allergy status | CPT/HCPCS: 96365; J0713 ==

== ENCOUNTER 2020-02-15 15:30 | Emergency (ER) | payer MEDICARE, OTHER ==
[~2020-02-15] VITALS: Ht 165.1 cm; Wt 103.4 kg
[~2020-02-15 15:30] MED LIST changes: -Amitriptyline100 MG PO; -Aspir 8181 MG PO; -GABA300 PO; -Humalog100 UNIT/3 SC; -INSULANPEN SC; -PANT40 PO; -POTA10T PO
[2020-02-15 15:59] LABS: BASOPHILS ABSOLUTE AUTO 0.04 K/mm3 (0.00-0.23); BASOPHILS PERCENT AUTO 0 % (0-2); EOSINOPHILS PERCENT AUTO 3 % (0-6); Hematocrit 34.4 % (33.0-51.0); IMMATURE GRAN ABSOLUTE AUTO 0.08 K/mm3 (0.00-0.10); IMMATURE GRAN PERCENT AUTO 1 % (0-1); LYMPHOCYTES ABSOLUTE AUTO 3.26 K/mm3 (0.84-5.20); LYMPHOCYTES PERCENT AUTO 23 % (21-46); MONOCYTES PERCENT AUTO 6 % (4-13); Mean Corpuscular HGB 29.6 pg (26.0-34.0); Mean Corpuscular Volume 93 fL (80-100); Mean Platelet Volume 10.1 fL (9.1-12.4); NEUTROPHILS ABSOLUTE AUTO 9.58 K/mm3 (1.96-9.15); NEUTROPHILS PERCENT AUTO 68 % (41-73); Platelet Count 404 K/mm3 (150-400); RDW Coefficient Variation 15.5 % (11.7-14.2); RDW Standard Deviation 52.6 fL (35.1-46.3); Red Blood Cell Count 3.71 M/mm3 (3.80-5.20); White Blood Cell Count 14.16 K/mm3 (4.00-11.30)
[2020-02-15 16:21] LABS: Albumin/Globulin Ratio 0.4 (0.8-1.8); Bilirubin, Total 0.1 mg/dL (0.1-1.0); Calcium, Blood 8.1 mg/dL (8.5-10.1); Globulin, Blood 5.1 g/dL (2.2-4.0); Potassium, Blood 4.2 mmol/L (3.5-5.5); Total Protein, Blood 7.1 g/dL (6.4-8.2)
[2020-02-15] MEDS ORDERED: LEVE500 PO ×2 (18:05→18:06)
[2020-02-15] MEDS ORDERED: Humalog100 UNIT/3 SC (18:05)
[2020-02-15] MEDS ORDERED: Amitriptyline100 MG PO (18:06)
[2020-02-15] MEDS ORDERED: INSULANPEN SC (18:06)
[2020-02-15] MEDS ORDERED: ATOR80 PO (18:06)
[2020-02-15] MEDS ORDERED: CLOP75 PO (18:07)
[2020-02-15] MEDS ORDERED: Citalopram HBr40 MG PO (18:07)
[2020-02-15] MEDS ORDERED: POTA10T PO (18:08)
[2020-02-15] MEDS ORDERED: TRAM50 PO (18:09)
[2020-02-15] MEDS ORDERED: Ventolin/Prove6.7 GM INH (18:09)
[2020-02-15] MEDS ORDERED: GABA300 PO ×2 (19:10)
[2020-02-15] MEDS ORDERED: METO2.5 PO (19:16)
[2020-02-15] MEDS ORDERED: Bumetanide2 MG PO ×2 (19:30)
[2020-02-15] MEDS ORDERED: Aspir 8181 MG PO (19:30)
[2020-02-15] MEDS ORDERED: OMEP20ER PO (19:32)
== END 2020-02-15 19:57 | disposition home or self-care (01) ==
LOC: ER 15:30 → MEDS 17:31 → ER 17:31
PROVIDERS: Nurse Practitioner
DX: L03.116 Cellulitis of left lower limb (principal); E11.65 Type 2 diabetes mellitus with hyperglycemia; E11.22 Type 2 diabetes mellitus with diabetic chronic kidney disease; E11.51 Type 2 diabetes mellitus with diabetic peripheral angiopathy without gangrene; N18.3 Chronic kidney disease, stage 3 (moderate); F32.9 Major depressive disorder, single episode, unspecified; J44.9 Chronic obstructive pulmonary disease, unspecified; E66.01 Morbid (severe) obesity due to excess calories; Z86.73 Personal history of transient ischemic attack (TIA), and cerebral infarction without residual deficits; Z88.5 Allergy status to narcotic agent; Z91.09 Other allergy status, other than to drugs and biological substances; Z88.6 Allergy status to analgesic agent; Z88.0 Allergy status to penicillin; Z88.8 Allergy status to other drugs, medicaments and biological substances; Z79.82 Long term (current) use of aspirin; Z79.899 Other long term (current) drug therapy; Z79.4 Long term (current) use of insulin; F17.210 Nicotine dependence, cigarettes, uncomplicated
CPT/HCPCS: 36415; 71046; 80053; 83605; 83880; 85025; 87040; 93005; 93010; 93971; 96374; 99284-25; A9270-GY; J3370; J7050

== ENCOUNTER 2020-03-26 10:38 | Day surgery (SDC) | payer MEDICARE, OTHER ==
[~2020-03-26] VITALS: Ht 165.1 cm; Wt 103.0 kg
[~2020-03-26 10:38] MED LIST changes: +Amitriptyline100 MG PO; +Aspir 8181 MG PO; +Citalopram HBr40 MG PO; +GABA300 PO; +Humalog100 UNIT/3 SC; +INSULANPEN SC; +POTA10T PO; +Ventolin/Prove6.7 GM INH
--- NOTE | 2020-03-26 14:55 | NUR ---
PT RECOVERY ROOM POST PROCEDURE. PT IS DROWSY, BUT ANSWERING QUESTIONS APPROPRIATELY, DENIES PAIN OR DISCOMFORT. PT'S CBG 50, RECHCEDK 43-GIVEN JUICE AND CHEESE SLICES-PT REPORTS NOT FEELING SYMPTOMATIC. MONITOR SR 80'S, B/P 118/63, AFEBRILE, SPO2 90-92% RA. R GROIN NO SWELLING/HEMATOMA, TEGADERM DRSG INTACT. LLE PULES: DP 1+, AND PT DOP.
--- NOTE | 2020-03-26 15:20 | NUR ---
PT'S CBG 71, GIVEN ADDITIONAL JUICE.
--- NOTE | 2020-03-26 15:35 | NUR ---
PT DESATURATING TO 88% ON RA, PLACED ON 2L NC SPO2 93% ON 2L NC.
--- NOTE | 2020-03-26 16:35 | NUR ---
PT SITTING UP EATING DINNER, SITE UNCHANGED. PT SPO2 90-92% ON RA.
--- NOTE | 2020-03-26 17:35 | NUR ---
PT'S LEFT LEG WOUNDS REDRESSED WITH TELFA, GAUZE AND KERLIX PER DR ZEPEDA. PT REPORTS HOME HEALTH NURSE VISITS TOMORROW AND IS MANAGING DRSG CHANGES.
--- NOTE | 2020-03-26 17:45 | NUR ---
PT DRESSED WITH ASSISTANCE, SITE UNCHANGED-IV REMOVED, CANNULA INTACT. PT WAS ASSISTED TRANSFERRING BACK TO W/C.
--- NOTE | 2020-03-26 17:55 | NUR ---
PT RECEIVED DISCHARGE INSTRUCTIONS, SITE MANAGEMENT, MED LIST AND ANGIOGRAM AFTER CARE INSTRUCTIONS; VERBALIZED GOOD UNDERSTANDING. PT LEFT FACILITY VIA W/C, CONDITION STABLE.
== END 2020-03-26 22:35 | disposition home or self-care (01) ==
LOC: MHTC 10:38
DX: I70.212 Atherosclerosis of native arteries of extremities with intermittent claudication, left leg (principal); Z88.0 Allergy status to penicillin; Z88.6 Allergy status to analgesic agent; Z88.8 Allergy status to other drugs, medicaments and biological substances; Z79.899 Other long term (current) drug therapy; Z79.82 Long term (current) use of aspirin; Z79.4 Long term (current) use of insulin
CPT/HCPCS: 37224; 37228; 37232; 75716; 75774; 82947; 85347; 99152; 99153; C1725; C1760; C1769; C1887; C1894; C2623; J1200; J1644; J1720; J2250; J3010; J7030; Q9967

== ENCOUNTER → 2020-05-02 | Outpatient (CLI) | payer MEDICARE, OTHER | END | disposition home or self-care (01) | LOC: LAB 15:00 → LAB SHORT 15:00 | DX: L03.116 Cellulitis of left lower limb (principal) | CPT/HCPCS: 87070; 87075; 87077; 87147; 87186; 87205 ==

== ENCOUNTER 2021-01-20 13:09 | Inpatient (IN) | payer MEDICARE, OTHER ==
[~2021-01-20] VITALS: Ht 165.1 cm; Wt 120.8 kg
[~2021-01-20 13:09] MED LIST changes: -Amitriptyline100 MG PO; -Citalopram HBr40 MG PO; -Humalog100 UNIT/3 SC; -INSULANPEN SC; -POTA10T PO
[2021-01-20 14:15] LABS: BASOPHILS ABSOLUTE AUTO 0.07 K/mm3 (0.00-0.23); BASOPHILS PERCENT AUTO 1 % (0-2); EOSINOPHILS ABSOLUTE AUTO 0.16 K/mm3 (0.00-0.68); EOSINOPHILS PERCENT AUTO 1 % (0-6); Hematocrit 38.2 % (33.0-51.0); Hemoglobin 11.6 g/dL (11.5-16.0); IMMATURE GRAN PERCENT AUTO 1 % (0-1); LYMPHOCYTES ABSOLUTE AUTO 3.96 K/mm3 (0.84-5.20); LYMPHOCYTES PERCENT AUTO 29 % (21-46); MONOCYTES ABSOLUTE AUTO 0.81 K/mm3 (0.16-1.47); MONOCYTES PERCENT AUTO 6 % (4-13); Mean Corpuscular HGB 28.7 pg (26.0-34.0); Mean Corpuscular HGB Conc 30.4 g/dL (31.5-36.5); Mean Corpuscular Volume 95 fL (80-100); NEUTROPHILS ABSOLUTE AUTO 8.68 K/mm3 (1.96-9.15); NEUTROPHILS PERCENT AUTO 63 % (41-73); Platelet Count 388 K/mm3 (150-400); RDW Coefficient Variation 17.3 % (11.7-14.2); RDW Standard Deviation 59.7 fL (35.1-46.3); Red Blood Cell Count 4.04 M/mm3 (3.80-5.20); White Blood Cell Count 13.78 K/mm3 (4.00-11.30)
[2021-01-20 14:43] LABS: Albumin, Blood 2.1 g/dL (3.4-5.0); Albumin/Globulin Ratio 0.3 (0.8-1.8); Bilirubin, Total 0.2 mg/dL (0.1-1.0); Bun/Creatinine Ratio 17.1 (12.0-20.0); Calcium, Blood 8.8 mg/dL (8.5-10.1); Creatinine, Blood 1.58 mg/dL (0.40-1.00); Globulin, Blood 6.3 g/dL (2.2-4.0); Potassium, Blood 5.9 mmol/L (3.5-5.5); Total Protein, Blood 8.4 g/dL (6.4-8.2)
[2021-01-20 15:19] LABS: Source, Urine Clean Catch
[2021-01-20 15:22] LABS: Appearance, Urine Turbid (Clear); Bilirubin, Urine Neg (Neg); Blood, Urine 3+ (Neg); Color, Urine Yellow (P-Yellow); Glucose Qualitative, Urine Neg (Neg); Ketones, Urine Neg (Neg); Leukocyte Esterase, Urine 3+ (Neg); Nitrite, Urine Neg (Neg); Protein, Urine 3+ (Neg); Urobilinogen, Urine NORM (Normal)
[2021-01-20 15:34] LABS: Bacteria Many /hpf; Red Blood Cells, Urine TNTC /hpf (0-2); Squamous Epithelial Cells Few /hpf (Few); White Blood Cells, Urine TNTC /hpf (0-5)
[2021-01-20 17:58] LABS: PCO2 Arterial 64.3 mmHg (35-45); pH Blood Arterial 7.27 (7.35-7.45)
[2021-01-20 21:24] LABS: Bun/Creatinine Ratio 18.6 (12.0-20.0); Calcium, Blood 8.5 mg/dL (8.5-10.1); Creatinine, Blood 1.45 mg/dL (0.40-1.00); Potassium, Blood 5.1 mmol/L (3.5-5.5)
--- NOTE | 2021-01-20 23:01 | NUR ---
ASSUMPTION OF CARE PATIENT ARRIVED TO UNIT AT 2025 VIA STRETCHER NEW ADMISSION FROM ED. RECEVIED REPORT FROM EZIO GASPAR. PATIENT WITH EYES CLOSED, AWAKENS TO VOICE BUT QUICKLY FALLS BACK TO SLEEP. CPAP/BIPAP MASK IN PLACE. ONE PIV TO RIGHT EXTREMITY WITH D10 IVF INFUSING. MULTIPLE WOUNDS NOTED TO BLE, CHRONIC WOUNDS PER HISTORY. PATIENT DOES NOT RESPOND TO QUESTIONS. DR. DODD TO ROOM TO INSERT CENTRAL LINE TO RIJ, SUCCESSFUL AT 2104. PATIENT TOLERATED WELL. CHAN PLACED CHARTED, INSTANT CLOUDY, YELLOW, ODOROUS URINE PRESENT. VITALS ARE STABLE. FAMILY YARELIS WAS UPDATED VIA T/P. CURRENTLY MEDICATING PRESCRIBED.
[2021-01-20 23:06] LABS: U Amphetamine Screen Not Detected; U Barbituate Screen Not Detected; U Benzodiazapine Screen Not Detected; U Buprenorphine Screen Not Detected; U Cannabinoids Screen Not Detected; U Cocaine Screen Not Detected; U Methadone Screen Not Detected; U Methamphetamine Screen Not Detected; U Opiates Screen Not Detected; U Oxycodone Screen Not Detected; U Phencyclidine Screen Not Detected; U Propoxyphene Screen Not Detected
[2021-01-20 23:21] LABS: PCO2 Arterial 60.2 mmHg (35-45); PO2 Arterial 67.3 mmHg (80-100)
--- NOTE | 2021-01-21 | NUR ---
REASSESSMENT NO ACUTE CHANGES FROM INITIAL ASSESSMENT. PATIENT MORE AROUSABLE. ORIENTED TO SITUATION, BUT STILL LETHARGIC. DEXTROSE INFUSING ORDERED. CONTINUING TO MONITOR CBG ORDERED. CHAN REMAINS DRAINING YELLOW, SEDIMENT PRESENT URINE. WILL CONTINUE TO MONITOR.
[2021-01-21 02:14] LABS: BASOPHILS ABSOLUTE AUTO 0.03 K/mm3 (0.00-0.23); BASOPHILS PERCENT AUTO 0 % (0-2); EOSINOPHILS ABSOLUTE AUTO 0.19 K/mm3 (0.00-0.68); EOSINOPHILS PERCENT AUTO 2 % (0-6); Hematocrit 31.3 % (33.0-51.0); Hemoglobin 9.5 g/dL (11.5-16.0); IMMATURE GRAN ABSOLUTE AUTO 0.05 K/mm3 (0.00-0.10); IMMATURE GRAN PERCENT AUTO 1 % (0-1); LYMPHOCYTES ABSOLUTE AUTO 2.27 K/mm3 (0.84-5.20); LYMPHOCYTES PERCENT AUTO 21 % (21-46); MONOCYTES ABSOLUTE AUTO 0.84 K/mm3 (0.16-1.47); MONOCYTES PERCENT AUTO 8 % (4-13); Mean Corpuscular HGB 28.4 pg (26.0-34.0); Mean Corpuscular HGB Conc 30.4 g/dL (31.5-36.5); Mean Corpuscular Volume 94 fL (80-100); Mean Platelet Volume 9.8 fL (9.1-12.4); NEUTROPHILS ABSOLUTE AUTO 7.42 K/mm3 (1.96-9.15); NEUTROPHILS PERCENT AUTO 69 % (41-73); Platelet Count 316 K/mm3 (150-400); RDW Coefficient Variation 17.2 % (11.7-14.2); Red Blood Cell Count 3.34 M/mm3 (3.80-5.20)
[2021-01-21 02:31] LABS: Albumin, Blood 2.1 g/dL (3.4-5.0); Albumin/Globulin Ratio 0.4 (0.8-1.8); Bilirubin, Total 0.3 mg/dL (0.1-1.0); Bun/Creatinine Ratio 18.1 (12.0-20.0); Calcium, Blood 8.5 mg/dL (8.5-10.1); Creatinine, Blood 1.27 mg/dL (0.40-1.00); Globulin, Blood 4.7 g/dL (2.2-4.0); Potassium, Blood 4.6 mmol/L (3.5-5.5); Total Protein, Blood 6.8 g/dL (6.4-8.2)
--- NOTE | 2021-01-21 04:00 | NUR ---
REASSESSMENT NO ACUTE CHANGES FROM PREVIOUS ASSESSMENT. PATIENT A/O X4. FOLLOWS DIRECTIONS. ORAL CARE PROVIDED, BREAK OFF CPAP, DESAT TO MID 80'S ON ROOM AIR. PATIENT ASSISTED WITH TURNING SELF. WOUND CARE PROVIDED TO LEFT ANKLE PER DRESSING SATURATED WITH BROWN, THICK DRAINAGE. WOUND CLEANED AND FRESH DRESSING PROVIDED. VITALS REMAIN STABLE. CBG CONTINUE EVERY HOUR, D10 IVF INFUSING ORDERED. WILL CONTINUE TO MONITOR.
--- NOTE | 2021-01-21 06:22 | NUR ---
SHIFT SUMMARY PATIENT INCREASINGLY ALERT, REMOVED BIPAP MASK AND PLACED 2L 02 VIA NC WITH SATS MAINTAINING ABOVE 90%. BLOOD SUGAR LEVELS CONSISTENTLY IN THE 80'S ON D10 AT 100ML/HR ORDERED. WOUNDS TO LEFT FOOT REDRESSED AND CLEANED. CHAN CATHETER WITH CLEAR, YELLOW URINE. NO SEDIMENT NOTED THIS MORNING. REDNESS AND MOISTURE CLEANED FROM ABDOMINAL FOLDS AND NYSTATIN CREAM WAS PLACED CHARTED. REDNESS APPEARED TO IMPROVE. LEFT LEG IS RED AND WARM TO TOUCH, PATIENT STATES SHE SEES HER PCP FOR THIS CHRONIC ISSUE. LABS WERE REVIEWED, WILL GIVE REPORT TO ONCOMING RN.
--- NOTE | 2021-01-21 09:00 | NUR ---
ASSUMED CARE BEDSIDE REPORT RECIEVED. PT IS AWAKE, ALERT, AND ORIENTED TO SELF. PT ANSWERS SOME QUESTIONS APPROPRIATELY, BUT SPEECH IS GARBLED AND NONSENSICAL AT TIMES. PT DENIES PAIN, OR SOB AT THIS TIME. VITAL SIGNS STABLE. PT ON 2L O2 NC. CENTRAL LINE IN PLACE TO RIJ WITH D10 INFUSING AT 125 ML/HR. PT WITH CONTINUED HYPOGLYCEMIA. NS INFUSING TKO. CHAN TEMP PROBE IN PLACE WITH CLOUDY YELLOW OUTPUT NOTED. PT WITH RIGHT BKA NOTED. LEFT LOWER EXTREMITY IS COOL AND REDDENED WITH WOUNDS NOTED. WILL CONTINUE TO MONITOR.
--- NOTE | 2021-01-21 15:12 | NUR ---
INCREASING ANXEITY/AGITATION PT IS RESTLESS AND FIDGETTING WITH LINES/TUBES. PT PROVIEDED WITH FAN PER REQUEST. PT CALLED DAUGHTER IN LAW PER REQUEST. PT CONTINUES TO REMAIN RESTLESS. PT PULLING ON CHAN CATHETER AND TELE LEADS DESPITE MULTIPLE ATTEMPTS TO REDIRECT PT. DR MCNALLY UPDATED. CBG IMPROVED AND D10 GTT ON STANDBY AT THIS TIME. WILL CONTINUE TO MONITOR.
--- NOTE | 2021-01-21 16:41 | NUR ---
SHIFT SUMMARY NO ACUTE CHANGES AT THIS TIME. PT REMAINS CONFUSED AND IMPULSIVE. PT IS LESS AGITATED AND RESTLESS AFTER MED WITH ATIVAN. PT FOLLOWS SIMPLE COMMANDS. VITAL SIGNS STABLE. PT ON ROOM AIR DUE TO NOT KEEPING NC IN NOSE, OTHERWISE PT ON 2L O2 NC. CENTRAL LINE TO RIJ REMAINS IN PLACE. NS INFUSING TKO. D10 REMAINS ON STANDBY AT THIS TIME. CHAN TEMP PROBE REMAINS IN PLACE WITH LARGE AMOUNT OF CLEAR YELLOW OUTPUT NOTED. WOUNDS TO LLE REMAIN UNCHANGED. PT TOLERATING PO INTAKE WELL. WILL CONTINUE TO MONITOR AND REPORT OFF TO ONCOMING RN.
[2021-01-21 21:50] LABS: Vancomycin, Trough 18.9 ug/mL (5.0-10.0)
--- NOTE | 2021-01-22 04:58 | NUR ---
SHIFT SUMMARY PATIENT IS ALERT AND ORIENTED TO SELF AND PLACE. CONFUSED AND GARBLED SPEECH. PATIENT MOANING BUT WHEN ASKED WHY SHE JUST SAYS "I DO NOT KNOW". PATIENT PULLING AT CENTRAL LINE AND CORDS, CALLED HOSPITALIST, ORDERS FOR RESTRAINTS AND MEDICATED PER EMAR. PATIENT SLEPT MOST THE NIGHT, PULLING RESTRAINTS AT TIMES. TURNED Q2 HOURS, BRIEF CHANGES NEEDED, PATIENT HAVING SOFT BROWN STOOLS. CHAN IN PLACE AND DRAINING. 02 SATS >90% ON 3L VIA NC. VSS, NO ACUTE CHANGES. LAST BLOOD GLUCOSE 90, WILL RECHECK. CALL LIGHT IN REACH.
[2021-01-22 07:01] LABS: BASOPHILS ABSOLUTE AUTO 0.05 K/mm3 (0.00-0.23); BASOPHILS PERCENT AUTO 0 % (0-2); EOSINOPHILS ABSOLUTE AUTO 0.17 K/mm3 (0.00-0.68); EOSINOPHILS PERCENT AUTO 2 % (0-6); Hematocrit 32.5 % (33.0-51.0); Hemoglobin 9.8 g/dL (11.5-16.0); IMMATURE GRAN ABSOLUTE AUTO 0.03 K/mm3 (0.00-0.10); IMMATURE GRAN PERCENT AUTO 0 % (0-1); LYMPHOCYTES ABSOLUTE AUTO 2.45 K/mm3 (0.84-5.20); LYMPHOCYTES PERCENT AUTO 22 % (21-46); MONOCYTES PERCENT AUTO 8 % (4-13); Mean Corpuscular HGB 28.2 pg (26.0-34.0); Mean Corpuscular HGB Conc 30.2 g/dL (31.5-36.5); Mean Corpuscular Volume 94 fL (80-100); Mean Platelet Volume 9.7 fL (9.1-12.4); NEUTROPHILS ABSOLUTE AUTO 7.73 K/mm3 (1.96-9.15); NEUTROPHILS PERCENT AUTO 68 % (41-73); Platelet Count 308 K/mm3 (150-400); RDW Coefficient Variation 17.3 % (11.7-14.2); Red Blood Cell Count 3.47 M/mm3 (3.80-5.20); White Blood Cell Count 11.33 K/mm3 (4.00-11.30)
[2021-01-22 07:20] LABS: Albumin, Blood 1.9 g/dL (3.4-5.0); Anion Gap 2 mmol/L (6-16); Blood Urea Nitrogen 15 mg/dL (8-24); Bun/Creatinine Ratio 13.6 (12.0-20.0); CO2, Blood 32 mmol/L (21-32); Calcium, Blood 8.4 mg/dL (8.5-10.1); Chloride, Blood 106 mmol/L (98-108); Glomerular Filtration Rate 53 (60-); Glucose, Blood 85 mg/dL (70-99); Phosphorus, Blood 3.4 mg/dL (2.5-4.9); Potassium, Blood 4.7 mmol/L (3.5-5.5); Sodium, Blood 140 mmol/L (136-145)
--- NOTE | 2021-01-22 11:01 | NUR ---
NOTIFIED DR MCNALLY OF CBG OF 75; NO NEW ORDERS, CONTINUE Q1H CBG
--- NOTE | 2021-01-22 16:40 | NUR ---
SHIFT SUMMARY THIS AM PT RESPONDING TO PAINFUL STIMULI; AND QUICKLY FALLING BACK TO SLEEP. PT ALERT AT ABOUT 1150 THIS AM, ORIENTED TO PERSON, PLACE AND TIME. PT CALM AND COOPERATIVE WITH CARE. PT MODERATE TWO PERSON ASSIST REPOSITIONING IN BED. WORKING WITH PT/OT. PT DENIES PAIN, SOB, NASUEA AND DIZZINESS. CBG THIS AM 70-90'S, PT UNABLE TO WAKE TO EAT BREAKFAST; AFTER PT ATE LUNCH CBG 180-190'S; NOTITIFED DR MCNALLY, CONTINUE TO Q4 CBG. SOB WITH EXERTION AND REPOSITIONING; ON 3L O2 VIA NC T/O SHIFT. PT RECEEIVING IV ANTIBIOTICS. VSS. NO OTHER ACUTE CHANGES NOTED. WILL CONTINUE TO MONITOR UNITL REPORT GIVEN TO ONCOMING RN.
--- NOTE | 2021-01-22 18:36 | NUR ---
PT REQUESTING ATIVAN, STATES SHE IS ANXIOUS; NOTIFIED DR MCNALLY, NEW ORDERS FOR ATIVAN PO 1MG NOW. WILL CONTINUE TO MONITOR.
--- NOTE | 2021-01-22 18:51 | NUR ---
DR WONG INTO SEE PATIENT.
--- NOTE | 2021-01-22 20:27 | NUR ---
TRANFER OF CARE REPORT GIVEN TO CHASITY ROMAN TO ASSUME CARE. VS STABLE. PT REPORTS NO CP OR PRESSURE. OXYGEN SATURATION MAINTAINED AGOVE 92%. LEG WOUNDS DRESSED IN [place].
--- NOTE | 2021-01-23 00:19 | NUR ---
DUE TO MEDITECH DOWNTIME - SEE CRITICAL CARE TRIFCHAO
--- NOTE | 2021-01-23 05:50 | NUR ---
SHIFT SUMMARY PT RESTED WELL THROUGH NIGHT. ALERT AND ORIENTED X2-3. INTERMITTENT CONFUSION - NEEDS REORIENTATION. PT TENDS TO YELL FROM ROOM INSTEAD OF USE CALL LIGHT. SATS >90% ON 3-5LNC. TELE NSR. CHAN IN PLACE - DRAINING TO GRAVITY, BRONWYN CARE PERFORMED. ADEQUATE UOP. NO BM. Q2 TURNS IN BED. WOUNDS ON LLE COVERED WITH SILVER NITRATE AND MEPILEX. NO C/O PAIN. VSS. CALL LIGHT WITHIN REACH, BED IN LOWEST POSITION. WILL CONTINUE TO MONITOR.
--- NOTE | 2021-01-23 07:30 | NUR ---
ASSUMED CARE PT RESTING IN BED, AWAKE AND ALERT. VSS OVERNIGHT, STILL HAS SOME CONFUSION, CLAIMS THAT THERE ARE BUGS ON THE CEILING. NO C/O PAIN, DOPPLER PULSES ON BLE, WOUNDS DRESSED AND COVERED. POSSIBLE SURG FROM YESTAERDAY DAY SHIFT REPORT, BUT NO NOTES FOUND FROM HOSE TURNER. AWAITING VERIFICATION BY HOSPITALISTS BEFORE BREAKFAST TRAY GIVEN.
[2021-01-23 09:42] LABS: BASOPHILS ABSOLUTE AUTO 0.04 K/mm3 (0.00-0.23); BASOPHILS PERCENT AUTO 0 % (0-2); EOSINOPHILS ABSOLUTE AUTO 0.17 K/mm3 (0.00-0.68); EOSINOPHILS PERCENT AUTO 2 % (0-6); Hematocrit 32.9 % (33.0-51.0); Hemoglobin 9.8 g/dL (11.5-16.0); IMMATURE GRAN ABSOLUTE AUTO 0.05 K/mm3 (0.00-0.10); IMMATURE GRAN PERCENT AUTO 1 % (0-1); LYMPHOCYTES ABSOLUTE AUTO 2.19 K/mm3 (0.84-5.20); LYMPHOCYTES PERCENT AUTO 22 % (21-46); MONOCYTES ABSOLUTE AUTO 0.81 K/mm3 (0.16-1.47); MONOCYTES PERCENT AUTO 8 % (4-13); Mean Corpuscular HGB 28.1 pg (26.0-34.0); Mean Corpuscular HGB Conc 29.8 g/dL (31.5-36.5); Mean Corpuscular Volume 94 fL (80-100); Mean Platelet Volume 9.8 fL (9.1-12.4); NEUTROPHILS ABSOLUTE AUTO 6.75 K/mm3 (1.96-9.15); NEUTROPHILS PERCENT AUTO 67 % (41-73); Platelet Count 319 K/mm3 (150-400); RDW Coefficient Variation 17.2 % (11.7-14.2); Red Blood Cell Count 3.49 M/mm3 (3.80-5.20); White Blood Cell Count 10.01 K/mm3 (4.00-11.30)
[2021-01-23 10:16] LABS: Vancomycin, Trough 34.1 ug/mL (5.0-10.0)
[2021-01-23 10:18] LABS: Albumin, Blood 1.9 g/dL (3.4-5.0); Albumin/Globulin Ratio 0.4 (0.8-1.8); Bilirubin, Total 0.4 mg/dL (0.1-1.0); Bun/Creatinine Ratio 12.7 (12.0-20.0); Calcium, Blood 8.4 mg/dL (8.5-10.1); Creatinine, Blood 1.02 mg/dL (0.40-1.00); Globulin, Blood 5.2 g/dL (2.2-4.0); Potassium, Blood 4.7 mmol/L (3.5-5.5); Total Protein, Blood 7.1 g/dL (6.4-8.2)
--- NOTE | 2021-01-23 18:29 | NUR ---
SHIFT SUMMARY PT UP TO CHAIR FOR MOST OF THE DAY. NPO UNTIL A ABLE TO REACH [facility] OFFICE , ABLE TO GET PT HER LUNCH TRAY AY 1330. BACK TO BED WITH 2 ASSIST AROUND 1600, PT CALLED ME IN ROOM STATING SHE COULD NOT BREATH. O2 SATSLOW 90'S BUT OK, PT TACHYPNIC AND DIAPHORETIC. BIPAP PLACED AND STAYED WITH PT WHILE RT ENROUTE. NO WHEEZES HEAR ON AUSCULTATION, JUST TIGHT AND SHALLOW. NO BREATHING TRX ORDERED. PT ASKED FOR BIPAP TO BE REMOVED AFTER ABOUT 10 MINUTES. NC REPLACED WITH 3L RUNNING AND CALLED FOR ANXIETY MEDS FOR THE PT. INSENTIVE SPIROMETER BROUGHT IN AND STARTED WITH PT ONLY ABLE TO REACH 250, ENCOURAGED 10/HR. DINNER TRAY BROUGHT IN, PT STARTED TO EAT AND CALLED ME IN AGAIN, STATING SHE COULDNT BREATH. REMOVED TRAY AND SAT PT UP MORE, THEN ASSISTED HER INTO THE CHAIR. PT ERFUSED THE REST OF DINNER TRAY. ATIVAN 1MG ORAL GIVEN FOR ANXIETY. PT STILL UP IN CHAIR AND NOW SPEAKING TO HER FRIEND ON THE PHONE WITH NO EVIDENCE OF DISTRESS. VSS DURING SHIFT AND O2 WEANED FROM 5L TO 3L. BIPAP STILL AT BEDSIDE, CHAN IN PLACE AND 1 INCONTINENET BM THIS MORNING. URINE OUTPUT REMAINS GOOD. DR WILMA RICKETTS CAME TO SEE PT TODAY, STILL AWAITING WORD FROM KANNAN IF PROCEDURE SCHEDULES OR NOT.
[2021-01-24 05:25] LABS: BASOPHILS ABSOLUTE AUTO 0.04 K/mm3 (0.00-0.23); BASOPHILS PERCENT AUTO 0 % (0-2); EOSINOPHILS ABSOLUTE AUTO 0.21 K/mm3 (0.00-0.68); EOSINOPHILS PERCENT AUTO 2 % (0-6); Hematocrit 30.5 % (33.0-51.0); Hemoglobin 9.5 g/dL (11.5-16.0); IMMATURE GRAN ABSOLUTE AUTO 0.06 K/mm3 (0.00-0.10); IMMATURE GRAN PERCENT AUTO 1 % (0-1); LYMPHOCYTES ABSOLUTE AUTO 2.61 K/mm3 (0.84-5.20); LYMPHOCYTES PERCENT AUTO 25 % (21-46); MONOCYTES ABSOLUTE AUTO 0.81 K/mm3 (0.16-1.47); MONOCYTES PERCENT AUTO 8 % (4-13); Mean Corpuscular HGB 28.5 pg (26.0-34.0); Mean Corpuscular HGB Conc 31.1 g/dL (31.5-36.5); Mean Corpuscular Volume 92 fL (80-100); Mean Platelet Volume 9.7 fL (9.1-12.4); NEUTROPHILS ABSOLUTE AUTO 6.66 K/mm3 (1.96-9.15); NEUTROPHILS PERCENT AUTO 64 % (41-73); Platelet Count 282 K/mm3 (150-400); RDW Coefficient Variation 16.9 % (11.7-14.2); Red Blood Cell Count 3.33 M/mm3 (3.80-5.20); White Blood Cell Count 10.39 K/mm3 (4.00-11.30)
[2021-01-24 05:43] LABS: Anion Gap 4 mmol/L (6-16); Blood Urea Nitrogen 13 mg/dL (8-24); Bun/Creatinine Ratio 13.4 (12.0-20.0); CO2, Blood 30 mmol/L (21-32); Calcium, Blood 7.9 mg/dL (8.5-10.1); Chloride, Blood 105 mmol/L (98-108); Creatinine, Blood 0.97 mg/dL (0.40-1.00); Glomerular Filtration Rate >60 (60-); Glucose, Blood 175 mg/dL (70-99); Potassium, Blood 4.4 mmol/L (3.5-5.5); Sodium, Blood 139 mmol/L (136-145)
--- NOTE | 2021-01-24 05:49 | NUR ---
SHIFT SUMMARY NO ACUTE CHANGES THIS SHIFT. VSS WITH SOME HTN NOTED 150'S/160'S SBP. PT AXO W/OUT ANXIETY ATTACK THIS SHIFT. PT SR/ST 90'S - 100'S. ON 3L NC, DESATS QUICKLY WITH NC FALLING OUT OF NOSE BUT RECOVERS QUICKLY HAY HIGH 90'S WITH REPLACEMENT. . ONE BM THIS SHIFT. CENTRSAL LINE SECURE. CHAN PATENT AND DRAINING TO GRAVITY. WOUND DRESSINGS CHANGED TO FOOT. PT TO CHAIR AND BACK THIS SHIFT. OTHERWISE, USING CALL LIGHT APPROPRIATELY. SLEPT OFF AND ON THIS SHIFT. WILL CONTINUE TO MONITOR UNTIL SHIFT CHANGE.
--- NOTE | 2021-01-24 07:19 | NUR ---
ASSUMED CARE PT SITTING UP ON THE SIDE OF THE BED. VSS OVERNIGHT, NO C/O PAIN AND NO ANXIETY ISSUES. WILL CONTINUE TO MONITOR
--- NOTE | 2021-01-24 14:45 | NUR ---
DISCHARGE INSTRUCTION DISCUSSED WITH PATIENT AND DAUGHTER IN LAW, CHAN REMOVED WITH NO EVIDENCE OF ISSUES, RIJ REMOVED WITH NO EVIDANCE OF BLEEDING. DISCUSSED IMPORTANCE OF FOLLOWING THROUGHT WITH MD APPOINTMENTS. ALL MD'S OFFICES CALLED AND MESSAGES LEFT FOR THEM TO CALL HER FOR APPOINTMENT. PT TRANSPORTED VIA WHEELCHAIR TO AWAITING VEHICLE WITH ALL PERSONAL POSSESIONS
== END 2021-01-24 15:00 | disposition home health service (06) | DRG 871 ==
LOC: ER 13:09 → ERHOLD 16:46 → ICUW 16:46
PROVIDERS: Family Medicine; Internal Medicine; Physician Assistant; ADMIT Internal Medicine
PROC: 02HV33Z Insertion of Infusion Device into Superior Vena Cava, Percutaneous Approach (ICD-10-PCS; principal; 2021-01-20)
PROC: 5A09357 Assistance with Respiratory Ventilation, Less than 24 Consecutive Hours, Continuous Positive Airway Pressure (ICD-10-PCS; 2021-01-20)
DX: A41.9 Sepsis, unspecified organism (principal); G92 Toxic encephalopathy; N39.0 Urinary tract infection, site not specified; N17.9 Acute kidney failure, unspecified; L03.115 Cellulitis of right lower limb; L03.116 Cellulitis of left lower limb; L97.322 Non-pressure chronic ulcer of left ankle with fat layer exposed; E86.0 Dehydration; Z51.5 Encounter for palliative care; E16.2 Hypoglycemia, unspecified; E88.09 Other disorders of plasma-protein metabolism, not elsewhere classified; Z89.511 Acquired absence of right leg below knee; G40.909 Epilepsy, unspecified, not intractable, without status epilepticus; F32.9 Major depressive disorder, single episode, unspecified; J44.9 Chronic obstructive pulmonary disease, unspecified; E11.69 Type 2 diabetes mellitus with other specified complication; E11.622 Type 2 diabetes mellitus with other skin ulcer; Z78.1 Physical restraint status; E11.51 Type 2 diabetes mellitus with diabetic peripheral angiopathy without gangrene; N18.30 Chronic kidney disease, stage 3 unspecified; E11.22 Type 2 diabetes mellitus with diabetic chronic kidney disease; Z99.81 Dependence on supplemental oxygen; F17.210 Nicotine dependence, cigarettes, uncomplicated; Z79.4 Long term (current) use of insulin
CPT/HCPCS: 36415; 36556; 36600; 51703; 70450; 71045; 73610; 73630; 73700; 74176; 80048; 80053; 80069; 80202; 81001; 82803; 82947; 83880; 84443; 85025; 87040; 87086; 93005; 93010; 93922; 93970; 94660; 94761; 96361; 96374; 96376; 97110; 97162; 97165; 97530; 99285-25; A9270; C1751; J0360; J0610; J0713; J1630; J1650; J2405; J3370; J7050; P9046

== ENCOUNTER 2021-01-29 12:56 | Inpatient (IN) | payer MEDICARE, OTHER ==
[~2021-01-29] VITALS: Ht 152.4 cm; Wt 117.8 kg
[2021-01-29 13:30] LABS: Source, Urine Catheter
[2021-01-29 13:34] LABS: Bilirubin, Urine Neg (Neg); Blood, Urine Neg (Neg); Glucose Qualitative, Urine 3+ (Neg); Ketones, Urine Neg (Neg); Leukocyte Esterase, Urine 1+ (Neg); Nitrite, Urine Neg (Neg); Protein, Urine 4+ (Neg); Specific Gravity, Urine 1.025 (1.003-1.022); Urobilinogen, Urine NORM (Normal)
[2021-01-29 13:38] LABS: BASOPHILS ABSOLUTE AUTO 0.04 K/mm3 (0.00-0.23); BASOPHILS PERCENT AUTO 0 % (0-2); EOSINOPHILS ABSOLUTE AUTO 0.16 K/mm3 (0.00-0.68); EOSINOPHILS PERCENT AUTO 1 % (0-6); Hematocrit 33.1 % (33.0-51.0); Hemoglobin 9.9 g/dL (11.5-16.0); IMMATURE GRAN ABSOLUTE AUTO 0.06 K/mm3 (0.00-0.10); IMMATURE GRAN PERCENT AUTO 1 % (0-1); LYMPHOCYTES ABSOLUTE AUTO 3.13 K/mm3 (0.84-5.20); LYMPHOCYTES PERCENT AUTO 26 % (21-46); MONOCYTES ABSOLUTE AUTO 0.78 K/mm3 (0.16-1.47); MONOCYTES PERCENT AUTO 6 % (4-13); Mean Corpuscular HGB 28.4 pg (26.0-34.0); Mean Corpuscular HGB Conc 29.9 g/dL (31.5-36.5); Mean Corpuscular Volume 95 fL (80-100); Mean Platelet Volume 10.7 fL (9.1-12.4); NEUTROPHILS ABSOLUTE AUTO 7.96 K/mm3 (1.96-9.15); NEUTROPHILS PERCENT AUTO 66 % (41-73); Platelet Count 269 K/mm3 (150-400); RDW Coefficient Variation 17.6 % (11.7-14.2); RDW Standard Deviation 61.4 fL (35.1-46.3); Red Blood Cell Count 3.48 M/mm3 (3.80-5.20); White Blood Cell Count 12.13 K/mm3 (4.00-11.30)
[2021-01-29] MEDS ORDERED: CYMBALTA30 M2 PO (13:42)
[2021-01-29 13:43] LABS: Appearance, Urine Hazy (Clear); Color, Urine Yellow (P-Yellow)
[2021-01-29 13:45] LABS: Amorphous Mod (0-Heavy); Bacteria Mod /hpf; Red Blood Cells, Urine 0-2 /hpf (0-2); Squamous Epithelial Cells Few /hpf (Few)
[2021-01-29] MEDS ORDERED: HUMULIN 70100 UNIT/4 SC (13:48)
[2021-01-29] MEDS ORDERED: GABA300 PO (13:50)
[2021-01-29] MEDS ORDERED: TRAM50 PO (13:51)
[2021-01-29] MEDS ORDERED: BASAGLAR K100 UNIT/1 SC (13:51)
[2021-01-29] MEDS ORDERED: Amitriptyline100 MG PO (13:52)
[2021-01-29] MEDS ORDERED: Citalopram HBr40 MG PO (13:52)
[2021-01-29] MEDS ORDERED: HUMALOG KW100 UNIT/1 SC (13:52)
[2021-01-29] MEDS ORDERED: CLOP75 PO (13:53)
[2021-01-29] MEDS ORDERED: PANTOPRAZOLE SO40 M2 PO (13:53)
[2021-01-29] MEDS ORDERED: LEVE500 PO ×2 (13:53→13:54)
[2021-01-29] MEDS ORDERED: ATOR80 PO (13:53)
[2021-01-29 14:02] LABS: PCO2 Arterial 62.7 mmHg (35-45); PO2 Arterial 94.7 mmHg (80-100); pH Blood Arterial 7.31 (7.35-7.45)
[2021-01-29 14:04] LABS: Albumin/Globulin Ratio 0.4 (0.8-1.8); Bilirubin, Total 0.2 mg/dL (0.1-1.0); Bun/Creatinine Ratio 15.4 (12.0-20.0); Calcium, Blood 8.1 mg/dL (8.5-10.1); Creatinine, Blood 1.82 mg/dL (0.40-1.00); Globulin, Blood 5.2 g/dL (2.2-4.0); Potassium, Blood 5.1 mmol/L (3.5-5.5); Total Protein, Blood 7.2 g/dL (6.4-8.2)
[2021-01-29 14:36] LABS: U Amphetamine Screen Not Detected; U Barbituate Screen Not Detected; U Benzodiazapine Screen Not Detected; U Buprenorphine Screen Not Detected; U Cannabinoids Screen Not Detected; U Cocaine Screen Not Detected; U Methadone Screen Not Detected; U Methamphetamine Screen Not Detected; U Opiates Screen Not Detected; U Oxycodone Screen Not Detected; U Phencyclidine Screen Not Detected; U Propoxyphene Screen Not Detected
[2021-01-29] MEDS ORDERED: POTA10T PO (16:36)
[2021-01-29] MEDS ORDERED: Bumetanide2 MG PO (16:39)
[2021-01-29 17:24] LABS: Influenza A, PCR NEGATIVE (NEGATIVE); Influenza B, PCR NEGATIVE (NEGATIVE); Resp Syncytial Virus, PCR NEGATIVE (NEGATIVE); SARS-Cov-2 (COVID-19) PCR, MMC NEGATIVE (NEGATIVE)
--- NOTE | 2021-01-29 18:32 | NUR ---
RECEIVED CALL FROM DR LANGLEY, NEW ORDERS FOR BLOOD GLUCOSE CHECKS Q1 HOURS UNTIL CBG >150 FOR FOUR HOURS; THEN CHECK Q2.
[2021-01-29 18:53] LABS: Creatine Kinase MB 12.7 ng/mL (0.0-3.6); Creatine Kinase MB Index 8.2 (0.0-4.0)
[2021-01-29 19:04] LABS: Troponin I 2.63 ng/mL (0.000-0.040)
[2021-01-29 19:06] LABS: PO2 Arterial 78.2 mmHg (80-100)
--- NOTE | 2021-01-29 19:35 | NUR ---
RECEIVED REPORT FROM ALEXUS PT TO ROOM AT 1839. 5 PERSON TRANSFER ASSIST WITH SLIDER SHEET. PT LETHARGIC AT TIMES; WHEN AWAKE PULLING AT LINES, BIPAP AND STAFF MEMBERS. VSS. REPORT GIVEN TO ONCOMING RN.
--- NOTE | 2021-01-29 19:39 | NUR ---
[facility] CALLED DURING REPORT; NOC CHASITY HOROWITZ TO CALL HOSPITALIST.
--- NOTE | 2021-01-29 20:28 | NUR ---
[facility] LAB VOCERA'D TO NOTIFY OF CRITICAL LAB: TROPONIN 2.630. THIS IS INCREASED FROM PREVIOUS TROPONIN OF 1.860. CALL PLACED TO ORION FRANKLIN. ORION FRANKLIN WITH ORDERS FOR HEPARIN DRIP.
--- NOTE | 2021-01-29 20:29 | NUR ---
LOW CBG PT HAD LOW BLOOD SUGAR VALUE OF 57. PT WAS GIVEN D50 PER EMAR. CALL PLACED TO ORION FRANKLIN. ORION FRANKLIN WITH ORDERS TO CONTINUE Q1H CBG AND NOTIFY IF LOW AGAIN.
--- NOTE | 2021-01-30 00:18 | NUR ---
FAMILY CALLED PT'S DAUGHTER IN LAW, YARELIS, CALLED FOR PT UPDATE. FAMILY IS WORRIED ABOUT PT'S AMS AND BLOOD SUGARS. UPDATED THEM ON PT STATUS, VITALS, AND BLOOD SUGARS. PT'S DIL WILL BE IN TOMORROW TO VISIT.
[2021-01-30 05:43] LABS: PO2 Arterial 62.2 mmHg (80-100); pH Blood Arterial 7.35 (7.35-7.45)
[2021-01-30 06:17] LABS: Hematocrit 28.2 % (33.0-51.0); Hemoglobin 8.4 g/dL (11.5-16.0); Mean Corpuscular HGB Conc 29.8 g/dL (31.5-36.5); Mean Corpuscular Volume 94 fL (80-100); Platelet Count 227 K/mm3 (150-400); RDW Coefficient Variation 17.5 % (11.7-14.2); RDW Standard Deviation 61.1 fL (35.1-46.3); White Blood Cell Count 10.22 K/mm3 (4.00-11.30)
--- NOTE | 2021-01-30 06:45 | NUR ---
SHIFT SUMMARY PT LETHARGIC MOST OF SHIFT. SP02>88% ON BIPAP, FI02 30%. PT DID BECOME MORE ALERT AT APPROX 0300. PT REMOVED BIPAP AND SP02 MONITOR. NC PLACED ON PT. PT WAS ABLE TO ANSWER QUESTIONS, SAT ON EDGE OF BED WITH HELP. ALLOWED ORAL CARE. AFTER APPROX 20 MIN ON NC, PT BECAME SOMULENT AND WENT BACK TO SLEEP. BIPAP PLACED BACK ON PT. PT AWOKE AGAIN AT APPROX 0630, WANTED BIPAP OFF. PT CURRENTLY RESTING IN ROOM WITH NC ON AT 4L. TELEMETRY HAS READ SR W/ PAC'S HR 90'S. PT HAS CHAN CATHETER DRAINING TO GRAVITY. WHEN PT WAS AWAKE AT 0300, PT C/O OF MIGRAINE HEADACHE. PT STATED SHE TAKES EXCEDRIN PM AT HOME. CALL PLACED TO MD DODD. MD DODD W/ ORDERS FOR EXCEDRIN PM. ENTERED PT'S ROOM TO GIVE AND PT WAS ASLEEP/SOMULENT. PT HAD EPISODES OF LOW BLOOD SUGAR. 3 AMPS OF D50 GIVEN DURING SHIFT. CALL PLACED TO MD DODD. MD DODD W/ ORDERS FOR D5 DRIP. PT ALSO HAD CRITIAL TROPONIN THIS SHIFT, HEPARIN DRIP STARTED, SEE PREVIOUS NOTE. IMAGINING WAS IN PT'S ROOM THIS AM FOR CHEST XRAY. CALL SAKINA HORTA.
[2021-01-30 06:53] LABS: Bun/Creatinine Ratio 16.9 (12.0-20.0); Creatinine, Blood 1.66 mg/dL (0.40-1.00); Magnesium, Blood 1.8 mg/dL (1.6-2.4); Phosphorus, Blood 3.8 mg/dL (2.5-4.9); Potassium, Blood 4.9 mmol/L (3.5-5.5)
[2021-01-30 06:56] LABS: Troponin I 2.47 ng/mL (0.000-0.040)
[2021-01-30 08:38] LABS: CHOL/HDL RATIO 2.7; Cholesterol 94 mg/dL (50-200); HDL Cholesterol 35 mg/dL (>39); LDL/HDL RATIO 0.9; Low Density Lipoprotein Chol 32 mg/dL (0-110); Triglycerides 134 mg/dL (30-160); Very Low Density Lipoprot Chol 26 mg/dL (6-32)
[2021-01-30 14:38] LABS: Troponin I 1.56 ng/mL (0.000-0.040)
--- NOTE | 2021-01-30 16:08 | NUR ---
UPDATE: WOUNDS ON RIGHT LEFT LEG CLEANED AND DRESSED. WOUNDS PRESENT UNDER BIG TOE, ON INNER SIDE OF FOOT AND LEFT SIDE OF LOWER EXTREMITY. PT STATES SHE HAS HAD THESE WOUNDS FOR "TWO YEARS". WILL CONTINUE TO MONITOR. REFEUSED BED BATH TODAY, WILL TRY AGAIN TOMORROW.
--- NOTE | 2021-01-30 18:09 | NUR ---
SHIFT SUMMARY: PT ALERT AND ORIENTED X3. ON 5 L O2 SATING ABOVE 92%. RESPIRATORY IN TO PLACE BIPAP WHILE PT SLEEPING. PT TOLERATED FOR 20 MIN AND REFUSED. TELE SHOWING SINUS WITH PVC'S. HR 70-80'S. DENIES CHEST PAIN. VITAL SIGNS STABLE. NO ACUTE CHANGES. NEURO CHECKS Q 4 REMAINED UNCHANGED. CBG Q4. Q2 TURNING. WOUNDS CLEANSED AND WRAPPED. PT REFUSED BED BATH TODAY. HEPARIN INFUSING. NPO AT MIDNIGHT TONIGHT FOR POSSIBLE ANGIO TOMORROW. CHAN CATH IN PLACE DRAINING TO GRAVITY. WILL CONTINUE TO MONITOR AND REPORT OFF.
--- NOTE | 2021-01-31 05:47 | NUR ---
SHIFT SUMMARY PT ALERT, ANSWERS MOST QUESTIONS APPROPRIATELY. PT HAD SOME ANXIETY AT BEGINNING OF SHIFT. CALL PLACED TO VOLUMETRIC WEIGHER RIGOBERTO. VOLUMETRIC WEIGHER RIGOBERTO WITH ORDERS FOR ONE TIME XANEX, WITH SUCCESSFUL RELIEF OF ANXIETY. PT SP02>90% ON 5L NC. PT REFUSED TO WEAR BIPAP DURING THIS SHIFT. TELEMETRY READS SR-ST. PT C/O OF BACK PAIN. EGG SHELL CRATE PLACED ON MATTRESS AND Q2H REPOSITIONING. PT FREQUENTLY REQUESTED REPOSITIONING HOURLY. PT UP IN CHAIR PART OF NIGHT. HEPARIN INFUSING PER EMAR. CHAN CATHETER DRAINING TO GRAVITY. BED BATH GIVEN TONIGHT. PT NPO FOR POSSIBLE PROCEDURE. PT STATED THIS MORNING SHE WANTS TO GO HOME. PT CALLED DAUGHTER, ART, TO HELP CALM DOWN. PT NOW UP IN CHAIR, CROCHETING. CALL LIGHT IN REACH. WILL GIVE REPORT TO ONCOMING NURSE.
[2021-01-31 06:57] LABS: Hematocrit 29.3 % (33.0-51.0); Hemoglobin 9.1 g/dL (11.5-16.0); Mean Corpuscular HGB 28.6 pg (26.0-34.0); Mean Corpuscular HGB Conc 31.1 g/dL (31.5-36.5); Mean Corpuscular Volume 92 fL (80-100); Mean Platelet Volume 11.2 fL (9.1-12.4); Platelet Count 253 K/mm3 (150-400); RDW Coefficient Variation 17.2 % (11.7-14.2); Red Blood Cell Count 3.18 M/mm3 (3.80-5.20); White Blood Cell Count 13.07 K/mm3 (4.00-11.30)
[2021-01-31 07:18] LABS: Albumin, Blood 1.9 g/dL (3.4-5.0); Anion Gap 2 mmol/L (6-16); Blood Urea Nitrogen 27 mg/dL (8-24); Bun/Creatinine Ratio 20.6 (12.0-20.0); CO2, Blood 32 mmol/L (21-32); Calcium, Blood 8.4 mg/dL (8.5-10.1); Chloride, Blood 106 mmol/L (98-108); Creatinine, Blood 1.31 mg/dL (0.40-1.00); Glomerular Filtration Rate 44 (60-); Glucose, Blood 150 mg/dL (70-99); Phosphorus, Blood 2.9 mg/dL (2.5-4.9); Sodium, Blood 140 mmol/L (136-145)
--- NOTE | 2021-01-31 14:43 | NUR ---
PT TO [facility]ART CENTER VIA BED
--- NOTE | 2021-01-31 16:46 | NUR ---
PT BACK FROM HEART CENTER AT 1620. AWAKW AND ANSWERING QUESTIONS. ALERT AND ORIENTED X3. ON 4 L O2 SATING ABOVE 92%. RIGHT NECK SURGICAL SITE, WHERE ACCESS WAS ATTEMTPED. HEMATOMA PRESENT, SOFT AND NON TENDER. NO SIGNS OF ACTIVE BLEEDING. WILL CONTINUE TO MONITOR. VITALS STABLE.
--- NOTE | 2021-01-31 17:49 | NUR ---
RIGHT NECK SITE REMAINS THE SAME. WILL CONTINUE TO MONITOR SITE.
--- NOTE | 2021-01-31 18:15 | NUR ---
SHIFT SUMMARY: PT ALERT AND ORIENTED X3. ON 3-4 L O2 SATING ABOVE 92%. TELE SHOWING SR WITH HR 80'S. DENIES ANY CHEST PAIN. VITAL SIGNS STABLE. Q2 TURNING. CARMEN POWERGLIDE FLUSHING WELL. LEFT LOWER LEG WOUNDS CLEANSED AND NEW DRESSING APPLIED THIS AM. PT DENIES ANY PAIN WITH WOUNDS. RIGHT NECK SITE HEMATOMA FROM HEART CENTER PROCUDURE TODAY. HEMATOMA REMAINING UNCHANGED FROM HEART CENTER. PT STATES "IT FEELS LIKE A BRUISE. NO ACTIVE SIGNS OF BLEEDING. MONITORING CLOSELY. SPOKE WITH DAUGHTER IN LAW FAZAL ON PHONE AND GAVE HER UPDATE. PT ATE FULL DINNER AND NOW SLEEPING. CALL LIGHT REMAINED IN REACH, BED IN LOW LOCKED POSITION. WILL CONTINUE TO MONITOR AND REPORT OFF.
--- NOTE | 2021-02-01 04:53 | NUR ---
SHIFT SUMMARY PT WAS VERY ANXIOUS AND AGITATED T/O THE NIGHT. FREQUENTLY YELLING OUT AND TRYING TO GET OUT OF BED. PT WAS ALERT AND ORIENTED, ABLE TO ANSWER MOST QUESTIONS APPROPRIATELY BUT CONFUSED AT TIMES. PT WANTED TO GET OUT OF BED TO GO HOME AND WAS CALLING [id number] TO COME PICK HER UP. PT TOLD [id number] THAT SHE WAS CLEARED TO GO HOME AND HOSPITAL STAFF SAID IT WAS OK. [id number] CALLED TO CLEARIFY AND I SPOKE WITH HER, SHE WAS UNDERSTANDING. PT WAS YELLING AND BEING COMBATIVE AND TRYING TO ROLL OUT OF BED. PT STATED SHE WOULD STAY AT THE HOSPITAL AND CALM DOWN IF SHE COULD GET INTO RECLINER CHAIR. PT WAS HELPED INTO RECLINER CHAIR AND GIVEN XANAX. PT SLEPT FOR ABOUT 2 HOURS. PT WOKE UP AND WAS YELLING TO GET BACK INTO BED. PT WAS HELPED BACK INTO BED, SHORTLY AFTER PT WAS YELLING TO GET BACK INTO CHAIR. PO ATIVAN WAS GIVEN AND FENTANYL FOR PAIN. PT WAS TRANSFERED TO A LIFT ROOM CLOSER TO THE NURSES STATION. VITALS STABLE 150'S SYSTOLIC. HR 100'S. O2 SATS IN THE 90'S WHEN PT WEARINF NC AT 3.5 LPM. WHEN PT OFF NC O2 SATS WOULD DROP TO 70'S. PT CURRENTLY IN RECLINER CHAIR IN ROOM PCU 01.
--- NOTE | 2021-02-01 09:45 | NUR ---
MORNING UPDATE, ASSUMED CARE FROM NOC RN PT WAS REPORTED BEING AWAKE MOST OF THE NIGHT, OCCASSIONALLY AGRESSIVE AND VERY ANXIOUS. THIS MORNING THE PT HAS BEEN RESTING IN HER CHAIR, SHE SAT UP FOR BREAKFAST AND MEDS THEN REQUESTED TO LAY BACK DOWN IN BED. PT REPORTED SOME NAUSEA AND WAS TREATED PER EMAR ALONG WITH OTHER MORNING MEDICATIONS. PT HAS BEEN MOVED BACK TO BED VIA LIFT WITH 2 PERSON ASSIST. PT SLEEPING AT THIS TIME. POWERGLIDE WAS FLUSHED TO USE FOR MORNING LAB DRAW BUT CHASITY ORTEGA WAS UNABLE TO PULL OUT BLOOD FROM THE LINE, LAB WAS MADE AWARE TO COME AND DRAW THE LABS
[2021-02-01 09:55] LABS: Hematocrit 31.4 % (33.0-51.0); Hemoglobin 9.9 g/dL (11.5-16.0); Mean Corpuscular HGB 28.9 pg (26.0-34.0); Mean Corpuscular HGB Conc 31.5 g/dL (31.5-36.5); Mean Corpuscular Volume 92 fL (80-100); Platelet Count 266 K/mm3 (150-400); RDW Standard Deviation 57.1 fL (35.1-46.3); Red Blood Cell Count 3.43 M/mm3 (3.80-5.20); White Blood Cell Count 10.55 K/mm3 (4.00-11.30)
[2021-02-01 10:09] LABS: Anion Gap 2 mmol/L (6-16); Blood Urea Nitrogen 21 mg/dL (8-24); Bun/Creatinine Ratio 19.1 (12.0-20.0); CO2, Blood 35 mmol/L (21-32); Calcium, Blood 8.4 mg/dL (8.5-10.1); Chloride, Blood 104 mmol/L (98-108); Glomerular Filtration Rate 53 (60-); Glucose, Blood 256 mg/dL (70-99); Phosphorus, Blood 2.9 mg/dL (2.5-4.9); Potassium, Blood 4.1 mmol/L (3.5-5.5); Sodium, Blood 141 mmol/L (136-145)
--- NOTE | 2021-02-01 18:38 | NUR ---
SHIFT SUMMARY PT HAS BEEN SLEEPING ON AND OFF THROUGHOUT THE DAY TODAY, SHE HAS BEEN REPOSITIONED FREQUENTLY THROUGHOUT THE DAY. PT HAS BEEN MOVED FROM BED TO CHAIR MULTIPLE TIMES AND VISE VERSA USING THE CEILING LIFT. PT HAS HAD INSULIN COVERAGE TODAY AND HAS BEEN COOPERATIVE WITH TREATMENT AND MEDICATIONS. PT HAS BEEN ALERT AND ORIENTED TODAY AND HAS BEEN VERY PLEASANT. PT IS RESTING AT THIS TIME.
--- NOTE | 2021-02-01 20:15 | NUR ---
CALL WITH FAMILY SPOKE AT LENGTH WITH YARELIS ([id number]) ON THE PHONE. YARELIS EXPRESSED CONCERN BECAUSE SHE AND HER WERE ON THE PHONE IN THE PT'S ROOM WHILE DR. SPAULDING WAS PRESENT DISCUSSING PROGNOSIS AND PLAN. THE PT BECAME AGITATED AND UPSET, DECLARING THAT SHE WANTS A RIDE HOME. PER YARELIS, THIS IS A PATTERN ON VISUALIZATION DEVELOPER AND PT EXHIBITS AGITATION AND CONFUSION IN THE EVENINGS. YARELIS STATED THAT SHE DOES NOT BELIEVE THE PT IS COMPETENT TO MAKE HER OWN DECISIONS WHEN DISCUSSIONS ARE HELD IN THE EVENING. YARELIS AND THE FAMILY WOULD PREFER THAT FULL TREATMENT IS PURSUED, INCLUDING PROCEDURES DISCUSSED, AND FEEL THAT THE PATIENT SHOULD BE CONSENTED DURING DAY TIME HOURS OR ELSE IT SHOULD BE DETERMINED THAT SHE IS NOT COMPETENT TO MAKE HER OWN DECISIONS. UPDATED THE PRIMARY RN (LUCRETIA) OF THIS DISCUSSION AND PLAN WILL BE TO ATTEMPT ANOTHER DISCUSSION WITH PT AND FAMILY DURING DAY SHIFT.
--- NOTE | 2021-02-02 04:27 | NUR ---
SHIFT SUMMARY PT WAS MUCH MORE RELAXED THAN PREVIOUS NOC SHIFT. SHE WAS ALERT AND ORIENTED AND AGREEABLE WITH MOST OF HER CARE. SHE SLEPT IN THE RECLINER T/O THE NIGHT AND STATED FEELING WELL RESTED WHEN SHE WOKE UP. VITALS WERE STABLE. BP 143 SYSTOLIC AT START OF SHIFT DOWN TO 110'S T/O THE REMAINDER OF THE NIGHT. HR 90'S. O2 SATS >90% ON 2LPM, DESATS TO 80'S WHEN OFF O2 FOR PROLONGED TIME. PT WAS MUCH MORE COOPERATIVE AND HAD A BETTER MORE PRODUCTIVE NIGHT THAN PREVIOUS NOC SHIFT.
[2021-02-02 04:37] LABS: Hemoglobin 9.3 g/dL (11.5-16.0); Mean Corpuscular HGB 28.7 pg (26.0-34.0); Mean Corpuscular Volume 93 fL (80-100); Mean Platelet Volume 10.7 fL (9.1-12.4); Platelet Count 292 K/mm3 (150-400); RDW Coefficient Variation 16.9 % (11.7-14.2); RDW Standard Deviation 57.6 fL (35.1-46.3); Red Blood Cell Count 3.24 M/mm3 (3.80-5.20)
[2021-02-02 04:59] LABS: Albumin, Blood 1.9 g/dL (3.4-5.0); Anion Gap 1 mmol/L (6-16); Blood Urea Nitrogen 21 mg/dL (8-24); Bun/Creatinine Ratio 15.7 (12.0-20.0); CO2, Blood 37 mmol/L (21-32); Calcium, Blood 8.6 mg/dL (8.5-10.1); Chloride, Blood 102 mmol/L (98-108); Creatinine, Blood 1.34 mg/dL (0.40-1.00); Glomerular Filtration Rate 42 (60-); Glucose, Blood 237 mg/dL (70-99); Phosphorus, Blood 4.1 mg/dL (2.5-4.9); Potassium, Blood 4.3 mmol/L (3.5-5.5); Sodium, Blood 140 mmol/L (136-145)
[2021-02-02] MEDS ORDERED: METOPROLOL SUCC25 MG PO (11:54)
[2021-02-02] MEDS ORDERED: ASPI81CH PO (11:54)
--- NOTE | 2021-02-02 13:33 | NUR ---
PT DISHCARGE PT DISHCARGE INSTRUCTIONS RECEIVED FROM PHYSICIAN. NEW MEDICATION ORDERS AND PHYSICIAN INSTRUCTION PROVIDED TO PT AT BEDSIDE. SIGNED CONFIRMATION IN PT CHART. PT WILL BE TRANSPORTED BY [facility] D/T NONAMBULATORY STATE. CHAN REMOVED, WNL. POWERGLIDE REMOVED, WNL. VS STABLE. TELEMETRY REMOVED. FAMILY AWARE OF DISCHARGE. ORDERS FOR HOME HEALTH. PT CYNTHIA USES [facility]. WILL CONTINUE TO MONITOR UNTIL [facility] ARRIVAL FOR DEPARTURE.
== END 2021-02-02 15:11 | disposition home or self-care (01) | DRG 280 ==
LOC: ER 12:56 → PCU 15:25 → ERHOLD 15:25 → PCU 18:39
PROVIDERS: Emergency Medicine; ADMIT Internal Medicine
PROC: 5A09357 Assistance with Respiratory Ventilation, Less than 24 Consecutive Hours, Continuous Positive Airway Pressure (ICD-10-PCS; principal; 2021-01-29)
DX: I21.4 Non-ST elevation (NSTEMI) myocardial infarction (principal); J96.21 Acute and chronic respiratory failure with hypoxia; J96.22 Acute and chronic respiratory failure with hypercapnia; G92 Toxic encephalopathy; I50.23 Acute on chronic systolic (congestive) heart failure; I13.0 Hypertensive heart and chronic kidney disease with heart failure and stage 1 through stage 4 chronic kidney disease, or unspecified chronic kidney disease; N17.9 Acute kidney failure, unspecified; R65.10 Systemic inflammatory response syndrome (SIRS) of non-infectious origin without acute organ dysfunction; Z53.8 Procedure and treatment not carried out for other reasons; I25.10 Atherosclerotic heart disease of native coronary artery without angina pectoris; E66.01 Morbid (severe) obesity due to excess calories; E11.22 Type 2 diabetes mellitus with diabetic chronic kidney disease; J44.9 Chronic obstructive pulmonary disease, unspecified; E11.51 Type 2 diabetes mellitus with diabetic peripheral angiopathy without gangrene; K21.9 Gastro-esophageal reflux disease without esophagitis; N18.30 Chronic kidney disease, stage 3 unspecified; D63.1 Anemia in chronic kidney disease; I73.9 Peripheral vascular disease, unspecified; F32.9 Major depressive disorder, single episode, unspecified; G40.909 Epilepsy, unspecified, not intractable, without status epilepticus; I08.1 Rheumatic disorders of both mitral and tricuspid valves; E11.649 Type 2 diabetes mellitus with hypoglycemia without coma; E11.40 Type 2 diabetes mellitus with diabetic neuropathy, unspecified; L30.4 Erythema intertrigo; E78.5 Hyperlipidemia, unspecified; F17.210 Nicotine dependence, cigarettes, uncomplicated; Z90.49 Acquired absence of other specified parts of digestive tract; Z86.73 Personal history of transient ischemic attack (TIA), and cerebral infarction without residual deficits; Z88.0 Allergy status to penicillin; Z88.5 Allergy status to narcotic agent; Z88.6 Allergy status to analgesic agent; Z88.8 Allergy status to other drugs, medicaments and biological substances; Z79.899 Other long term (current) drug therapy; Z79.4 Long term (current) use of insulin; Z90.710 Acquired absence of both cervix and uterus; Z89.511 Acquired absence of right leg below knee; Z79.02 Long term (current) use of antithrombotics/antiplatelets; Z99.81 Dependence on supplemental oxygen; Z86.14 Personal history of Methicillin resistant Staphylococcus aureus infection; Z87.440 Personal history of urinary (tract) infections
CPT/HCPCS: 0241U; 36415; 36600; 51702; 70450; 71045; 76937; 80048; 80053; 80061; 80069; 81001; 82550; 82553; 82803; 82947; 83036; 83605; 83735; 83880; 84100; 84145; 84484; 85025; 85027; 85730; 87040; 87086; 93005; 93010; 93308; 93321; 93451; 93880; 94640; 94660; 94760; 94762; 96374-59; 96375-59; 99152; 99153; 99285-25; A9270; C1751; C1894; C9113; J1644; J1720; J1940; J1953; J2250; J2310; J2405; J3010; J7030; J7042; J7050

== ENCOUNTER 2021-02-13 12:55 | Emergency (ER) | payer MEDICARE, OTHER ==
[~2021-02-13] VITALS: Ht 167.6 cm; Wt 108.9 kg
[~2021-02-13 12:55] MED LIST changes: +Amitriptyline100 MG PO; +BASAGLAR K100 UNIT/1 SC; +CYMBALTA30 M2 PO; +Citalopram HBr40 MG PO; +HUMALOG KW100 UNIT/1 SC; +HUMULIN 70100 UNIT/4 SC; +METOPROLOL SUCC25 MG PO; +PANTOPRAZOLE SO40 M2 PO; +POTA10T PO
[2021-02-13 13:34] LABS: BASOPHILS ABSOLUTE AUTO 0.04 K/mm3 (0.00-0.23); BASOPHILS PERCENT AUTO 0 % (0-2); EOSINOPHILS ABSOLUTE AUTO 0.16 K/mm3 (0.00-0.68); EOSINOPHILS PERCENT AUTO 1 % (0-6); Hematocrit 32.9 % (33.0-51.0); Hemoglobin 9.9 g/dL (11.5-16.0); IMMATURE GRAN ABSOLUTE AUTO 0.14 K/mm3 (0.00-0.10); IMMATURE GRAN PERCENT AUTO 1 % (0-1); LYMPHOCYTES PERCENT AUTO 15 % (21-46); MONOCYTES ABSOLUTE AUTO 0.66 K/mm3 (0.16-1.47); MONOCYTES PERCENT AUTO 6 % (4-13); Mean Corpuscular HGB 28.3 pg (26.0-34.0); Mean Corpuscular HGB Conc 30.1 g/dL (31.5-36.5); Mean Corpuscular Volume 94 fL (80-100); NEUTROPHILS ABSOLUTE AUTO 8.51 K/mm3 (1.96-9.15); NEUTROPHILS PERCENT AUTO 76 % (41-73); RDW Coefficient Variation 16.5 % (11.7-14.2); RDW Standard Deviation 56.3 fL (35.1-46.3); White Blood Cell Count 11.21 K/mm3 (4.00-11.30)
[2021-02-13 13:48] LABS: Albumin, Blood 2.1 g/dL (3.4-5.0); Albumin/Globulin Ratio 0.4 (0.8-1.8); Bilirubin, Total 0.1 mg/dL (0.1-1.0); Bun/Creatinine Ratio 17.5 (12.0-20.0); Calcium, Blood 8.4 mg/dL (8.5-10.1); Creatinine, Blood 1.43 mg/dL (0.40-1.00); Globulin, Blood 5.2 g/dL (2.2-4.0); Potassium, Blood 5.1 mmol/L (3.5-5.5); Total Protein, Blood 7.3 g/dL (6.4-8.2)
[2021-02-13 13:53] LABS: Mean Platelet Volume 11.2 fL (9.1-12.4); Platelet Count 310 K/mm3 (150-400)
[2021-02-13 14:23] LABS: Influenza A, PCR NEGATIVE (NEGATIVE); Influenza B, PCR NEGATIVE (NEGATIVE); Resp Syncytial Virus, PCR NEGATIVE (NEGATIVE); SARS-Cov-2 (COVID-19) PCR, MMC NEGATIVE (NEGATIVE)
[2021-02-13 14:50] LABS: PCO2 Venous 61.8 mmHg (38-42); pH Blood Venous 7.29 (7.34-7.37)
== END 2021-02-13 15:50 | disposition home or self-care (01) ==
LOC: ER 12:55
PROVIDERS: Emergency Medicine
DX: E11.649 Type 2 diabetes mellitus with hypoglycemia without coma (principal); E11.22 Type 2 diabetes mellitus with diabetic chronic kidney disease; E11.40 Type 2 diabetes mellitus with diabetic neuropathy, unspecified; G93.41 Metabolic encephalopathy; K21.9 Gastro-esophageal reflux disease without esophagitis; J44.9 Chronic obstructive pulmonary disease, unspecified; N18.30 Chronic kidney disease, stage 3 unspecified; F17.210 Nicotine dependence, cigarettes, uncomplicated; Z91.041 Radiographic dye allergy status; Z88.6 Allergy status to analgesic agent; Z79.02 Long term (current) use of antithrombotics/antiplatelets; Z20.822 Contact with and (suspected) exposure to COVID-19
CPT/HCPCS: 0241U; 71045; 80053; 82140; 82803; 82947; 85025; 93005; 93010; 96361; 96374; 96375; 99285-25; J1610; J2310; J7042

== ENCOUNTER 2021-02-25 04:16 | Emergency (ER) | payer MEDICARE, OTHER ==
[~2021-02-25] VITALS: Ht 170.2 cm; Wt 113.4 kg
== END 2021-02-25 05:53 | disposition home or self-care (01) ==
LOC: ER 04:16
DX: R06.02 Shortness of breath (principal); J44.9 Chronic obstructive pulmonary disease, unspecified; E11.9 Type 2 diabetes mellitus without complications; F17.210 Nicotine dependence, cigarettes, uncomplicated; Z79.899 Other long term (current) drug therapy; Z79.4 Long term (current) use of insulin; Z79.82 Long term (current) use of aspirin; Z91.041 Radiographic dye allergy status; Z88.6 Allergy status to analgesic agent; Z88.0 Allergy status to penicillin; Z88.5 Allergy status to narcotic agent; Z88.8 Allergy status to other drugs, medicaments and biological substances; Z86.73 Personal history of transient ischemic attack (TIA), and cerebral infarction without residual deficits
CPT/HCPCS: 99284